=== PATIENT | male | born 1930 | race Caucasian/White ===

== ENCOUNTER 2016-03-01 07:56 | Emergency (ER) | payer MEDICARE, OTHER ==
[~2016-03-01] VITALS: Ht 172.7 cm; Wt 81.2 kg
[~2016-03-01 07:56] MED LIST: AMLO5TAB96 PO; ASPI325T PO; FISH300C2 PO; NIAS10004 PO; OYST500T77 PO; SIMV20TA OR; TAB-TAB PO; VITA400C28 PO
[2016-03-01 08:02] VITALS: BP 143/73; PULSE 87; RESP 16; TEMP 97.6; O2SAT 94
--- NOTE | 2016-03-01 08:39 | PD ---
HPI Chief Complaint: Complaint Time Seen by Provider: 08:35 Travel History International Travel<30 days: No Contact w/Intl Traveler<30days: No Traveled to known affect area: No History of Present Illness HPI Patient presents with concerns of blood clots in his urine for approximately 1 week. Denies any urinary frequency or pain on urination. Reports a similar episode several years ago that resolved. Denies any colicky pain. Denies any nausea or vomiting. Denies any fever. He is followed by urology / Dr. Zhu. Prostate was checked approximately 6 months ago. He does admit to some slight lower back pain after assembling an exercise bike for his . Patient does take an aspirin daily. PFSH Past Medical History Hx Anticoagulant Therapy: Yes (325 MG. ASA DAILY) Arthritis: No Asthma: No Anxiety: No Depression: No Heart Rhythm Problems: No Cardiac Catheterization: No Cardiovascular Problems: Yes (CHOL) High Cholesterol: Yes Chest Pain: No Congestive Heart Failure: No COPD: No Cerebrovascular Accident: No Diabetes: No Diminished Hearing: No Endocrine: No GERD: No Genitourinary: No Hiatal Hernia: No Hypertension: Yes Immune Disorder: No Kidney Stones: No Musculoskeletal: No Neurologic: No Psychiatric: No Reproductive: No Respiratory: No Migraines: No Myocardial Infarction: No Renal Failure: No Seizures: No Sleep Apnea: No Ulcer: No Past Surgical History Abdominal Surgery: Yes (ADHESION REMOVAL) Appendectomy: Yes Arteriovenous Shunt: No Cardiac Surgery: No Cholecystectomy: Yes Coronary Artery Bypass Graft: No Ear Surgery: Yes (CATARACT REMOVAL X2) Endocrine Surgery: No Eye Surgery: No Genitourinary Surgery: No Gynecologic Surgery: No Insulin Pump: No Oral Surgery: No Thoracic Surgery: No Other Surgery: Yes (HERNIA 1999; TURP 1998) Social History Alcohol Use: No Tobacco Use: No Substance Use: No Allergies-Medications (Allergen,Severity, Reaction): Coded Allergies: Sulfa (Verified Allergy, Severe, 03/01/16) Reported Meds & Prescriptions Reported Meds & Active Scripts Active Reported Oxybutynin ER 24 HR (Oxybutynin Chloride) 10 Mg Tab 10 Mg PO HS Losartan (Losartan Potassium) 25 Mg Tab 25 Mg PO DAILY Vitamin D (Cholecalciferol) 2,000 Unit Tab 2,000 Units PO DAILY Vitamin C (Ascorbic Acid) 500 Mg Tab 500 Mg PO DAILY Calcium 600 Mg Tab 600 Mg PO DAILY Fish Oil 600 mg ([place]-3 Fatty Acids) 1 Cap Cap 1 Cap PO DAILY Allopurinol 100 Mg Tab 100 Mg PO DAILY Amlodipine (Amlodipine Besylate) 5 Mg Tab 5 Mg PO DAILY Tamsulosin (Tamsulosin HCl) 0.4 Mg Cap 0.4 Mg PO HS Aspirin 325 Mg Tab 325 Mg PO DAILY Simvastatin 20 Mg Tab 20 Mg PO HS Multivitamin Adults (Multiple Vitamins W/ Minerals) 1 Tab 1 Tab PO DAILY Physical Exam Narrative GENERAL: Well-nourished, well-developed patient. SKIN: Warm and dry. HEAD: Normocephalic. EYES: No scleral icterus. No injection or drainage. NECK: Supple, trachea midline. No JVD or lymphadenopathy. CARDIOVASCULAR: Regular rate and rhythm without murmurs, gallops, or rubs. RESPIRATORY: Breath sounds equal bilaterally. No accessory muscle use. GASTROINTESTINAL: Abdomen soft, non-tender, nondistended. MUSCULOSKELETAL: No cyanosis, or edema. BACK: Nontender without obvious deformity. No CVA tenderness. Data Data Last Documented VS Vital Signs Date Time Temp Pulse Resp B/P Pulse Ox O2 Delivery O2 Flow Rate FiO2 03/01/16 08:02 97.6 87 16 143/73 94 Orders Complete Blood Count With Diff (03/01/16 08:35) Urinalysis - C+S If Indicated (03/01/16 08:35) Labs Laboratory Tests Test 03/01/16 03/01/16 08:30 08:44 Urine Collection Type CLEAN CATCH Urine Color YELLOW Urine Turbidity CLEAR Urine pH 6.0 Urine Specific [place] 1.014 Urine Protein NEG mg/dL Urine Glucose (UA) NEG mg/dL Urine Ketones NEG mg/dL Urine Occult Blood MOD Urine Nitrite NEG Urine Bilirubin NEG Urine Leukocyte Esterase NEG Urine RBC 10-14 /hpf Urine Squamous Epithelial 0-5 /hpf Cells Microscopic Urinalysis Comment CULT NOT INDICATED Urine Collection Time 08:30 White Blood Count 7.7 TH/MM3 Red Blood Count 5.14 MIL/MM3 Hemoglobin 14.9 GM/DL Hematocrit 45.1 % Mean Corpuscular Volume 87.8 FL Mean Corpuscular Hemoglobin 29.0 PG Mean Corpuscular Hemoglobin 33.0 % Concent Red Cell Distribution Width 13.0 % Platelet Count 210 TH/MM3 Mean Platelet Volume 8.4 FL Neutrophils (%) (Auto) 59.7 % Lymphocytes (%) (Auto) 27.5 % Monocytes (%) (Auto) 8.7 % Eosinophils (%) (Auto) 3.1 % Basophils (%) (Auto) 1.0 % Neutrophils # (Auto) 4.6 TH/MM3 Lymphocytes # (Auto) 2.1 TH/MM3 Monocytes # (Auto) 0.7 TH/MM3 Eosinophils # (Auto) 0.2 TH/MM3 Basophils # (Auto) 0.1 TH/MM3 CBC Comment DIFF FINAL Differential Comment MDM Medical Decision Making Medical Screen Exam Complete: Yes Emergency Medical Condition: Yes Differential Diagnosis Cystitis, UTI, nephrolithiasis, benign hematuria Narrative Course Assessment and plan discussed with patient and at bedside. Urinalysis reveals hematuria otherwise negative for acute infection. CBC is within normal limits and patient is not anemic. Diagnosis Primary Impression: Hematuria Additional Instructions: Prophylactic antibiotic, encouraged follow-up with urology for possible cystoscope, encourage fluids and cranberry supplement. Encouraged to hold his daily aspirin. Tylenol warm heat gentle stretching and strengthening and massage for lower back discomfort Med/Other Pt SpecificInfo: Prescription(s) given Scripts Levofloxacin (Levaquin)250 Mg Hwr130 Mg PO DAILY #5 TAB Ref 0 Prov:Nathan Samuel MD 03/01/16 Disposition: 01 DISCHARGE HOME Condition: Good Nathan Samuel MD Mar 01, 2016 08:39
[2016-03-01 08:46] LABS: AUTOMATED NEUTROPHIL # 4.6 TH/MM3 (1.8-7.7); BASOPHIL # 0.1 TH/MM3 (0-0.2); EOSINOPHIL # 0.2 TH/MM3 (0-0.4); EOSINOPHIL % 3.1 % (0.0-4.0); HEMATOCRIT 45.1 % (39.0-51.0); HEMO FLAGS DIFF FINAL; LYMPH % 27.5 % (9.0-44.0); LYMPHOCYTE # 2.1 TH/MM3 (1.0-4.8); MEAN CELL VOLUME 87.8 FL (80.0-100.0); MONO % 8.7 % (0.0-8.0); NEUT % 59.7 % (16.0-70.0); PLATELET COUNT 210 TH/MM3 (150-450); RED BLOOD COUNT 5.14 MIL/MM3 (4.50-5.90); WHITE BLOOD COUNT 7.7 TH/MM3 (4.0-11.0)
[2016-03-01 08:47] LABS: GLUCOSE,URINE NEG (NEG); KETONE, URINE NEG (NEG); NITRITE,URINE NEG (NEG)
[2016-03-01] MEDS ORDERED: AMLO5TAB2 PO (08:49)
[2016-03-01] MEDS ORDERED: OXYB10TA PO (08:49)
[2016-03-01] MEDS ORDERED: VITA20003 PO (08:49)
[2016-03-01] MEDS ORDERED: ASPI325T PO (08:49)
[2016-03-01] MEDS ORDERED: ALLO100T PO (08:49)
[2016-03-01] MEDS ORDERED: VITA500T PO (08:49)
[2016-03-01] MEDS ORDERED: OMEG600C2 PO (08:49)
[2016-03-01] MEDS ORDERED: MULT1TAB84 PO (08:49)
[2016-03-01] MEDS ORDERED: LOSA25TA PO (08:49)
[2016-03-01] MEDS ORDERED: SIMV20TA PO (08:49)
[2016-03-01] MEDS ORDERED: CALC600T13 PO (08:49)
[2016-03-01] MEDS ORDERED: TAMS0.4C4 PO (08:49)
[2016-03-01 08:55] LABS: BLOOD, URINE MOD (NEG); COMMENT (UR) CULT NOT INDICATED; CULTURE IF INDICATED CULT NOT INDICATED; METHOD OF COLLECTION CLEAN CATCH; SQUAMOUS EPITHELIAL CELL URINE 0-5 /hpf (0-5); URINE COLOR YELLOW (YELLW/STRAW)
[2016-03-01] MEDS ORDERED: LEVA250T PO (09:02)
[2016-03-01 09:23] VITALS: BP 133/67
== END 2016-03-01 09:24 | disposition home or self-care (01) ==
LOC: PHED 07:56
DX: R31.9 Hematuria, unspecified (principal); M54.5 Low back pain; I10 Essential (primary) hypertension; E78.00 Pure hypercholesterolemia, unspecified; Z79.82 Long term (current) use of aspirin; Z86.79 Personal history of other diseases of the circulatory system
CPT/HCPCS: 81001; 85025; 99283

== ENCOUNTER 2016-10-14 11:52 | Inpatient (IN) | payer MEDICARE, OTHER ==
[2016-10-14] VITALS (12 sets, daily range): BP systolic 131–141; BP diastolic 53–73; PULSE 59–100; RESP 16–20; TEMP 98.4–98.9; O2SAT 94–100
[~2016-10-14] VITALS: Ht 172.7 cm; Wt 78.5 kg
[~2016-10-14 11:52] MED LIST changes: +ALLO100T PO; +AMLO5TAB2 PO; -AMLO5TAB96 PO; +CALC600T13 PO; -FISH300C2 PO; +LEVA250T PO; +LOSA25TA PO; +MULT1TAB84 PO; -NIAS10004 PO; +OMEG600C2 PO; +OXYB10TA PO; -OYST500T77 PO; -SIMV20TA OR; +SIMV20TA PO; -TAB-TAB PO; +TAMS0.4C4 PO; +VITA20003 PO; -VITA400C28 PO; +VITA500T PO
[2016-10-14] MEDS ORDERED: NITROGLYCERIN 0.4 MG SL 25 TABS/BTL SL STA (11:58)
[2016-10-14] MEDS ORDERED: HEPARIN SODIUM - IV 10,000 UNITS/10 ML VIAL IV STA (11:58)
[2016-10-14] MEDS ORDERED: SODIUM CHLOR 0.9% 1000 ML INJ 1,000 ML IV ONE (11:58)
[2016-10-14] MEDS ORDERED: ASPIRIN 81 MG CHEW TAB PO STA (11:58)
[2016-10-14] MEDS ORDERED: NITROGLYCERIN-D5W 50 MG/250 ML 250 ML IV PRN (12:00)
[2016-10-14] MEDS ORDERED: SODIUM CHLORIDE 0.9% FLUSH 10 ML FLUSH IVF PRN (12:00)
[2016-10-14] MEDS ORDERED: HEPARIN SODIUM - IV 10,000 UNITS/10 ML VIAL ONE ×2 (12:02→12:39)
[2016-10-14] MEDS ORDERED: HEPARIN-NS/PF INJ 1,000 ML ONE (12:03)
--- NOTE | 2016-10-14 12:03 | PD ---
HPI Chief Complaint: Cardiac Complaint Time Seen by Provider: 11:58 Travel History International Travel<30 days: No Contact w/Intl Traveler<30days: No Traveled to known affect area: No History of Present Illness HPI 86-year-old man, history of hypertension hyperlipidemia, presents to the emergency department with rash or like chest pain that started while he was working in the yard. Symptoms were 9 out of 10 in severity. Location is midsternal. They've improved with nitroglycerin with EMS. No clear aggravating or alleviating factors. EMS showed EKG with ST changes inferiorly. Patient denies having had chest pain before. Does not see a stucco applicator. Is otherwise been feeling well before this happened. History Past Medical History Narrative Medical Hypertension Hyperlipidemia Social History Alcohol Use: No Tobacco Use: No (FORMER) Allergies-Medications (Allergen,Severity, Reaction): Coded Allergies: Sulfa (Sulfonamide Antibiotics) (Unverified Allergy, Severe, 09/22/16) Reported Meds & Prescriptions Reported Meds & Active Scripts Active Levaquin (Levofloxacin) 250 Mg Tab 250 Mg PO DAILY Reported Oxybutynin ER 24 HR (Oxybutynin Chloride) 10 Mg Tab 10 Mg PO HS Losartan (Losartan Potassium) 25 Mg Tab 25 Mg PO DAILY Vitamin D (Cholecalciferol) 2,000 Unit Tab 2,000 Units PO DAILY Vitamin C (Ascorbic Acid) 500 Mg Tab 500 Mg PO DAILY Calcium 600 Mg Tab 600 Mg PO DAILY Fish Oil 600 mg ([place]-3 Fatty Acids) 1 Cap Cap 1 Cap PO DAILY Allopurinol 100 Mg Tab 100 Mg PO DAILY Amlodipine (Amlodipine Besylate) 5 Mg Tab 5 Mg PO DAILY Tamsulosin (Tamsulosin HCl) 0.4 Mg Cap 0.4 Mg PO HS Aspirin 325 Mg Tab 325 Mg PO DAILY Simvastatin 20 Mg Tab 20 Mg PO HS Multivitamin Adults (Multiple Vitamins W/ Minerals) 1 Tab 1 Tab PO DAILY Review of Systems Except as stated in HPI: all other systems reviewed are Neg Physical Exam Narrative GENERAL: Uncomfortable appearing 86-year-old male, pale cool diaphoretic. SKIN: Diaphoretic. HEAD: Atraumatic. Normocephalic. EYES: Pupils equal and round. No scleral icterus. No injection or drainage. ENT: No nasal bleeding or discharge. Mucous membranes pink and moist. NECK: Trachea midline. No JVD. CARDIOVASCULAR: Regular rate and rhythm. No murmur appreciated. RESPIRATORY: No accessory muscle use. Clear to auscultation. Breath sounds equal bilaterally. GASTROINTESTINAL: Abdomen soft, non-tender, nondistended. Hepatic and splenic margins not palpable. MUSCULOSKELETAL: No obvious deformities. No edema. NEUROLOGICAL: Awake and alert. No obvious cranial nerve deficits. Motor grossly within normal limits. Normal speech. PSYCHIATRIC: Anxious appearing. Data Data Last Documented VS Vital Signs Date Time Temp Pulse Resp B/P (MAP) Pulse Ox O2 Delivery O2 Flow Rate FiO2 10/14/16 11:59 61 20 132/64 (86) 95 Nasal Cannula 2.00 10/14/16 11:57 98.9 Orders Orders Troponin I (10/14/16 11:58) Ckmb (Isoenzyme) Profile (10/14/16 11:58) Complete Blood Count With Diff (10/14/16 11:58) I-Stat Profile (10/14/16 11:58) I-Stat Creatinine (10/14/16 11:58) Calcium (10/14/16 11:58) Magnesium (Mg) (10/14/16 11:58) Prothrombin Time / Inr (Pt) (10/14/16 11:58) Act Partial Throm Time (Ptt) (10/14/16 11:58) B-Type Natriuretic Peptide (10/14/16 11:58) Chest, Single Ap (10/14/16 11:58) Electrocardiogram (10/14/16 11:58) Oxygen Administration (10/14/16 11:58) Iv Access Insert/Monitor (10/14/16 11:58) Oximetry (10/14/16 11:58) Sodium Chlor 0.9% 1000 Ml Inj (Ns 1000 M (10/14/16 11:58) Sodium Chloride 0.9% Flush (Ns Flush) (10/14/16 12:00) Aspirin Chew (Aspirin Chew) (10/14/16 11:58) Nitroglycerin Sl (Nitrostat Sl) (10/14/16 11:58) Nitroglycerin-D5w 50 Mg/250 Ml (Nitrogly (10/14/16 12:00) Heparin Inj (Heparin Inj) (10/14/16 11:58) Admit Order (Ed Use Only) (10/14/16 ) MDM Medical Decision Making Medical Screen Exam Complete: Yes Emergency Medical Condition: Yes Interpretation(s) My review of EKG: Normal sinus rhythm a rate of 64, normal axis, right bundle branch block, inferior ST elevations with reciprocal anterior precordial ST depressions. Differential Diagnosis STEMI, cardiomyopathy, anxiety, gastritis, other Narrative Course Medical decision making 86-year-old man presents to the emergency department with chest pain. Field EKG was interpreted by me prior to the patient's arrival. Suggestive of ST elevation. STEMI alert was activated on upon patient's arrival based on his EMS EKG and his history. I spoke with Dr. Mehta, he will take the patient emergently to the [facility]. Diagnosis Primary Impression: STEMI (ST elevation myocardial infarction) Esau Castro MD Oct 14, 2016 12:03
[2016-10-14 12:21] LABS: AUTOMATED NEUTROPHIL # 4.4 TH/MM3 (1.8-7.7); BASOPHIL # 0.1 TH/MM3 (0-0.2); BASOPHIL % 0.6 % (0.0-2.0); EOSINOPHIL # 0.2 TH/MM3 (0-0.4); HEMATOCRIT 43.7 % (39.0-51.0); HEMO FLAGS DIFF FINAL; LYMPH % 39.5 % (9.0-44.0); LYMPHOCYTE # 3.5 TH/MM3 (1.0-4.8); MEAN CELL VOLUME 88.8 FL (80.0-100.0); MEAN CORPUSCULAR HEMOGLOBIN 29.7 PG (27.0-34.0); MEAN CORPUSCULAR HGB CONC 33.4 % (32.0-36.0); MONO % 8.5 % (0.0-8.0); NEUT % 49.4 % (16.0-70.0); PLATELET COUNT 184 TH/MM3 (150-450); RED BLOOD COUNT 4.92 MIL/MM3 (4.50-5.90); RED CELL DISTRIBUTION WIDTH 13.8 % (11.6-17.2); WHITE BLOOD COUNT 8.9 TH/MM3 (4.0-11.0)
[2016-10-14] MEDS ORDERED: MIDAZOLAM HCL 2 MG/2 ML VIAL ONE (12:22)
[2016-10-14 12:24] LABS: I-STAT POTASSIUM 3.9 MMOL/L (3.5-4.9); I-STAT SODIUM 144 MMOL/L (138-146)
[2016-10-14 12:29] LABS: APTT (PATIENT) 23.6 SEC (24.3-30.1); PROTHROMBIN TIME - PATIENT 11.2 SEC (9.8-11.6)
[2016-10-14] MEDS ORDERED: ATROPINE SULFATE 1 MG/10 ML SYRINGE ONE (12:35)
[2016-10-14] MEDS ORDERED: TIROFIBAN INFUSION INJ 250 ML IV ONE (12:36)
[2016-10-14] MEDS: TIROFIBAN INFUSION INJ 250 ML IV SCH (12:42)
[2016-10-14 12:44] LABS: CREATINE KINASE 99 U/L (39-308); MAGNESIUM 2.1 MG/DL (1.5-2.5)
[2016-10-14] MEDS ORDERED: TICAGRELOR 90 MG TAB PO ONE (13:08)
[2016-10-14] MEDS ORDERED: SODIUM CHLOR 0.9% 1000 ML INJ 1,000 ML IV SCH (13:20)
[2016-10-14] MEDS ORDERED: SODIUM CHLORIDE 0.9% FLUSH 5 ML FLUSH IVF PRN (13:30)
[2016-10-14] MEDS ORDERED: MISC INFORMATION XX ONE (13:30)
[2016-10-14] MEDS ORDERED: TEMAZEPAM 15 MG CAP PO PRN (13:30)
--- NOTE | 2016-10-14 13:35 | MA ---
cc: DELFINO BRAR M.D. DATE: 10/14/2016 DATE OF : 1930 PROCEDURE Emergency selective coronary angiography, angioplasty and stent of the distal right coronary artery. PROCEDURE NOTES The patient was brought to the cardiac catheterization laboratory in a fasting state after having signed informed consent under emergency conditions in the midst of an acute inferior ST elevation myocardial infarction. The right groin was prepped and draped as per policy and anesthetized with 1% lidocaine. Arterial access was obtained via the right femoral artery and a 6-American sheath placed. Coronary arteriography was performed using 6-American Erika left 4.0 and right progressive catheters. Percutaneous coronary intervention was done as described below. There were no apparent immediate complications. CORONARY ARTERIOGRAPHY The left main has minimal luminal irregularities. The left anterior descending gives rise to two very small diagonals, the first of which has ostial to proximal disease resulting in up to 30% stenosis. The proximal LAD has minimal luminal irregularities. The mid LAD has somewhat eccentric 30-40% stenosis in its proximal third and then distally, still in the mid LAD, there is eccentric 50-65% stenosis. The left circumflex is a medium-sized vessel giving rise to a medium-sized obtuse marginal. There is up to 25% very proximal left circumflex stenosis. The obtuse marginal has overall mild diffuse disease. The right coronary artery is diffusely diseased with PANKAJ grade 0 flow distally where the vessel is totally occluded. The proximal to mid vessel has diffuse disease which is somewhat difficult to quantify, probably up to 30-40% severity diffusely. LEFT VENTRICULOGRAPHY Not done. PERCUTANEOUS CORONARY INTERVENTION DESCRIPTION Aggrastat was given as per protocol. Adequate heparin was given during the procedure to achieve an ACT of 266 seconds. Using a 6-American hockey-stick guiding catheter with side holes the ostium of the right coronary artery was re-engaged. Using a 0.014 [place] guidewire the total occlusion was crossed without difficulty and the tip of the wire positioned distally. Normal flow was reestablished at this point. Pre-dilation was done using a 2.0 mm Euphora balloon catheter. Stenting was done using a 2.25 x 26 mm Resolute stent positioned more distally and then a 2.25 x 14 mm Resolute stent positioned proximally slightly overlapping the initial stent. Both stents were postdilated using a 2.25 mm noncompliant Euphora balloon catheter which was inflated to as high as 16 atmospheres along the length of the stents. Final angiography shows overall good results with reduction of the total occlusion to roughly 0% residual with no definite evidence for dissection or distal embolization. The patient tolerated the procedure well. He was essentially chest pain free at the end of the case. CONCLUSIONS 1. Moderate to severe two-vessel coronary artery disease including a totally occluded distal right coronary artery, the patient's infarct-related vessel. 2. Status post angioplasty and stent x 2 of diffuse disease in the distal right coronary artery. MD RIRI Jeffers/HWOARD /1:14 PM /1:23 PM MTDD
--- NOTE | 2016-10-14 13:55 | CATHPROC ---
RenéSim HIS Report Study Information Study Number Admission Scheduled Start Study Start [id number] Oct 14 2016 11:52AM 10/14/2016 Oct 14 2016 12:11PM [place] Service Cardiac Catheterization Admit Source Facility Department Emergency department [facility] - Asthma Educator Physician and Clinical Staff Initial Maixmo Bravo Police Lieutenant Patrol Nati Jiménez,RAVEN Police Lieutenant Patrol Gage Cooln,RAVEN Other Paul Dempsey,RT(R) Other Michell Wood,RT(R) (BS) Recorder Andreea Loja,DON TECH2 Recorder Sandee Clay,RT(R) Johnny Prince,DON(BS) Procedures Performed Procedure Location (Site) Vessel Name Coronary Angiograms LCA Left Coronary Coronary Angiograms RCA Right Coronary Drug Eluting Inflatio RCA Dist Right Coronary L Heart Cath PTCA RCA Dist Right Coronary Wire insertion Fem Art (right) Femoral Art Equipment Time Child Therapist Description Size Mfg Part Number Used/Scraped [id number] 12:34 [employer] WIRE, [employer] PROWATER 180CM 180CM Used *[id number] WIRE, BALANCE MIDDLEWEIGHT [id number] 13:01 [employer] 190CM Used 190CM *[id number] TRANSDUCER, TRUWAVE [id number] 12:21 STEINBERG RENNER * Used W/STOCKCOCK *[id number] 12:38 [employer] BALLOON, 2.0 20MM EMERGE MR 2.0 20MM Used *[id number] BALLOON, 2.25 20MM NC 12:54 [employer] 2.25 20MM Used QUANTUM APEX MR *[id number] *[id number] *[id number] [id number] *[id number] 12:21 [employer] PACK, CCL CUSTOM * Used *[id number] 12:21 MEDLINE PACER PEN, SKIN DUAL W/ RULER * Used *[id number] BALLOON, 2.25 X 20MM NC [id number] 12:58 MEDTRONIC 20MM Used EUPHORA *[id number] STENT, 2.25 14 RESOLUTE [id number] 12:49 MEDTRONIC 2.25 14 Used INTEGRITY RX *[id number] STENT, 2.25 26 RESOLUTE [id number] 12:47 MEDTRONIC 2.25 26 Used INTEGRITY RX *[id number] 12:40 [facility] 30 PEDRO INDEFLATOR Used *[id number] 12:21 [employer] MEDICAL SHEATH, FR6.5 PRELUDE 11CM FR 6.5 038ACT Used *[id number] 12:21 [employer] MEDICAL WIRE, 3MMJ .035 180CM 180CM Used *[id number] 12:21 [employer]AMIC MANIFOLD, 4 PORT * Used *[id number] 12:21 [employer] OMNIPAQUE, 350 MG, 150ML 150ML [id number] Used [id number] 12:21 [employer] BLANKET,WARM AIR CCL * Used *[id number] Equipment Model, Serial, Lot Number and Expiration Data Description Model Number Serial Number Lot Number Expiration Date BALLOON, 2.0 20MM EMERGE MR [id number] 01-07-2019 BALLOON, 2.25 X 20MM NC [id number] 01-07-2018 EUPHORA STENT, 2.25 14 RESOLUTE [id number] 06-28-2018 INTEGRITY RX STENT, 2.25 26 RESOLUTE [id number] 04-13-2018 INTEGRITY RX History: Current Medications Medication Dosage/Unit Route Frequency Last Date/Time Taken ASA COZAAR Allopurinol NORVASC Zocor History: Allergies Allergy Reaction Sulfa (Sulfonamide Antibiotics) History: Risk Factors Family History of Hypertension Dyslipidemia Previous [place] Previous Heart Failure Premature CAD Yes Yes No No No Prior Valve Prior PCI Prior CABG Surgery No No No Cerebrovascular Peripheral Artery Chronic Lung On Dialysis Diabetes Disease Disease Disease No No No No No History: Symptoms/Diagnosis Selection Items Chest pain History: Stress Tests Stress or Imaging Studies Performed No History: Other Current Smoker Method Quit Packs a Day Years Used Pack Years No Cigarettes 50 Years Ago 1 1 1 Labs Hgb (g/dl) Hct (%) WBC (l/cumm) Platelets (thousands) 11.60-17.00 35.00-51.00 4.00-11.00 150.00-450.00 14.3 42 8.9 184 Glucose (mg/dl) BUN (mg/dl) Creatinine (mg/dl) BUN:Creatinine (1:x) 74.00-106.00 7.00-18.00 0.50-1.30 10.00-20.00 165 29 1.5 19.3 Na (meq/l) K (meq/l) Cl (meq/l) 136.00-145.00 3.50-5.10 98.00-107.00 144 3.9 109 PT (sec) PTT (sec) INR (PTT:PT) 9.80-11.60 24.30-30.10 0.90-1.10 11.2 23.6 1 Troponin I (ng/ml) CPK (u/l) CPK-MB (ng/ML) 0.02-0.05 26.00-308.00 0.50-3.60 0.02 99 Not Drawn Medication Medication Total Dose (Bolus/Oral) Medication Total Dosage/Unit 1% XYLOCAINE 10 mL AGGRASTAT BOLUS 42 mL ATROPINE 0.5 mg BRILLINTA 180 mg FENTANYL 50 mcg HEPARIN 2000 units VERSED 1 mg Medications (Bolus/Oral) Medication Time Given Dosage/Unit Administered By Reason 1% XYLOCAINE 10/14/2016 12:26:54 PM 10 mL Maximo Mehta 10 mL 1% XYLOCAINE given in lab by Maximo Mehta in Right Radial via Subcutaneous. Ordered by Danie Mehta. VERSED 10/14/2016 12:28:00 PM 1 mg DanburyAria whitlockara 1 mg VERSED given in lab by Nati Jiménez RN in Left Antecubital via Peripheral IV. Ordered by Maximo Harden. FENTANYL 10/14/2016 12:29:00 PM 50 mcg JessyNati 50 mcg FENTANYL given in lab by Nati Jiménez RN in Left Antecubital via Peripheral IV. Ordered by Maximo Mehta. ATROPINE 10/14/2016 12:31:30 PM 0.5 mg Gage oClon 0.5 mg ATROPINE given in lab by Gage Colon RN in Left Antecubital via Peripheral IV. Ordered by Maximo Mehta. HEPARIN 10/14/2016 12:40:14 PM 2000 units Gage Colon 2000 units HEPARIN given in lab by Gage Colon RN in Left Antecubital via Peripheral IV. Ordered by Maximo Mehta. AGGRASTAT BOLUS 10/14/2016 12:41:35 PM 42 mL Gage Colon 42 mL AGGRASTAT BOLUS given in lab by Gage Colon RN in Left Antecubital via Peripheral IV. Order ed by Maximo Mehta. BRILLINTA 10/14/2016 1:08:20 PM 180 mg Nati Jiménez 180 mg BRILLINTA given in lab by Nati Jiménez, RN in Per mouth via Oral. Ordered by Maximo Mehta. Medication (Drip) Medication Time Given Dosage/Unit Concentration/Unit Diluent (ml) Solution AGGRASTAT DRIP 10/14/2016 12:42:30 PM 0.078 mcg/kg/min 12.5 mg 250 NaCl .9 0.078 mcg/kg/min AGGRASTAT DRIP given in lab by Gage Colon, RAVEN in Left Antecubital via Peripheral IV. Pump/Drip Flow = 7.5 ml/hr using NaCl .9 with a concentration of 12.5 mg in 250 ml. Ordered by Maximo Mehta. IV Solutions 10/14/2016 12:11:43 PM 0 mL (IV) 500 NaCl .9 Patient arrived on IV Solutions in Left Antecubital via Peripheral IV. Pump/Drip Flow = 20 ml/hr usin g NaCl .9. Initial Case Assessment Cardiovascular HR Rhythm NIBP Chest Pain 61 sr 131/69 8 Circulatory - Right Pulses Dorsalis Pedis Posterior Tibial Femoral 1 2 2 Scale (0,1,2,3,4,d) Circulatory - Left Pulses Dorsalis Pedis Posterior Tibial Femoral 2 2 Scale (0,1,2,3,4,d) Neurological State Oriented to time-place- Alert Moves all extremities person Respiration - General Respiration Rate SpO2 (%) O2 (lpm) (B/min) 15 99 2 Final Case Assessment Cardiovascular HR Rhythm NIBP Chest Pain 108 sr 145/61 0 Edema Present Skin color Skin None Normal Warm Dry Circulatory - Right Pulses Dorsalis Pedis Posterior Tibial Femoral 1 2 2 Scale (0,1,2,3,4,d) Circulatory - Left Pulses Dorsalis Pedis Posterior Tibial Femoral 2 2 Scale (0,1,2,3,4,d) Neurological State Oriented to time-place- Alert Moves all extremities person Respiration - General Respiration Rate SpO2 (%) O2 (lpm) (B/min) 23 98 2 Chronological Log Time Study Chronological Log 12:00:14 Emergency Room notified that Asthma Educator is ready. 12:11:19 Patient arrived directly from ER. 12:11:25 Patient Name, D.O.B, / Armband Verified By R.N. 12:11:27 Pre-op and post- op instructions given; patient acknowledges understanding of instructions. 12:11:28 Verbal Stimulation=2 Physical Stimulation=2 Airway=2 Respiration=2 TOTAL=8. (0=absent, 1=li mited, 2=present) 12:11:30 Presedation assessment performed by Asthma Educator RN. 12:11:32 Consent signed by the physician and the patient and verified by the Asthma Educator staff. 12:11:33 Patient has been NPO for More than 6Hrs. 12:11:34 Skin Breakdown- 12:11:36 Disposable Defibrillator Pads Placed On Patient. 12:11:37 Trent Prominences Protected 12:11:40 A # 20 IV was noted in the Hand (right). Grade = 0 12:11:42 A # 20 IV was noted in the Antecubital (left). Grade = patent 12:11:43 Patient arrived on IV Solutions in Left Antecubital via Peripheral IV. Pump/Drip Flow = 20 ml/hr using NaCl .9. 12:11:45 History and physical on the chart or being dictated. Vitals capture started with the following parameters, Patient=Adult, Interval=5 min, Initial Pr qmgwcv=196 mmHg, 12:13:38 Deflation Rate=5 mmHg, Cuff placed on Left Arm 12:14:19 HR=72 bpm, DWWE=852/69 mmhg, SpO2=99.0 %, Pain=8, Quan=10 12:16:50 Reference ECG taken Assessment: Initial Case, HR=61 BPM, Rhythm=sr, QGCX=941/69 mmhg, Chest Pain=8 Right Pulses: Gene Ped=1, Post Tib=2, Femoral=2 12:17:03 Left Pulses: Gene Ped=2, Femoral=2 Neurological: State=Alert, Ox3, ANAND Respiration: Resp=15 B/min, SpO2=99 %, O2=2 lpm 12:19:16 HR=66 bpm, DGUX=084/67 mmhg, SpO2=99.0 %, Resp=21 B/min, Pain=8, Quan=10 12:21:32 Pressure channel 1 zeroed. 12:22:00 MD paged 12:23:53 MD arrived. 12:24:17 HR=65 bpm, JNEN=786/65 mmhg, SpO2=99.0 %, Resp=23 B/min Time Out. Correct patient, correct procedure,correct physician, power injector not loaded with contrast with surgical 12::23 team present. Time Out Concurred by MD, individual staff in procedure. 12::45 Case Start 12::54 10 mL 1% XYLOCAINE given in lab by Maximo Mehta in Right Radial via Subcutaneous. Ordered b y Maximo Mehta. 12::37 Access site was Right Femoral Artery. 12::42 A SHEATH, FR6.5 PRELUDE 11CM FR 6.5 was advanced into the Fem Art (right) using the Percuta neous technique. 12:28:00 1 mg VERSED given in lab by Nati Jiménez, RN in Left Antecubital via Peripheral IV. Orde red by Maximo Mehta. A JL 4.0 INFINITI CATHETER FR 6 was advanced over a wire. OMNIPAQUE, 350 MG, 150ML 150ML was us ed for 12:28:14 injections. 12::45 The LCA was injected and visualized at various angles. OMNIPAQUE, 350 MG, 150ML 150ML used . 12:29:00 50 mcg FENTANYL given in lab by Nati Jiménez, RAVEN in Left Antecubital via Peripheral IV. Ordered by Maximo Mehta. 12:29:18 HR=85 bpm, GHTP=493/76 mmhg, SpO2=99.0 %, Resp=23 B/min After removing the current catheter a 3DRC INFINITI CATHETER FR 6 was advanced over a WIRE, 3MM J .035 180CM 12:29:58 180CM. 12:30:36 The RCA was injected and visualized at various angles. OMNIPAQUE, 350 MG, 150ML 150ML used . 12:31:30 0.5 mg ATROPINE given in lab by Gage Colon, RAVEN in Left Antecubital via Peripheral IV. O rdered by Maximo Mehta. 12:32:30 Catheter was removed 12:33:02 Activated Clotting Time Drawn 12:34:19 HR=62 bpm, WKAA=705/66 mmhg, SpO2=91.0 %, Resp=13 B/min A HS SH GUIDE CATHETER FR 6 was advanced over a wire. OMNIPAQUE, 350 MG, 150ML 150ML was used f or 12:35:14 injections. 12:35:58 A WIRE, ASAHI PROWATER 180CM 180CM was inserted via Fem Art (right). 12:38:30 Reperfusion noted. A BALLOON, 2.0 20MM EMERGE MR 2.0 20MM was inserted over WIRE, ASAHI PROWATER 180CM 180CM via t he Fem 12:39:13 Art (right). 12:39:18 HR=96 bpm, FKZQ=941/79 mmhg, SpO2=96.0 %, Resp=3 B/min A BALLOON, 2.0 20MM EMERGE MR 2.0 20MM over a WIRE, ASAHI PROWATER 180CM 180CM in the RCA Dist was 12:40:00 inflated using a 30 PEDRO INDEFLATOR at 8 pedro for 35 sec. 12:40:14 2000 units HEPARIN given in lab by Gage Colon RN in Left Antecubital via Peripheral IV . Ordered by Maximo Metha. A BALLOON, 2.0 20MM EMERGE MR 2.0 20MM over a WIRE, ASAHI PROWATER 180CM 180CM in the RCA Dist was 12:40:58 inflated using a 30 PEDRO INDEFLATOR at 10 pedro for 30 sec. A BALLOON, 2.0 20MM EMERGE MR 2.0 20MM over a WIRE, ASAHI PROWATER 180CM 180CM in the RCA Dist was 12:41:34 inflated using a 30 PEDRO INDEFLATOR at 10 pedro for 30 sec. 42 mL AGGRASTAT BOLUS given in lab by Gage Colon, RAVEN in Left Antecubital via Peripheral IV. Ordered by Janine 12:41:35 Maximo. 0.078 mcg/kg/min AGGRASTAT DRIP given in lab by Gage Colon, RAVEN in Left Antecubital via Veronica pheral IV. Pump/Drip 12:42:30 Flow = 7.5 ml/hr using NaCl .9 with a concentration of 12.5 mg in 250 ml. Ordered by London Mehta. A BALLOON, 2.0 20MM EMERGE MR 2.0 20MM over a WIRE, ASAHI PROWATER 180CM 180CM in the RCA Dist was 12:42:30 inflated using a 30 PEDRO INDEFLATOR at 10 pedro for 30 sec. A BALLOON, 2.0 20MM EMERGE MR 2.0 20MM over a WIRE, ASAHI PROWATER 180CM 180CM in the RCA Dist was 12:43:29 inflated using a 30 PEDRO INDEFLATOR at 12 pedro for 20 sec. 12:44:19 HR=94 bpm, CDDJ=725/75 mmhg, SpO2=99.0 %, Resp=9 B/min A BALLOON, 2.0 20MM EMERGE MR 2.0 20MM over a WIRE, ASAHI PROWATER 180CM 180CM in the RCA Dist was 12:45:00 inflated using a 30 PEDRO INDEFLATOR at 10 pedro for 25 sec. 12:46:04 Balloon Removed. A STENT, 2.25 26 RESOLUTE INTEGRITY RX 2.25 26 was advanced through a HS SH GUIDE CATHETER FR 6 over a 12:47:40 WIRE, ASAHI PROWATER 180CM 180CM. A STENT, 2.25 26 RESOLUTE INTEGRITY RX 2.25 26 was deployed using a 30 PEDRO INDEFLATOR at 9 atmo spheres for 12:48:00 30 seconds in the RCA Dist. 12:49:11 Delivery device removed, stent deployed. 12:49:20 EQ=783 bpm, PWKF=656/68 mmhg, SpO2=99.0 %, Resp=17 B/min A STENT, 2.25 14 RESOLUTE INTEGRITY RX 2.25 14 was advanced through a HS SH GUIDE CATHETER FR 6 over a 12:50:45 WIRE, ASAHI PROWATER 180CM 180CM. A STENT, 2.25 14 RESOLUTE INTEGRITY RX 2.25 14 was deployed using a 30 PEDRO INDEFLATOR at 12 pedro ospheres 12:51:04 for 30 seconds in the RCA Dist. 12:51:40 Delivery device removed, stent deployed. A BALLOON, 2.25 20MM NC QUANTUM APEX MR 2.25 20MM was inserted over WIRE, ASAHI PROWATER 180CM 180CM 12:53:43 via the Fem Art (right). 12:54:19 HR=96 bpm, XLPC=387/70 mmhg, SpO2=99.0 %, Resp=16 B/min 12:56:03 Balloon Removed, not inflated. A BALLOON, 2.25 X 20MM NC EUPHORA 20MM was inserted over WIRE, ASAHI PROWATER 180CM 180CM via t he Fem 12:57:55 Art (right). 12:58:19 Activated Clotting Time Drawn 12:59:20 HR=97 bpm, WIVP=902/69 mmhg, SpO2=99.0 %, Resp=16 B/min 13:00:23 Balloon Removed, not inflated. 13:01:18 A WIRE, BALANCE MIDDLEWEIGHT 190CM 190CM was inserted via Fem Art (right). A BALLOON, 2.25 X 20MM NC EUPHORA 20MM was inserted over WIRE, BALANCE MIDDLEWEIGHT 190CM 190CM via 13:03:20 the Fem Art (right). 13:04:05 ACT (Normal Range 90-180) = 266 13:04:17 FE=260 bpm, LWFT=922/79 mmhg, QlT4=596.0 %, Resp=17 B/min 13:04:31 [facility] A BALLOON, 2.25 X 20MM NC EUPHORA 20MM over a WIRE, BALANCE MIDDLEWEIGHT 190CM 190CM in the RCA Dist 13:04:48 was inflated using a 30 PEDRO INDEFLATOR at 15 pedro for 30 sec. A BALLOON, 2.25 X 20MM NC EUPHORA 20MM over a WIRE, BALANCE MIDDLEWEIGHT 190CM 190CM in the RCA Dist 13:05:38 was inflated using a 30 PEDRO INDEFLATOR at 16 pedro for 30 sec. A BALLOON, 2.25 X 20MM NC EUPHORA 20MM over a WIRE, BALANCE MIDDLEWEIGHT 190CM 190CM in the RCA Dist 13:06:22 was inflated using a 30 PEDRO INDEFLATOR at 16 pedro for 30 sec. 13:07:04 Balloon Removed. 13:07:48 Wire removed ([facility]) 13:08:20 180 mg BRILLINTA given in lab by Nati Jiménez, RAVEN in Per mouth via Oral. Ordered by Maximo Devine. 13:08:35 Catheter was removed 13:08:56 Case End 13:09:20 SP=090 bpm, YQQH=550/71 mmhg, SpO2=99.0 %, Resp=15 B/min 13:10:43 In the Fem Art (right) the SHEATH, FR6.5 PRELUDE 11CM FR 6.[address] by Maximo Mehta. 13:11:03 Sterile dressing applied to site 13:11:04 No case complications noted. 13:11:08 Cine recording checked. 13:11:10 Bedside Report will be given. 13:11:12 Implantable Device card placed in patient's chart. 13:11:23 Contrast Scanned 13:11:27 A Left Heart Cath was performed. 13:14:23 TH=597 bpm, QBUU=570/61 mmhg, SpO2=98.0 %, Resp=26 B/min Assessment: Final Case, JG=091 BPM, Rhythm=sr, UMVS=978/61 mmhg, Chest Pain=0, Edema=None, Kelly r=Normal, Skin = Warm, Dry Right Pulses: Gene Ped=1, Post Tib=2, Femoral=2 13:14:51 Left Pulses: Gene Ped=2, Femoral=2 Neurological: State=Alert, Ox3, ANAND Respiration: Resp=23 B/min, SpO2=98 %, O2=2 lpm 13:19:20 QO=767 bpm, PGAW=409/82 mmhg, SpO2=98.0 %, Resp=18 B/min Vitals capture started with the following parameters, Patient=Adult, Interval=5 min, Initial Pr bcvzmw=243 mmHg, 13:47:26 Deflation Rate=5 mmHg, Cuff placed on Left Arm 13:48:05 VP=406 bpm, VUKD=827/74 mmhg, SpO2=99.0 %, Resp=15 B/min, Pain=0 13:52:52 Waiting for bed assignment 13:53:02 HM=796 bpm, YDFR=006/75 mmhg, SpO2=98.0 %, Resp=17 B/min 13:53:35 Patient moved to bed End Study - Contrast Media Used In Study Contrast Total Opened (mL) Total Used (mL) Total Wasted (mL) Omnipaque 140 140 0 End Study - Maximum Contrast Load Max Contrast Load (mL) 266.7 End Study - Radiation Exposure Fluoro Time (minutes) 13.1 End Study - Patient Disposition Complications Transferred To Interventional Outcome No Telemetry Bed successful
--- NOTE | 2016-10-14 14:41 | MB ---
cc: DELFINO BRAR M.D. DATE OF CONSULTATION: 10/14/2016 DATE OF : 1930 REASON FOR CONSULTATION Acute ST-elevation myocardial infarction. HISTORY OF PRESENT ILLNESS The patient is an 86-year-old white male with a history of hypertension and hyperlipidemia, who was in his usual state of good health up until this morning when he began to experience severe substernal chest discomfort associated with diaphoresis and slight nausea. He came to the emergency department within an hour where EKG showed evidence for acute inferior and lateral ST elevation myocardial infarction. The patient states he was outside working fairly hard in the yard when he began to experience the chest pain. He has never experienced similar discomfort in the past. He denies dizziness, syncope, near-syncope, palpitations, pedal edema, paroxysmal nocturnal dyspnea. PAST MEDICAL HISTORY 1. Hypertension. 2. Hyperlipidemia. 3. Small bowel obstruction 2011. PAST SURGICAL HISTORY 1. Transurethral resection of the prostate. 2. Exploratory laparotomy and adhesiolysis. 3. Appendectomy. 4. Cholecystectomy. 5. Right inguinal hernia repair. MEDICATIONS His cardiac medications at home: 1. Losartan 25 mg q. daily. 2. Aspirin 81 mg q. daily. 3. Amlodipine 5 mg q. daily. 4. Simvastatin 20 mg q.h.s. ALLERGIES SULFA. FAMILY HISTORY Noncontributory. SOCIAL HISTORY The patient is a former smoker. There is no history of alcohol abuse. REVIEW OF SYSTEMS As in the history of present illness, otherwise negative or noncontributory. He also denies headache, abdominal pain, melena, dyspepsia, bright red blood per rectum. PHYSICAL EXAMINATION VITAL SIGNS: On physical examination his blood pressure is 135/75 with a pulse of 50, respirations 15. GENERAL: In general he is a well-developed, well-nourished white male in no acute distress. HEENT/NECK: Jugular venous pressure is normal. Carotid pulses are 2+ bilaterally and without bruits. CHEST: Examination of the chest reveals clear lung morales. CARDIAC: On cardiac examination he has a regular rhythm and rate with a grade 1-2/6 systolic ejection murmur heard at the base. The S2 heart sound is normal. No gallop is audible. ABDOMEN: On abdominal examination he has a soft, nontender abdomen. Bowel sounds are present. There is no definite hepatosplenomegaly. EXTREMITIES: Examination of the extremities reveals no clubbing, cyanosis or edema. Peripheral pulses are normal throughout. LABORATORY Laboratory data includes normal CBC, BUN 29, creatinine 1.5, potassium 3.9. EKG EKG shows sinus rhythm, inferior and lateral ST elevation with reciprocal changes consistent with acute injury pattern. IMPRESSION Acute inferior and lateral ST elevation myocardial infarction in this 86-year-old white male with a history of hypertension, hyperlipidemia. At this time he continues to have severe substernal chest pain associated with ST elevation. Therefore he has been recommended emergency cardiac catheterization with probable percutaneous coronary intervention. The nature of these procedures and potential risks including but not limited to , myocardial infarction, stroke, arrhythmia, bleeding, infection, renal failure, have been outlined to the patient. He wishes to proceed. RECOMMENDATIONS 1. Emergency cardiac catheterization. 2. Eventually start beta aston therapy and continue his angiotensin receptor aston. 3. Check a fasting lipid profile and continue statin therapy. MD RIRI Jeffers/HOWARD /1:55 PM /2:30 PM MTDTrue
--- NOTE | 2016-10-14 14:59 | PD.CONS ---
HPI Service [facility] Consult Requested By Dr. Mehta. Reason for Consult Medical management Primary Care Physician Unknown Diagnoses: History of Present Illness This is a 86-year-old male past medical history of hypertension, lipidemia, and BPH who presented with chest pain. Patient stated that he was putting up plywood and then went to the hospital chest pain. Chest pain described as pressure-like, midsternal, nonradiating. Patient was given aspirin nitroglycerin by the EMS and he said that chest pain resolved. In the emergency primary he was found to be in STEMI so STEMI alert called. 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 Patient also had angioplasty and stent of a diffuse disease in the distal right coronary artery. At the moment patient is chest pain-free. His is at the bedside during the interview. All other review symptoms reviewed and negative. Past Family Social History Allergies: Coded Allergies: Sulfa (Sulfonamide Antibiotics) (Unverified Allergy, Severe, 10/14/16) Past Medical History 1. Hypertension. 2. Hyperlipidemia. 3. Small bowel obstruction 2011. 4. BPH Past Surgical History 1. Transurethral resection of the prostate. 2. Exploratory laparotomy and adhesiolysis. 3. Appendectomy. 4. Cholecystectomy. 5. Right inguinal hernia repair. Reported Medications Reported Meds & Active Scripts Active Reported Oxybutynin ER 24 HR (Oxybutynin Chloride) 10 Mg Tab 10 Mg PO HS Losartan (Losartan Potassium) 25 Mg Tab 25 Mg PO DAILY Vitamin D (Cholecalciferol) 2,000 Unit Tab 2,000 Units PO DAILY Allopurinol 100 Mg Tab 100 Mg PO DAILY Amlodipine (Amlodipine Besylate) 5 Mg Tab 5 Mg PO DAILY Tamsulosin (Tamsulosin HCl) 0.4 Mg Cap 0.4 Mg PO HS Aspirin 325 Mg Tab 325 Mg PO DAILY Simvastatin 20 Mg Tab 20 Mg PO HS Family History Patient's father had an UT at age of 43. Social History He said he smoked as a child but stopped early on in 1960s. Denies any alcohol illicit drug use. Physical Exam Vital Signs Vital Signs Date Time Temp Pulse Resp B/P (MAP) Pulse Ox O2 Delivery O2 Flow Rate FiO2 10/14/16 12:27 10/14/16 12:25 97 10/14/16 12:25 69 24 98 Nasal Cannula 2.00 10/14/16 12:25 97 Nasal Cannula 2.00 10/14/16 11:59 61 20 132/64 (86) 95 Nasal Cannula 2.00 10/14/16 11:57 98.9 59 20 94 Physical Exam GENERAL: This is a well-nourished, well-developed patient, in no apparent distress. SKIN: Right groin catheter in place. With pressure dressing HEAD: Atraumatic. Normocephalic. No temporal or scalp tenderness. EYES: Pupils equal round and reactive. Extraocular motions intact. No scleral icterus. No injection or drainage. ENT: Nose without bleeding, purulent drainage or septal hematoma. Throat without erythema, tonsillar hypertrophy or exudate. Uvula midline. Airway patent. NECK: Trachea midline. No JVD or lymphadenopathy. Supple, nontender, no meningeal signs. CARDIOVASCULAR: Regular rate and rhythm without murmurs, gallops, or rubs. RESPIRATORY: Clear to auscultation. Breath sounds equal bilaterally. No wheezes , rales, or rhonchi. GASTROINTESTINAL: Abdomen soft, non-tender, nondistended. No hepato-splenomegaly , or palpable masses. No guarding. MUSCULOSKELETAL: Extremities without clubbing, cyanosis, or edema. No joint tenderness, effusion, or edema noted. No calf tenderness. Negative Homans sign bilaterally. NEUROLOGICAL: Awake and alert. Cranial nerves II through XII intact. Motor and sensory grossly within normal limits. Five out of 5 muscle strength in all muscle groups. Normal speech. Laboratory Laboratory Tests Test 10/14/16 12:00 White Blood Count 8.9 Red Blood Count 4.92 Hemoglobin 14.6 Bedside Hemoglobin 14.3 Hematocrit 43.7 Bedside Hematocrit 42.0 Mean Corpuscular Volume 88.8 Mean Corpuscular Hemoglobin 29.7 Mean Corpuscular Hemoglobin Concent 33.4 Red Cell Distribution Width 13.8 Platelet Count 184 Mean Platelet Volume 9.0 Neutrophils (%) (Auto) 49.4 Lymphocytes (%) (Auto) 39.5 Monocytes (%) (Auto) 8.5 Eosinophils (%) (Auto) 2.0 Basophils (%) (Auto) 0.6 Neutrophils # (Auto) 4.4 Lymphocytes # (Auto) 3.5 Monocytes # (Auto) 0.8 Eosinophils # (Auto) 0.2 Basophils # (Auto) 0.1 CBC Comment DIFF FINAL Differential Comment Prothrombin Time 11.2 Prothromb Time International Ratio 1.0 Activated Partial Thromboplast Time 23.6 Bedside Sodium 144 Bedside Potassium 3.9 Bedside Chloride 109 Bedside Blood Urea Nitrogen 29 Bedside Creatinine 1.5 Bedside Glucose 165 Calcium Level 8.0 Magnesium Level 2.1 Total Creatine Kinase 99 Troponin I LESS THAN 0.02 B-Type Natriuretic Peptide 104 Result Diagram: 10/14/16 1200 Assessment and Plan Assessment and Plan 86-year-old male with possible history of hypertension, BPH, hyperlipidemia who presented with chest pain STEMI -s/p angioplasty and stent of diffuse disease in the distal right coronary artery. Cardiac catheterization showing moderate to severe two-vessel coronary artery disease including a totally occluded distal right coronary artery, the patient's infarct-related vessel. -Being managed by car salesman Dr. Feliciano. -Continue with telemetry. Hypertension/hyperlipidemia/BPH -Home medication resumed. DVT prophylaxis -Patient already received multiple anticoagulants secondary to STEMI. Meena Engel MD Oct 14, 2016 14:59
[2016-10-14] MEDS ORDERED: IOHEXOL 350 MG/ML 100 ML BTL (for Cath Lab) OTHER ONE (15:02)
--- NOTE | 2016-10-14 16:25 | RADRPT ---
EXAM DATE/TIME: 10/14/2016 15:53 [facility] COMPARISON: No previous studies available for comparison. INDICATIONS : Stroke alert. MEDICAL HISTORY : None. SURGICAL HISTORY : None. ENCOUNTER: Initial ACUITY: 1 day PAIN SCORE: 0/10 LOCATION: Bilateral chest FINDINGS: A single view of the chest demonstrates the lungs to be symmetrically aerated with left perihilar and medial left base atelectatic changes. Lungs are otherwise clear. No effusion. Heart size is normal. Osseous structures are intact. CONCLUSION: 1. Mild atelectatic changes in the left perihilar distribution and medial left base. 2. No confluent infiltrate. Waqas Sargent MD on October 14, 2016 at 16:23 Board Certified Radiologist. This report was verified electronically.
[2016-10-14] MEDS: TICAGRELOR 90 MG TAB PO SCH (21:00)
[2016-10-14] MEDS: CARVEDILOL 3.125 MG TAB PO SCH (21:17)
[2016-10-14] MEDS: ATORVASTATIN 40 MG TAB PO SCH (21:18)
[2016-10-14] MEDS: ENALAPRIL MALEATE 5 MG TAB PO SCH (21:19)
[2016-10-15] VITALS (22 sets, daily range): BP systolic 145–155; BP diastolic 68–82; PULSE 66–100; RESP 16–18; TEMP 97.7–98.2; O2SAT 95–97
[2016-10-15] MEDS: TIROFIBAN INFUSION INJ 250 ML IV SCH (06:42)
[2016-10-15 06:47] LABS: AUTOMATED NEUTROPHIL # 6.4 TH/MM3 (1.8-7.7); BASOPHIL # 0.1 TH/MM3 (0-0.2); BASOPHIL % 0.5 % (0.0-2.0); EOSINOPHIL # 0.2 TH/MM3 (0-0.4); EOSINOPHIL % 1.9 % (0.0-4.0); HEMATOCRIT 40.7 % (39.0-51.0); HEMO FLAGS DIFF FINAL; LYMPH % 20.7 % (9.0-44.0); MEAN CELL VOLUME 88.5 FL (80.0-100.0); MEAN CORPUSCULAR HEMOGLOBIN 29.9 PG (27.0-34.0); MEAN CORPUSCULAR HGB CONC 33.8 % (32.0-36.0); MONO % 11.2 % (0.0-8.0); NEUT % 65.7 % (16.0-70.0); PLATELET COUNT 169 TH/MM3 (150-450); RED CELL DISTRIBUTION WIDTH 14.2 % (11.6-17.2); WHITE BLOOD COUNT 9.7 TH/MM3 (4.0-11.0)
[2016-10-15 07:07] LABS: BICARBONATE 26.2 MEQ/L (21.0-32.0); POTASSIUM 3.9 MEQ/L (3.5-5.1)
[2016-10-15 07:17] LABS: HDL CHOLESTEROL 33.7 MG/DL (40.0-60.0)
[2016-10-15] MEDS: TICAGRELOR 90 MG TAB PO SCH ×2 (08:30→21:15)
[2016-10-15] MEDS: ASPIRIN 81 MG CHEW TAB PO SCH (08:31)
[2016-10-15] MEDS: ENALAPRIL MALEATE 5 MG TAB PO SCH ×2 (08:31→21:16)
[2016-10-15] MEDS: CARVEDILOL 3.125 MG TAB PO SCH ×2 (08:32→21:16)
--- NOTE | 2016-10-15 09:52 | HHI.PR ---
Subjective Remarks f/u for NSTEMI Deny any chest pain or shortness of breathing. Patient stated that he is doing well. He has 4 washcloth to wash his eyes. Otherwise no complaints. Objective Vitals Vital Signs Date Time Temp Pulse Resp B/P (MAP) Pulse Ox O2 Delivery O2 Flow Rate FiO2 10/15/16 08:00 73 10/15/16 08:00 98.1 72 16 148/82 (104) 96 10/15/16 06:00 68 10/15/16 05:04 72 10/15/16 04:00 67 10/15/16 03:00 71 10/15/16 03:00 98.2 69 16 145/68 (93) 95 10/15/16 02:00 67 10/15/16 01:00 71 10/15/16 00:00 66 10/14/16 23:00 72 10/14/16 23:00 98.8 70 16 141/73 (95) 94 10/14/16 22:00 68 10/14/16 21:00 78 10/14/16 20:00 86 10/14/16 19:00 78 10/14/16 19:00 98.5 86 16 140/68 (92) 94 10/14/16 18:00 96 10/14/16 17:00 98 10/14/16 16:00 100 10/14/16 15:00 100 10/14/16 15:00 98.4 94 20 131/53 (79) 100 10/14/16 12:27 10/14/16 12:25 97 10/14/16 12:25 69 24 98 Nasal Cannula 2.00 10/14/16 12:25 97 Nasal Cannula 2.00 10/14/16 11:59 61 20 132/64 (86) 95 Nasal Cannula 2.00 10/14/16 11:57 98.9 59 20 94 I/O 10/14/16 10/14/16 10/14/16 10/15/16 10/15/16 10/15/16 07:00 15:00 23:00 07:00 15:00 23:00 Intake Total 640 ml 872 ml Output Total 800 ml 450 ml Balance -160 ml 422 ml Intake Oral 640 ml 480 ml IV Total 392 ml Output Urine Total 800 ml 450 ml # Voids 1 # Bowel Movements 1 Result Diagram: 10/15/16 0505 10/15/16 0505 Objective Remarks GENERAL: in NAD SKIN: Pressure dressing in the right groin area with mild bleeding noted on bandage. HEAD: Normocephalic. EYES: No scleral icterus. No injection or drainage. NECK: Supple, trachea midline. No JVD or lymphadenopathy. CARDIOVASCULAR: Regular rate and rhythm without murmurs, gallops, or rubs. RESPIRATORY: Breath sounds equal bilaterally. No accessory muscle use. GASTROINTESTINAL: Abdomen soft, non-tender, nondistended. MUSCULOSKELETAL: No cyanosis, or edema. BACK: Nontender without obvious deformity. No CVA tenderness. Medications and IVs Current Medications Sodium Chloride 1,000 ml @ 0 mls/hr Q0M ONCE IV ; Start 10/14/16 at 11:58; Stop 10/14/16 at 12:02; Status DC Sodium Chloride (NS Flush) 2 ml UNSCH PRN IVF FLUSH AFTER USING IV ACCESS; Start 10/14/16 at 12:00 Aspirin (Aspirin Chew) 324 mg NOW STAT PO ; Start 10/14/16 at 11:58; Stop at 12:02; Status DC Nitroglycerin (Nitrostat Sl) 0.4 mg NOW STAT SL ; Start 10/14/16 at 11:58; Stop 10/14/16 at 12:02; Status DC Nitroglycerin/ Dextrose 250 ml @ 3 mls/hr TITRATE PRN IV for angina or ST elevation; Start 10/14/16 at 12:00 Heparin Sodium (Porcine) (Heparin Inj) 4,800 units NOW STAT IV Last administered on 10/14/16 12:04; Start 10/14/16 at 11:58; Stop 10/14/16 at 12:02; Status DC Heparin Sodium (Porcine) (Heparin Inj) 10,000 units STK-MED ONCE .ROUTE Last administered on 10/14/16 12:39; Start 10/14/16 at 12:02; Stop 10/14/16 at 12:03; Status DC Heparin Sodium/ Sodium Chloride 1,000 ml @ As Directed STK-MED ONCE .ROUTE Last administered on 10/14/16 12:03; Start 10/14/16 at 12:03; Stop 10/14/16 at 12: 04; Status DC Midazolam HCl (Versed Inj) 2 mg STK-MED ONCE .ROUTE Last administered on 12:22; Start 10/14/16 at 12:22; Stop 10/14/16 at 12:23; Status DC Fentanyl Citrate (fentaNYL INJ) 100 mcg STK-MED ONCE .ROUTE Last administered on 10/14/16 12:27; Start 10/14/16 at 12:27; Stop 10/14/16 at 12:28; Status DC Atropine Sulfate (Atropine Inj) 1 mg STK-MED ONCE .ROUTE Last administered on 12:35; Start 10/14/16 at 12:35; Stop 10/14/16 at 12:36; Status DC Tirofiban/Sodium Chloride 250 ml @ As Directed STK-MED ONCE IV ; Start 10/14/16 at 12:36; Stop 10/14/16 at 12:37; Status DC Heparin Sodium (Porcine) (Heparin Inj) 10,000 units STK-MED ONCE .ROUTE Last administered on 10/14/16 12:39; Start 10/14/16 at 12:39; Stop 10/14/16 at 12:40; Status DC Ticagrelor (Brilinta) 180 mg STK-MED ONCE PO Last administered on 10/14/16 13: 08; Start 10/14/16 at 13:08; Stop 10/14/16 at 13:09; Status DC Sodium Chloride 1,000 ml @ 100 mls/hr Q10H IV Last administered on 10/14/16 23 :20; Start 10/14/16 at 13:20; Stop 10/15/16 at 01:19; Status DC IV Flush (NS Flush) 2 ml UNSCH PRN IVF FLUSH AFTER USING IV ACCESS; Start at 13:30 Temazepam (Restoril) 15 mg HS PRN PO SLEEP; Start 10/14/16 at 13:30 Aspirin (Aspirin Chew) 81 mg DAILY PO Last administered on 10/15/16 08:31; Start 10/15/16 at 09:00 Ticagrelor (Brilinta) 90 mg BID PO Last administered on 10/15/16 08:30; Start 10/14/16 at 21:00 Tirofiban/Sodium Chloride 250 ml @ 14.4 mls/hr [id number] IV Last administered on 10/14/16 12:42; Start 10/14/16 at 13:20; Stop 10/15/16 at 07:19; Status DC Miscellaneous Information 1 ONCE ONCE XX ; Start 10/14/16 at 13:30; Stop at 14:20; Status DC Atorvastatin Calcium (Lipitor) 40 mg HS PO Last administered on 10/14/16 21:18 ; Start 10/14/16 at 21:00 Carvedilol (Coreg) 3.125 mg Q12HR PO Last administered on 10/15/16 08:32; Start 10/14/16 at 21:00 Enalapril Maleate (Vasotec) 5 mg BID PO Last administered on 10/15/16 08:31; Start 10/14/16 at 21:00 Iohexol (OMNIPAQUE 350 INJ (Cotton Buyer)) 100 ml STK-MED ONCE OTHER ; Start at 15:02; Stop 10/14/16 at 15:06; Status DC A/P Assessment and Plan 86-year-old male with possible history of hypertension, BPH, hyperlipidemia who presented with chest pain STEMI -s/p angioplasty and stent of diffuse disease in the distal right coronary artery. Cardiac catheterization showing moderate to severe two-vessel coronary artery disease including a totally occluded distal right coronary artery, the patient's infarct-related vessel on 10/14/2016. -Being managed by box sorter Dr. Feliciano. -Continue with telemetry. Hypertension/hyperlipidemia/BPH -Home medication resumed. Mild renal insufficiency -Most likely secondary to contrast and hypoperfusion from STEMI. -Continue to monitor. -strict and outs. Avoid nephrotoxins. DVT prophylaxis -Patient already received multiple anticoagulants secondary to STEMI. Discharge Planning Once cleared by box sorter can be discharged home. Anticipate discharge tomorrow. Meena Engel MD Oct 15, 2016 09:52
--- NOTE | 2016-10-15 11:44 | ECHRPT ---
Indication: Cardiomyopathy CONCLUSIONS The left ventricular systolic function is low normal with an estimated ejection fraction in the rang e of 50- 55%. Normal left ventricular size. Wall thickness is normal. Mild basal inferoposterior hypokinesis. Sclerosis of the anterior mitral valve leaflet. Mild mitral annular calcification. Diffuse calcification of the aortic valve. Mild aortic valve regurgitation. No aortic valve stenosis. There is trace tricuspid valve regurgitation. Normal estimated pulmonary pressures. The pulmonary valve is not well visualized. The inferior vena cava was not well visualized. BP: 132 / 64 HR: 69 Rhythm: Atrial flutter MEASUREMENTS (Male / Female) Normal Values Technical Quality:Fair 2D ECHO LV Diastolic Diameter PLAX 3.4 cm 4.2 - 5.9 / 3.9 - 5.3 cm LV Systolic Diameter PLAX 2.5 cm IVS Diastolic Thickness 1.1 cm 0.6 - 1.0 / 0.6 - 0.9 cm LVPW Diastolic Thickness 1.1 cm 0.6 - 1.0 / 0.6 - 0.9 cm LV Relative Wall Thickness 0.7 LVOT Diameter 2.0 cm LA Systolic Diameter LX 3.6 cm 3.0 - 4.0 / 2.7 - 3.8 cm M-MODE Aortic Root Diameter MM 3.8 cm AV Cusp Separation MM 1.3 cm DOPPLER AV Peak Velocity 152.0 cm/s AV Peak Gradient 9.2 mmHg AI Peak Velocity 286.5 cm/s AI Peak Gradient 32.8 mmHg AI Pressure Half Time 660.5 ms LVOT Peak Velocity 118.0 cm/s LVOT Peak Gradient 5.6 mmHg AV Area Cont Eq pk 2.4 cm MV Area PHT 5.1 cm Mitral E Point Velocity 106.0 cm/s Mitral A Point Velocity 142.0 cm/s Mitral E to A Ratio 0.7 TR Peak Velocity 162.0 cm/s TR Peak Gradient 10.5 mmHg PV Peak Velocity 74.8 cm/s PV Peak Gradient 2.2 mmHg FINDINGS LEFT VENTRICLE The left ventricular systolic function is low normal with an estimated ejection fraction in the rang e of 50- 55%. Normal left ventricular size. Wall thickness is normal. Mild basal inferoposterior hypokinesis. RIGHT VENTRICLE Normal right ventricular size and systolic function. LEFT ATRIUM The left atrial size is normal. RIGHT ATRIUM The right atrial size is normal. ATRIAL SEPTUM Normal atrial septal thickness without atrial level shunting by limited color doppler interrogation. AORTA The aortic root and proximal ascending aorta are normal in size on limited imaging. MITRAL VALVE Sclerosis of the anterior mitral valve leaflet. Mild mitral annular calcification. AORTIC VALVE Diffuse calcification of the aortic valve. Mild aortic valve regurgitation. No aortic valve stenosis. TRICUSPID VALVE There is trace tricuspid valve regurgitation. Normal estimated pulmonary pressures. PULMONARY VALVE The pulmonary valve is not well visualized. VESSELS The inferior vena cava was not well visualized. PERICARDIUM No pericardial effusion. Russell Harrison MD (Electronically Signed) Final Date:15 October 2016 11:44
--- NOTE | 2016-10-15 12:46 | EKG ---
Date Performed: 10/15/2016 Time Performed: 05:38:34 PTAGE: 86 years EKG: Sinus rhythm Leftward axis Right bundle branch block Inferior infarct - age undetermined Low QRS voltages in prec ordial leads Abnormal ECG PREVIOUS TRACING : 10/14/2016 11.54 DOCTOR: Mikhail Armstrong Interpretating Date/Time 10/15/2016 12:43:16
--- NOTE | 2016-10-15 13:01 | EKG ---
Date Performed: 10/14/2016 Time Performed: 11:54:27 PTAGE: 86 years EKG: ATRIAL FIBRILLATION INTRAVENTRICULAR CONDUCTION DELAY INFERIOR MYOCARDIAL INFARCTION Inferi or Myocardial injury ACUTE PR INTERPRETATION BASED ON A DEFAULT AGE OF 40 YEARS NO PREVIOUS TRACING DOCTOR: Mikhail Armstrong Interpretating Date/Time 10/15/2016 12:53:08
[2016-10-15] MEDS: ATORVASTATIN 40 MG TAB PO SCH (21:16)
[2016-10-16] VITALS (15 sets, daily range): BP systolic 145–161; BP diastolic 79–86; PULSE 63–84; RESP 16; TEMP 97.5–98.4; O2SAT 94–96
[2016-10-16 08:01] LABS: BICARBONATE 25.8 MEQ/L (21.0-32.0); POTASSIUM 3.7 MEQ/L (3.5-5.1)
[2016-10-16] MEDS: ENALAPRIL MALEATE 5 MG TAB PO SCH (08:59)
[2016-10-16] MEDS: CARVEDILOL 3.125 MG TAB PO SCH (09:00)
[2016-10-16] MEDS: TICAGRELOR 90 MG TAB PO SCH (09:00)
[2016-10-16] MEDS: ASPIRIN 81 MG CHEW TAB PO SCH (09:01)
[2016-10-16] MEDS ORDERED: ASPI81CH25 PO (09:40)
[2016-10-16] MEDS ORDERED: BRIL90TA PO (09:40)
[2016-10-16] MEDS ORDERED: CARV3.125 PO (09:40)
[2016-10-16] MEDS ORDERED: ENAL5TAB PO (09:40)
--- NOTE | 2016-10-16 09:42 | HHI.DCPOC ---
Discharge Care Plan Diagnosis: (1) STEMI (ST elevation myocardial infarction) Goals to Promote Your Health * To prevent worsening of your condition and complications * To maintain your health at the optimal level Directions to Meet Your Goals Take your medications as prescribed Follow your dietary instruction Follow activity as directed Keep your appointments as scheduled Take your immunizations and boosters as scheduled If your symptoms worsen call your PCP, if no PCP go to Urgent Care Center or Emergency Room Smoking is Dangerous to Your Health. Avoid second hand smoke Call the 24-hour hour crisis hotline for domestic abuse at Meena Engel MD Oct 16, 2016 09:42
--- NOTE | 2016-10-16 09:43 | HHI.DS ---
Discharge Summary Admission Date Oct 14, 2016 at 12:01 Discharge Date: Oct 16, 2016 Admitting Diagnosis STEMI (1) STEMI (ST elevation myocardial infarction) ICD Code: I21.3 - ST elevation (STEMI) myocardial infarction of unspecified site Diagnosis: Principal (2) Renal insufficiency ICD Code: N28.9 - Disorder of kidney and ureter, unspecified Diagnosis: Principal Procedures see hospital course Brief History - From Admission This is a 86-year-old male past medical history of hypertension, lipidemia, and BPH who presented with chest pain. Patient stated that he was putting up plywood and then went to the hospital chest pain. Chest pain described as pressure-like, midsternal, nonradiating. Patient was given aspirin nitroglycerin by the EMS and he said that chest pain resolved. In the emergency primary he was found to be in STEMI so STEMI alert called. 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 Patient also had angioplasty and stent of a diffuse disease in the distal right coronary artery. At the moment patient is chest pain-free. CBC/BMP: 10/15/16 0505 10/16/16 0600 Significant Findings Laboratory Tests Test 10/14/16 12:00 10/15/16 05:05 10/16/16 06:00 Monocytes (%) (Auto) 8.5 % (0.0-8.0) 11.2 % (0.0-8.0) Activated Partial Thromboplast Time 23.6 SEC (24.3-30.1) Bedside Blood Urea Nitrogen 29 MG/DL (8-26) Bedside Creatinine 1.5 MG/DL (0.8-1.3) Bedside Glucose 165 MG/DL (60-95) Calcium Level 8.0 MG/DL (8.5-10.1) 8.0 MG/DL (8.5-10.1) Troponin I LESS THAN 0.02 NG/ML B-Type Natriuretic Peptide 104 PG/ML (0-100) Monocytes # (Auto) 1.1 /MM3 (0-0.9) Blood Urea Nitrogen 22 MG/DL (7-18) 20 MG/DL (7-18) Creatinine 1.42 MG/DL (0.60-1.30) Chloride Level 112 MEQ/L (98-107) 108 MEQ/L (98-107) Estimat Glomerular Filtration Rate 47 ML/MIN (>89) 53 ML/MIN (>89) Cholesterol Level 101 MG/DL (120-200) HDL Cholesterol 33.7 MG/DL (40.0-60.0) Imaging Last Impressions Chest X-Ray 10/14/16 1225 Signed Impressions: Service Date/Time: Friday, October 14, 2016 15:53 - CONCLUSION: 1. Mild atelectatic changes in the left perihilar distribution and medial left base. 2. No confluent infiltrate. Waqas Sargent MD PE at Discharge GENERAL: in NAD SKIN: dressing in place in right groin area. no bleeding, swelling or erythema noted. HEAD: Normocephalic. EYES: No scleral icterus. No injection or drainage. NECK: Supple, trachea midline. No JVD or lymphadenopathy. CARDIOVASCULAR: Regular rate and rhythm without murmurs, gallops, or rubs. RESPIRATORY: Breath sounds equal bilaterally. No accessory muscle use. GASTROINTESTINAL: Abdomen soft, non-tender, nondistended. MUSCULOSKELETAL: No cyanosis, or edema. BACK: Nontender without obvious deformity. No CVA tenderness. Pt update on day of discharge f/u For STEMI patient very anxious to go home. Deny any chest pain, shortness of breathing, palpitation, lightheadedness dizziness. No events over telemetry. Hospital Course 86-year-old male with possible history of hypertension, BPH, hyperlipidemia who presented with chest pain STEMI -STEMI alert called and he had emergent cardiac catheterization by Dr. Chavira. -s/p angioplasty and stent of diffuse disease in the distal right coronary artery. Cardiac catheterization showing moderate to severe two-vessel coronary artery disease including a totally occluded distal right coronary artery, the patient's infarct-related vessel on 10/14/2016. -Medical management per executive manager. Hypertension/hyperlipidemia/BPH -Home medication resumed. Mild renal insufficiency -Most likely secondary to contrast and hypoperfusion from STEMI. -Improved with treatment. - Avoid nephrotoxins. Pt Condition on Discharge: Good Discharge Disposition: Discharge Home Discharge Time: <= 30 minutes Discharge Instructions DIET: Follow Instructions for: Heart Healthy Diet Activities you can perform: Regular-No Restrictions, See Additionl Instruction Other Activity Instructions: as directed by Commercial Credit Analyst Follow up Referrals: Cardiology - 1 Week with Maximo Mehta MD PCP Follow-up - 1 Week New Medications: Aspirin (Aspirin Low Strength) 81 Mg Chew 81 MG PO DAILY for heart disease, #30 EA 0 Refills Carvedilol (Coreg) 3.125 Mg Tab 3.125 MG PO Q12HR for heart disease, #60 TAB 0 Refills Enalapril (Enalapril) 5 Mg Tab 5 MG PO BID for hypertension, #60 TAB 0 Refills Ticagrelor (Brilinta) 90 Mg Tab 90 MG PO BID for heart disease, #60 TAB 0 Refills Continued Medications: Allopurinol (Allopurinol) 100 Mg Tab 100 MG PO DAILY for Gout, #30 TAB 0 Refills Cholecalciferol (Vitamin D) 2,000 Unit Tab 2000 UNITS PO DAILY Oxybutynin ER 24 HR (Oxybutynin ER 24 HR) 10 Mg Tab 10 MG PO HS for Overactive Bladder, TAB 0 Refills Simvastatin (Simvastatin) 20 Mg Tab 20 MG PO HS for Cholesterol Management, #30 TAB 0 Refills Tamsulosin (Tamsulosin) 0.4 Mg Cap 0.4 MG PO HS for Manage Prostate Problems, #30 CAP 0 Refills Discontinued Medications: Amlodipine (Amlodipine) 5 Mg Tab 5 MG PO DAILY for Blood Pressure Management, #30 TAB 0 Refills Aspirin (Aspirin) 325 Mg Tab 325 MG PO DAILY, #30 TAB 0 Refills Losartan (Losartan) 25 Mg Tab 25 MG PO DAILY for Blood Pressure Management, #30 TAB 0 Refills Meena Engel MD Oct 16, 2016 09:43
--- NOTE | 2016-10-16 10:19 | PD.CARD.PN ---
Subjective Subjective Remarks no complaints no overnight events Objective Medications Current Medications Medications (Trade) Dose Ordered Sig/Kevin Route Start Time Stop Time Status Last Admin (NS Flush) 2 ml UNSCH PRN IVF 10/14/16 12:00 Nitroglycerin/ Dextrose 250 ml @ 3 mls/hr TITRATE PRN IV 10/14/16 12:00 (NS Flush) 2 ml UNSCH PRN IVF 10/14/16 13:30 (Restoril) 15 mg HS PRN PO 10/14/16 13:30 (Aspirin Chew) 81 mg DAILY PO 10/15/16 09:00 10/16/16 09:01 (Brilinta) 90 mg BID PO 10/14/16 21:00 10/16/16 09:00 (Lipitor) 40 mg HS PO 10/14/16 21:00 10/15/16 21:16 (Coreg) 3.125 mg Q12HR PO 10/14/16 21:00 10/16/16 09:00 (Vasotec) 5 mg BID PO 10/14/16 21:00 10/16/16 08:59 Vital Signs / I&O Vital Signs Date Time Temp Pulse Resp B/P (MAP) Pulse Ox O2 Delivery O2 Flow Rate FiO2 10/16/16 09:00 74 10/16/16 08:00 76 10/16/16 07:45 77 16 145/86 (105) 95 10/16/16 07:00 84 10/16/16 06:00 83 10/16/16 05:00 70 10/16/16 04:00 63 10/16/16 03:50 98.4 79 16 158/79 (105) 96 10/16/16 03:00 76 10/16/16 02:00 75 10/16/16 01:00 84 10/16/16 00:00 98.3 81 16 161/84 (109) 96 10/16/16 00:00 80 10/15/16 23:00 78 10/15/16 22:00 100 10/15/16 21:00 72 10/15/16 20:00 97.7 76 16 155/80 (105) 97 10/15/16 20:00 76 10/15/16 19:00 92 10/15/16 16:00 78 10/15/16 16:00 98.1 72 18 155/78 (103) 95 10/15/16 15:00 70 10/15/16 14:00 72 10/15/16 13:00 76 10/15/16 12:00 78 10/15/16 12:00 98.2 77 18 153/77 (102) 96 10/15/16 11:00 84 I/O 10/15/16 10/15/16 10/15/16 10/16/16 10/16/16 10/16/16 07:00 15:00 23:00 07:00 15:00 23:00 Intake Total 872 ml 620 ml 240 ml Output Total 450 ml 675 ml 400 ml Balance 422 ml -55 ml -160 ml Intake Oral 480 ml 620 ml 240 ml IV Total 392 ml Output Urine Total 450 ml 675 ml 400 ml # Voids 1 2 # Bowel Movements 1 1 2 Physical Exam GENERAL: Well-nourished, well-developed patient. SKIN: Warm and dry. HEAD: Normocephalic. EYES: No scleral icterus. No injection or drainage. NECK: Supple, trachea midline. No JVD or lymphadenopathy. CARDIOVASCULAR: Regular rate and rhythm without murmurs, gallops, or rubs. RESPIRATORY: Breath sounds equal bilaterally. No accessory muscle use. GASTROINTESTINAL: Abdomen soft, non-tender, nondistended. EXTREMITIES: No cyanosis, or edema. NEUROLOGICAL: Awake, alert, and oriented x 3. Non-focal. Laboratory Laboratory Tests Test 10/16/16 06:00 Blood Urea Nitrogen 20 MG/DL Creatinine 1.29 MG/DL Random Glucose 97 MG/DL Calcium Level 8.8 MG/DL Sodium Level 140 MEQ/L Potassium Level 3.7 MEQ/L Chloride Level 108 MEQ/L Carbon Dioxide Level 25.8 MEQ/L Anion Gap 6 MEQ/L Estimat Glomerular Filtration Rate 53 ML/MIN Assessment and Plan Problem List: (1) STEMI (ST elevation myocardial infarction) ICD Codes: I21.3 - ST elevation (STEMI) myocardial infarction of unspecified site Status: Acute Plan: Cont DAPT with ASA and Brilinta Aggressive medical management for CAD F/U with Dr. Mehta upon discharge Stable to discharge home today from CV standpoint Mikhail Armstrong MD Oct 16, 2016 10:19
[2016-11-07] MEDS ORDERED: FISH1200 PO (10:55)
== END 2016-10-16 13:10 | disposition home or self-care (01) | DRG 249 ==
LOC: NEPC 11:52 → NEDA 12:01 → HCIS 13:59
PROVIDERS: ADMIT Family Medicine; ATTEND Family Medicine
PROC: 02703EZ Dilation of Coronary Artery, One Artery with Two Intraluminal Devices, Percutaneous Approach (ICD-10-PCS; principal; 2016-10-14)
PROC: B2111ZZ Fluoroscopy of Multiple Coronary Arteries using Low Osmolar Contrast (ICD-10-PCS; 2016-10-14)
DX: I21.11 ST elevation (STEMI) myocardial infarction involving right coronary artery (principal); I10 Essential (primary) hypertension; E78.5 Hyperlipidemia, unspecified; I25.10 Atherosclerotic heart disease of native coronary artery without angina pectoris; N40.0 Benign prostatic hyperplasia without lower urinary tract symptoms; N28.9 Disorder of kidney and ureter, unspecified; T50.8X5A Adverse effect of diagnostic agents, initial encounter; Y92.238 Other place in hospital as the place of occurrence of the external cause; Z87.891 Personal history of nicotine dependence; Z88.2 Allergy status to sulfonamides
CPT/HCPCS: 71010; 80048; 80061; 82310; 82435; 82550; 82565; 82947; 83735; 83880; 84132; 84295; 84484; 84520; 85002; 85025; 85347; 85610; 85730; 92941; 93005; 93306; 93454; C1725; C1769; C1874; C1887; C1893; J0461; J1644; J2250; J3010; J3246; J7030; Q9967

== ENCOUNTER 2016-11-06 03:50 | Emergency (ER) | payer MEDICARE, OTHER ==
[~2016-11-06] VITALS: Ht 172.7 cm; Wt 80.0 kg
[~2016-11-06 03:50] MED LIST changes: -AMLO5TAB2 PO; -ASPI325T PO; +ASPI81CH25 PO; +BRIL90TA PO; -CALC600T13 PO; +CARV3.125 PO; +ENAL5TAB PO; -LEVA250T PO; -LOSA25TA PO; -MULT1TAB84 PO; -OMEG600C2 PO; -VITA500T PO
[2016-11-06 03:52] VITALS: BP 178/79; PULSE 90; RESP 16; TEMP 97.9; O2SAT 95
[2016-11-06] MEDS ORDERED: VITA250C3 CHEW (04:12)
[2016-11-06] MEDS ORDERED: fish oil PO (04:12)
[2016-11-06] MEDS ORDERED: MULT1TAB46 PO (04:12)
[2016-11-06 04:17] VITALS: BP 168/79; PULSE 80; O2SAT 94
[2016-11-06] MEDS ORDERED: SILVER NITR/POTASSIUM NITRATE APPLICATORS TOPICAL ONE (05:15)
--- NOTE | 2016-11-06 06:04 | PD ---
HPI Chief Complaint: Bleeding Time Seen by Provider: 05:11 Travel History International Travel<30 days: No Contact w/Intl Traveler<30days: No Traveled to known affect area: No History of Present Illness HPI 86-year-old male presents to the emergency department by private transportation for complaint of recurrent epistaxis. Patient is followed by Dr. Funez. This episode of nose bleeding has lasted longer than usual. Patient with recent diagnosis of myocardial infarction with cardiac catheterization stent placement and is on Brilinta. Patient denies other concerns or complaints. Patient has been taking medications as prescribed. No near-syncope or syncope. No chest pain or shortness of breath. No nausea or vomiting. PFSH Past Medical History Narrative Medical Hypertension dyslipidemia myocardial infarction recurrent epistaxis; appendectomy no tobacco use nursing notes reviewed Hx Anticoagulant Therapy: Yes (325 MG. ASA DAILY) Arthritis: No Asthma: No Anxiety: No Depression: No Cardiac Catheterization: No Cardiovascular Problems: Yes (heart attack 2 stents placed 10/14/16,dr maldonado cardio ) High Cholesterol: Yes Chest Pain: No Congestive Heart Failure: No COPD: No Cerebrovascular Accident: No Diabetes: No Diminished Hearing: No Endocrine: No GERD: No Genitourinary: No Hiatal Hernia: No Hypertension: Yes Immune Disorder: No Kidney Stones: No Musculoskeletal: No Neurologic: No Psychiatric: No Reproductive: No Respiratory: No Immunizations Current: Yes Migraines: No Myocardial Infarction: No Renal Failure: No Seizures: No Sleep Apnea: No Ulcer: No Tetanus Vaccination: < 5 Years Influenza Vaccination: Yes Past Surgical History Abdominal Surgery: Yes (ADHESION REMOVAL) Appendectomy: Yes Arteriovenous Shunt: No Cardiac Surgery: No Cholecystectomy: Yes Coronary Artery Bypass Graft: No Ear Surgery: Yes (CATARACT REMOVAL X2) Endocrine Surgery: No Eye Surgery: No Genitourinary Surgery: No Gynecologic Surgery: No Insulin Pump: No Oral Surgery: No Thoracic Surgery: No Other Surgery: Yes (HERNIA 1999; TURP 1998) Family History Family Myocardial Infarction: Yes (father) Social History Alcohol Use: No Tobacco Use: No (FORMER) Substance Use: No Allergies-Medications (Allergen,Severity, Reaction): Coded Allergies: Sulfa (Sulfonamide Antibiotics) (Unverified Allergy, Severe, 11/06/16) Reported Meds & Prescriptions Reported Meds & Active Scripts Active Aspirin Low Strength (Aspirin) 81 Mg Chew 81 Mg PO DAILY Enalapril (Enalapril Maleate) 5 Mg Tab 5 Mg PO BID Coreg (Carvedilol) 3.125 Mg Tab 3.125 Mg PO Q12HR Brilinta (Ticagrelor) 90 Mg Tab 90 Mg PO BID Reported [fish oil] 1,200 Mg PO DAILY Vitamin C (Ascorbic Acid) 250 Mg Chew 250 Mg CHEW DAILY Multi Vitamin Daily (Multiple Vitamin) 1 Tab Tab PO DAILY Oxybutynin ER 24 HR (Oxybutynin Chloride) 10 Mg Tab 10 Mg PO HS Vitamin D (Cholecalciferol) 2,000 Unit Tab 2,000 Units PO DAILY Allopurinol 100 Mg Tab 100 Mg PO DAILY Tamsulosin (Tamsulosin HCl) 0.4 Mg Cap 0.4 Mg PO HS Simvastatin 20 Mg Tab 20 Mg PO HS Review of Systems Except as stated in HPI: all other systems reviewed are Neg General / Constitutional: No: Fever, Chills Eyes: No: Visual changes HENT: Positive: Nosebleed, No: Vertigo, Sore Throat Cardiovascular: No: Chest Pain or Discomfort Respiratory: No: Shortness of Breath Gastrointestinal: No: Nausea, Vomiting, Abdominal Pain Genitourinary: No: Flank Pain Musculoskeletal: No: Myalgias Skin: No Rash Neurologic: No: Weakness, Dizziness, Syncope Psychiatric: Positive: Anxiety Hematologic/Lymphatic: No: Easy Bruising Physical Exam Narrative GENERAL: Well-developed well-nourished male in no acute distress no respiratory distress SKIN: Warm and dry. HEAD: Normocephalic. EYES: No scleral icterus. No injection or drainage. ENT mucous membranes moist ; airway is patent; right naris with scant amount of clot and fresh blood noted no septal hematoma NECK: Supple, trachea midline. No JVD or lymphadenopathy. CARDIOVASCULAR: Regular rate and rhythm without murmurs, gallops, or rubs. RESPIRATORY: Breath sounds equal bilaterally. No accessory muscle use. GASTROINTESTINAL: Abdomen soft, non-tender, nondistended. Data Data Last Documented VS Vital Signs Date Time Temp Pulse Resp B/P (MAP) Pulse Ox O2 Delivery O2 Flow Rate FiO2 11/06/16 06:46 11/06/16 06:35 78 18 96 Room Air 11/06/16 03:52 97.9 Orders Orders Silver Nitrate Applicators (Silver Nitra (11/06/16 05:15) Complete Blood Count With Diff (11/06/16 06:04) Enalapril (Vasotec) (11/06/16 06:45) Labs Laboratory Tests Test 11/06/16 06:01 White Blood Count 11.1 TH/MM3 Red Blood Count 4.87 MIL/MM3 Hemoglobin 14.2 GM/DL Hematocrit 43.7 % Mean Corpuscular Volume 89.8 FL Mean Corpuscular Hemoglobin 29.1 PG Mean Corpuscular Hemoglobin Concent 32.4 % Red Cell Distribution Width 14.4 % Platelet Count 274 TH/MM3 Mean Platelet Volume 10.9 FL Neutrophils (%) (Auto) 61.4 % Lymphocytes (%) (Auto) 19.5 % Monocytes (%) (Auto) 9.3 % Eosinophils (%) (Auto) 8.6 % Basophils (%) (Auto) 1.2 % Neutrophils # (Auto) 6.8 TH/MM3 Lymphocytes # (Auto) 2.2 TH/MM3 Monocytes # (Auto) 1.0 TH/MM3 Eosinophils # (Auto) 1.0 TH/MM3 Basophils # (Auto) 0.1 TH/MM3 CBC Comment DIFF FINAL Differential Comment MDM Medical Decision Making Medical Screen Exam Complete: Yes Emergency Medical Condition: Yes Medical Record Reviewed: Yes Differential Diagnosis Epistaxis, coagulopathy, anemia, uncontrolled hypertension Narrative Course Patient with Latoya of gauze in the right nostril this is removed and some pooling of blood noted in the floor of the right nostril also small area of hyperemia and bleeding noted to the septum. Silver nitrate was applied to the area of bruising to the nasal septum in the right nostril; ongoing bleeding therefore 7.5 Rhino Rocket inserted and inflated to 5 cc of air with good hemostasis. Patient's blood pressure mildly elevated was given his morning dose of enalapril 5 mg Patient ambulatory about the emergency department without recurrent epistaxis and hemoglobin stable Patient found to be stable for outpatient management and follow-up with his ENT Diagnosis Primary Impression: Epistaxis Referrals: Jeremy Funez MD 1 day Call office to schedule follow-up appointment Patient Instructions: General Instructions Additional Instructions: Follow-up with your urine is and throat specialist call office to schedule appointment Continue chronic medications as chronically prescribed Return to the emergency department for any concerns or change in condition Disposition: 01 DISCHARGE HOME Condition: Stable Lindsay Nguyen MD Nov 06, 2016 06:04
[2016-11-06 06:22] LABS: AUTOMATED NEUTROPHIL # 6.8 TH/MM3 (1.8-7.7); BASOPHIL # 0.1 TH/MM3 (0-0.2); BASOPHIL % 1.2 % (0.0-2.0); EOSINOPHIL % 8.6 % (0.0-4.0); HEMATOCRIT 43.7 % (39.0-51.0); HEMO FLAGS DIFF FINAL; LYMPH % 19.5 % (9.0-44.0); LYMPHOCYTE # 2.2 TH/MM3 (1.0-4.8); MEAN CELL VOLUME 89.8 FL (80.0-100.0); MEAN CORPUSCULAR HEMOGLOBIN 29.1 PG (27.0-34.0); MEAN CORPUSCULAR HGB CONC 32.4 % (32.0-36.0); MONO % 9.3 % (0.0-8.0); NEUT % 61.4 % (16.0-70.0); PLATELET COUNT 274 TH/MM3 (150-450); RED BLOOD COUNT 4.87 MIL/MM3 (4.50-5.90); RED CELL DISTRIBUTION WIDTH 14.4 % (11.6-17.2); WHITE BLOOD COUNT 11.1 TH/MM3 (4.0-11.0)
[2016-11-06 06:35] VITALS: PULSE 78; RESP 18; O2SAT 96
[2016-11-06] MEDS ORDERED: ENALAPRIL MALEATE 5 MG TAB PO ONE (06:45)
[2016-11-07] MEDS ORDERED: FISH1200 PO (10:55)
== END 2016-11-06 06:46 | disposition home or self-care (01) ==
LOC: NEPC 03:50
DX: R04.0 Epistaxis (principal); I10 Essential (primary) hypertension; E78.5 Hyperlipidemia, unspecified; Z79.82 Long term (current) use of aspirin; I25.10 Atherosclerotic heart disease of native coronary artery without angina pectoris; Z79.01 Long term (current) use of anticoagulants
CPT/HCPCS: 30901; 85025

== ENCOUNTER 2017-04-22 10:16 | Emergency (ER) | payer OTHER, MEDICARE ==
[~2017-04-22] VITALS: Ht 172.7 cm; Wt 71.0 kg
[~2017-04-22 10:16] MED LIST changes: +FISH1200 PO; +MULT1TAB46 PO; +VITA250C3 CHEW
[2017-04-22 10:21] VITALS: BP 138/76; PULSE 67; RESP 16; TEMP 97.3; O2SAT 98
--- NOTE | 2017-04-22 12:25 | PD ---
HPI Chief Complaint: Dizziness Time Seen by Provider: 12:14 Travel History International Travel<30 days: No Contact w/Intl Traveler<30days: No Traveled to known affect area: No History of Present Illness HPI This patient reports that 4 days ago he fell and hit the left side of his face and the left side of his ribs. Chief complaint today is rib pain. He is wondering if he broke his ribs. He is not short of breath. He says that his cardiac medications commonly make him dizzy. 4 days ago he was feeling dizzy and fell. He is not having headache or facial pain or neck pain now. He got significant bruising from the fall but it is improved and he is not hurting. Some severity was moderate. No alleviating factors. Bruising exacerbated by his blood thinner medications. Patient is hypertensive in excess of 200 systolic. He has some dizziness and lightheadedness without syncope and no vertigo PFSH Past Medical History Hx Anticoagulant Therapy: Yes (asa 81mg twice a day) Arthritis: No Asthma: No Anxiety: No Depression: No Cardiac Catheterization: No Cardiovascular Problems: Yes (htn on meds, MS with 2 stents) High Cholesterol: Yes Chest Pain: No Congestive Heart Failure: No COPD: No Cerebrovascular Accident: No Diabetes: No Diminished Hearing: No Endocrine: No GERD: No Genitourinary: No Hiatal Hernia: No Hypertension: Yes Immune Disorder: No Kidney Stones: No Musculoskeletal: No Neurologic: No Psychiatric: No Reproductive: No Respiratory: No Immunizations Current: Yes Migraines: No Myocardial Infarction: No Renal Failure: No Seizures: No Sleep Apnea: No Ulcer: No Past Surgical History Abdominal Surgery: Yes (ADHESION REMOVAL) Appendectomy: Yes Arteriovenous Shunt: No Cardiac Surgery: No Cholecystectomy: Yes Coronary Artery Bypass Graft: No Ear Surgery: Yes (CATARACT REMOVAL X2) Endocrine Surgery: No Eye Surgery: No Genitourinary Surgery: No Gynecologic Surgery: No Insulin Pump: No Oral Surgery: No Thoracic Surgery: No Other Surgery: Yes (HERNIA 1999; TURP 1998) Social History Alcohol Use: No Tobacco Use: No (FORMER) Substance Use: No Allergies-Medications (Allergen,Severity, Reaction): Coded Allergies: Sulfa (Sulfonamide Antibiotics) (Unverified Allergy, Severe, 04/22/17) Reported Meds & Prescriptions Reported Meds & Active Scripts Active Enalapril (Enalapril Maleate) 5 Mg Tab 5 Mg PO BID Coreg (Carvedilol) 3.125 Mg Tab 3.125 Mg PO Q12HR Brilinta (Ticagrelor) 90 Mg Tab 90 Mg PO BID Reported Finasteride 5 Mg Tab 5 Mg PO DAILY Do not crush. Ditropan (Oxybutynin Chloride) 5 Mg Tab 5 Mg PO Q8HR Aspirin Low Dose (Aspirin) 81 Mg Chew 81 Mg CHEW BID Vitamin C (Ascorbic Acid) 250 Mg Chew 250 Mg CHEW DAILY Multi Vitamin Daily (Multiple Vitamin) 1 Tab Tab PO DAILY Vitamin D (Cholecalciferol) 2,000 Unit Tab 2,000 Units PO DAILY Allopurinol 100 Mg Tab 100 Mg PO DAILY Simvastatin 20 Mg Tab 20 Mg PO HS Review of Systems General / Constitutional: No: Fever Eyes: No: Visual changes HENT: Positive: Lightheadedness, No: Headaches Cardiovascular: Positive: Chest Pain or Discomfort Respiratory: No: Shortness of Breath Gastrointestinal: No: Abdominal Pain Genitourinary: No: Dysuria Musculoskeletal: No: Pain Skin: No Rash Neurologic: Positive: Dizziness, No: Weakness Psychiatric: No: Depression Endocrine: No: Polydipsia Hematologic/Lymphatic: No: Easy Bruising Physical Exam Narrative GENERAL: Well-nourished, well-developed patient in no apparent distress. SKIN: Focused skin assessment reveals no rash and nodules. Skin is Warm and dry. HEAD: He has some old bruising on the left zoroastrianism area but no tenderness. There is some ecchymosis to the left mandible without tenderness. Normocephalic. EYES: Pupils equal and round. No scleral icterus. No injection or drainage. ENT: No nasal bleeding or discharge. Mucous membranes pink and moist. NECK: Trachea midline. No JVD. No midline tenderness CARDIOVASCULAR: Regular rate and rhythm. No murmur appreciated. RESPIRATORY: No accessory muscle use. Clear to auscultation. Breath sounds equal bilaterally. GASTROINTESTINAL: Abdomen soft, non-tender, nondistended. Hepatic and splenic margins not palpable. MUSCULOSKELETAL: No obvious deformities. No clubbing. No cyanosis. No edema. Has some left low rib tenderness without crepitus or bruising. NEUROLOGICAL: Awake and alert. No obvious cranial nerve deficits. Motor grossly within normal limits. Normal speech. PSYCHIATRIC: Appropriate mood and affect; insight and judgment normal. Data Data Last Documented VS Vital Signs Date Time Temp Pulse Resp B/P (MAP) Pulse Ox O2 Delivery O2 Flow Rate FiO2 04/22/17 15:02 70 16 192/83 (119) 98 Room Air 04/22/17 10:21 97.3 Orders Orders Chest, Single Ap (04/22/17 ) Clonidine (Catapres) (04/22/17 12:30) Iv Access Insert/Monitor (04/22/17 12:25) Complete Blood Count With Diff (04/22/17 12:25) Basic Metabolic Panel (Bmp) (04/22/17 12:25) Residential Advisor / Telemetry [id number] (04/22/17 12:25) Electrocardiogram (04/22/17 ) Nifedipine (Procardia) (04/22/17 14:15) Labs Laboratory Tests Test 04/22/17 12:41 White Blood Count 8.8 TH/MM3 Red Blood Count 4.62 MIL/MM3 Hemoglobin 13.3 GM/DL Hematocrit 41.5 % Mean Corpuscular Volume 89.9 FL Mean Corpuscular Hemoglobin 28.8 PG Mean Corpuscular Hemoglobin Concent 32.0 % Red Cell Distribution Width 14.4 % Platelet Count 219 TH/MM3 Mean Platelet Volume 9.5 FL Neutrophils (%) (Auto) 67.4 % Lymphocytes (%) (Auto) 20.2 % Monocytes (%) (Auto) 7.3 % Eosinophils (%) (Auto) 4.4 % Basophils (%) (Auto) 0.7 % Neutrophils # (Auto) 5.9 TH/MM3 Lymphocytes # (Auto) 1.8 TH/MM3 Monocytes # (Auto) 0.6 TH/MM3 Eosinophils # (Auto) 0.4 TH/MM3 Basophils # (Auto) 0.1 TH/MM3 CBC Comment DIFF FINAL Differential Comment Blood Urea Nitrogen 31 MG/DL Creatinine 1.90 MG/DL Random Glucose 116 MG/DL Calcium Level 8.4 MG/DL Sodium Level 141 MEQ/L Potassium Level 4.4 MEQ/L Chloride Level 108 MEQ/L Carbon Dioxide Level 27.3 MEQ/L Anion Gap 6 MEQ/L Estimat Glomerular Filtration Rate 34 ML/MIN MDM Medical Decision Making Medical Screen Exam Complete: Yes Emergency Medical Condition: Yes Medical Record Reviewed: Yes Differential Diagnosis Rib fracture, pneumothorax, contusion Narrative Course I have reviewed the patient's electronic medical record. Patient had head and facial injury 4 days ago but his bruising is improving and his pain is resolved. He is neurologically intact I don't feel needs emergent and face or neck imaging I did order chest x-ray I gave him a dose of clonidine for accelerated hypertension and will reassess He has been having some ongoing dizziness and lightheadedness. I've ordered some tests to evaluate including EKG telemetry and labs Blood pressure still remained high. He gave him a dose of Procardia. Currently is 182 systolic. Patient feels improved. X-rays negative for fracture or pneumothorax Labs reviewed. Minor abnormalities are noted Stable for outpatient follow-up. He is to check and record his blood pressure frequently. He has a cuff at home. He should discuss his symptoms with his physician. From an injury standpoint he should heal Diagnosis Primary Impression: Traumatic ecchymosis of multiple sites Additional Impressions: Accelerated hypertension Contusion of rib on left side Qualified Codes: S20.212A - Contusion of left front wall of thorax, initial encounter Dizziness Additional Instructions: Check and record blood pressure daily The patient was advised to follow up with their physician and return if they worsen. Med/Other Pt SpecificInfo: Other Disposition: 01 DISCHARGE HOME Condition: Stable Vishnu Hills MD Apr 22, 2017 12:25
[2017-04-22] MEDS ORDERED: cloNIDine HCL 0.2 MG TAB PO ONE (12:30)
[2017-04-22] MEDS ORDERED: OXYB5TAB8 PO (12:32)
[2017-04-22] MEDS ORDERED: FINA5TAB2 PO (12:32)
[2017-04-22] MEDS ORDERED: ASPI81CH6 CHEW (12:32)
--- NOTE | 2017-04-22 12:39 | RADRPT ---
EXAM DATE/TIME: 04/22/2017 12:25 [facility] COMPARISON: CHEST SINGLE AP, October 14, 2016, 15:53. INDICATIONS : Fall, complains of left side rib pain. MEDICAL HISTORY : Hypertension. Myocardial infarction. SURGICAL HISTORY : Appendectomy. Cholecystectomy. Cardiac stents. ENCOUNTER: Initial ACUITY: 4 - 6 days PAIN SCORE: 6/10 LOCATION: Left chest ribs FINDINGS: A single view of the chest demonstrates minimal left basilar subsegmental atelectasis. The cardiomedi astinal contours are unremarkable. Osseous structures are intact. No pneumothorax. CONCLUSION: Minimal left basilar subsegmental atelectasis. Jag Masterson MD on April 22, 2017 at 12:37 Board Certified Radiologist. This report was verified electronically.
[2017-04-22 12:54] LABS: AUTOMATED NEUTROPHIL # 5.9 TH/MM3 (1.8-7.7); BASOPHIL # 0.1 TH/MM3 (0-0.2); BASOPHIL % 0.7 % (0.0-2.0); EOSINOPHIL # 0.4 TH/MM3 (0-0.4); EOSINOPHIL % 4.4 % (0.0-4.0); HEMATOCRIT 41.5 % (39.0-51.0); HEMOGLOBIN 13.3 GM/DL (13.0-17.0); LYMPH % 20.2 % (9.0-44.0); LYMPHOCYTE # 1.8 TH/MM3 (1.0-4.8); MEAN CELL VOLUME 89.9 FL (80.0-100.0); MEAN CORPUSCULAR HEMOGLOBIN 28.8 PG (27.0-34.0); MEAN PLATELET VOLUME 9.5 FL (7.0-11.0); MONO % 7.3 % (0.0-8.0); MONOCYTE # 0.6 TH/MM3 (0-0.9); NEUT % 67.4 % (16.0-70.0); PLATELET COUNT 219 TH/MM3 (150-450); RED BLOOD COUNT 4.62 MIL/MM3 (4.50-5.90); RED CELL DISTRIBUTION WIDTH 14.4 % (11.6-17.2); WHITE BLOOD COUNT 8.8 TH/MM3 (4.0-11.0)
[2017-04-22 13:29] LABS: CALCIUM 8.4 MG/DL (8.5-10.1)
[2017-04-22 13:30] LABS: BICARBONATE 27.3 MEQ/L (21.0-32.0)
[2017-04-22 13:33] LABS: CREATININE 1.9 MG/DL (0.60-1.30)
[2017-04-22 13:55] VITALS: BP 219/80; PULSE 77; RESP 18; O2SAT 100
[2017-04-22] MEDS ORDERED: NIFEdipine 20 MG CAP PO ONE (14:15)
[2017-04-22 15:02] VITALS: BP 192/83; PULSE 70; RESP 16; O2SAT 98
--- NOTE | 2017-04-23 11:22 | EKG ---
Date Performed: 04/22/2017 Time Performed: 12:42:25 PTAGE: 87 years EKG: Sinus rhythm RIGHT BUNDLE BRANCH BLOCK ABNORMAL ECG PREVIOUS TRACING : 10/15/2016 05.38 Since the previous tracing, no significant change noted DOCTOR: Armand Tapia Interpretating Date/Time 04/23/2017 11:21:03
== END 2017-04-22 15:56 | disposition home or self-care (01) ==
LOC: PHED 10:16
DX: S20.212A Contusion of left front wall of thorax, initial encounter (principal); S00.83XA Contusion of other part of head, initial encounter; I10 Essential (primary) hypertension; R42 Dizziness and giddiness; E78.00 Pure hypercholesterolemia, unspecified; I25.2 Old myocardial infarction; R94.31 Abnormal electrocardiogram [ECG] [EKG]; W18.30XA Fall on same level, unspecified, initial encounter; Z88.2 Allergy status to sulfonamides; Z79.82 Long term (current) use of aspirin; Z79.01 Long term (current) use of anticoagulants
CPT/HCPCS: 71045; 80048; 85025; 93005; 99285

== ENCOUNTER 2017-04-26 15:35 | Emergency (ER) | payer OTHER, MEDICARE ==
[~2017-04-26] VITALS: Ht 172.7 cm; Wt 72.3 kg
[~2017-04-26 15:35] MED LIST changes: +ASPI81CH6 CHEW; +FINA5TAB2 PO; +OXYB5TAB8 PO
[2017-04-26 15:48] VITALS: BP 196/81; PULSE 61; RESP 18; TEMP 97.9; O2SAT 98
--- NOTE | 2017-04-26 16:42 | PD ---
HPI Chief Complaint: Hypertension Time Seen by Provider: 16:41 Travel History International Travel<30 days: No Contact w/Intl Traveler<30days: No Traveled to known affect area: No History of Present Illness HPI Patient is here complaining of dizzy spells that have been ongoing for the past 2 weeks, however over the past 2 days or so he has started to get worse. He reached out to his paper sample clerk and to his primary care both of whom said go to the ER because he had high blood pressure. Patient's high blood pressure here is registering 198 systolic to 213 systolic. Patient denies any associated factors such as headache, visual changes, lateralizing weakness, chest pain, back pain, incontinence of urine or stool. Patient has recently had his medications altered and adjusted to address hypertension. Allergies to sulfa Past medical history significant for cataract removal, appendectomy TURP hernia repair PFSH Past Medical History Hx Anticoagulant Therapy: Yes (asa 81mg twice a day) Arthritis: No Asthma: No Anxiety: No Depression: No Heart Rhythm Problems: No (2 stents placed 10/14/16) Cardiac Catheterization: No Cardiovascular Problems: Yes High Cholesterol: Yes Chest Pain: No Congestive Heart Failure: No COPD: No Cerebrovascular Accident: No Diabetes: No Diminished Hearing: No Endocrine: No GERD: No Genitourinary: No Hiatal Hernia: No Hypertension: Yes Immune Disorder: No Kidney Stones: No Musculoskeletal: No Neurologic: No Psychiatric: No Reproductive: No Respiratory: No Immunizations Current: Yes Migraines: No Myocardial Infarction: No Renal Failure: No Seizures: No Sleep Apnea: No Ulcer: No Past Surgical History Abdominal Surgery: Yes (ADHESION REMOVAL) Appendectomy: Yes Arteriovenous Shunt: No Cardiac Surgery: No Cholecystectomy: Yes Coronary Artery Bypass Graft: No Ear Surgery: Yes (CATARACT REMOVAL X2) Endocrine Surgery: No Eye Surgery: No Genitourinary Surgery: No Gynecologic Surgery: No Insulin Pump: No Oral Surgery: No Thoracic Surgery: No Other Surgery: Yes (HERNIA 1999; TURP 1998) Social History Alcohol Use: No Tobacco Use: No (FORMER) Substance Use: No Allergies-Medications (Allergen,Severity, Reaction): Coded Allergies: Sulfa (Sulfonamide Antibiotics) (Unverified Allergy, Severe, 04/26/17) Reported Meds & Prescriptions Reported Meds & Active Scripts Active Catapres (Clonidine) 0.1 Mg Tab 0.1 Mg PO ONCE Augmentin (Amoxicillin-Clavulanate) 875-125 Mg Tab 1 Tab PO BID 10 Days Enalapril (Enalapril Maleate) 5 Mg Tab 5 Mg PO BID Coreg (Carvedilol) 3.125 Mg Tab 3.125 Mg PO Q12HR Brilinta (Ticagrelor) 90 Mg Tab 90 Mg PO BID Reported Finasteride 5 Mg Tab 5 Mg PO DAILY Do not crush. Ditropan (Oxybutynin Chloride) 5 Mg Tab 5 Mg PO Q8HR Aspirin Low Dose (Aspirin) 81 Mg Chew 81 Mg CHEW BID Vitamin C (Ascorbic Acid) 250 Mg Chew 250 Mg CHEW DAILY Multi Vitamin Daily (Multiple Vitamin) 1 Tab Tab PO DAILY Vitamin D (Cholecalciferol) 2,000 Unit Tab 2,000 Units PO DAILY Allopurinol 100 Mg Tab 100 Mg PO DAILY Simvastatin 20 Mg Tab 20 Mg PO HS Review of Systems General / Constitutional: No: Fever Eyes: No: Visual changes HENT: No: Headaches Cardiovascular: No: Chest Pain or Discomfort Respiratory: No: Shortness of Breath Gastrointestinal: No: Abdominal Pain Genitourinary: No: Dysuria Musculoskeletal: No: Pain Skin: No Rash Neurologic: Positive: Dizziness Psychiatric: No: Depression Endocrine: No: Polydipsia Hematologic/Lymphatic: No: Easy Bruising Physical Exam Narrative GENERAL: SKIN: Warm and dry. HEAD: Atraumatic. Normocephalic. EYES: Pupils equal and round. No scleral icterus. No injection or drainage. ENT: No nasal bleeding or discharge. Mucous membranes pink and moist. NECK: Trachea midline. No JVD. CARDIOVASCULAR: Regular rate and rhythm. RESPIRATORY: No accessory muscle use. Clear to auscultation. Breath sounds equal bilaterally. GASTROINTESTINAL: Abdomen soft, non-tender, nondistended. MUSCULOSKELETAL: Extremities without clubbing, cyanosis, or edema. No obvious deformities. NEUROLOGICAL: Awake and alert. No obvious cranial nerve deficits. Motor grossly within normal limits. Five out of 5 muscle strength in the arms and legs. Normal speech. PSYCHIATRIC: Appropriate mood and affect; insight and judgment normal. Data Data Last Documented VS Vital Signs Date Time Temp Pulse Resp B/P (MAP) Pulse Ox O2 Delivery O2 Flow Rate FiO2 04/26/17 18:24 88 18 174/90 (118) 97 Room Air 04/26/17 15:48 97.9 Orders Orders Electrocardiogram (04/26/17 16:50) B-Type Natriuretic Peptide (04/26/17 16:50) Ckmb (Isoenzyme) Profile (04/26/17 16:50) Complete Blood Count With Diff (04/26/17 16:50) Comprehensive Metabolic Panel (04/26/17 16:50) Prothrombin Time / Inr (Pt) (04/26/17 16:50) Act Partial Throm Time (Ptt) (04/26/17 16:50) Troponin I (04/26/17 16:50) Lipase (04/26/17 16:50) Chest, Single Ap (04/26/17 16:50) Ecg Monitoring (04/26/17 16:50) Bilateral Bp Monitoring (04/26/17 16:50) Iv Access Insert/Monitor (04/26/17 16:50) Oximetry (04/26/17 16:50) Sodium Chloride 0.9% Flush (Ns Flush) (04/26/17 17:00) Hydralazine Inj (Apresoline Inj) (04/26/17 17:00) Mra Brain W/O Contrast (Cow) (04/26/17 ) CKMB (04/26/17 17:10) CKMB% (04/26/17 17:10) Mri Brain W&W/O Contrast (04/26/17 ) Gadobenate Dimeglimine Pf Inj (Multihanc (04/26/17 18:03) Levofloxacin (Levaquin) (04/26/17 18:30) Ed Discharge Order (04/26/17 19:06) Labs Laboratory Tests Test 04/26/17 17:10 White Blood Count 8.2 TH/MM3 Red Blood Count 4.42 MIL/MM3 Hemoglobin 13.1 GM/DL Hematocrit 40.0 % Mean Corpuscular Volume 90.5 FL Mean Corpuscular Hemoglobin 29.6 PG Mean Corpuscular Hemoglobin Concent 32.7 % Red Cell Distribution Width 14.0 % Platelet Count 203 TH/MM3 Mean Platelet Volume 9.3 FL Neutrophils (%) (Auto) 64.3 % Lymphocytes (%) (Auto) 22.7 % Monocytes (%) (Auto) 4.6 % Eosinophils (%) (Auto) 7.5 % Basophils (%) (Auto) 0.9 % Neutrophils # (Auto) 5.2 TH/MM3 Lymphocytes # (Auto) 1.9 TH/MM3 Monocytes # (Auto) 0.4 TH/MM3 Eosinophils # (Auto) 0.6 TH/MM3 Basophils # (Auto) 0.1 TH/MM3 CBC Comment DIFF FINAL Differential Comment Prothrombin Time 10.6 SEC Prothromb Time International Ratio 1.0 RATIO Activated Partial Thromboplast Time 23.1 SEC Blood Urea Nitrogen 34 MG/DL Creatinine 1.80 MG/DL Random Glucose 109 MG/DL Total Protein 7.4 GM/DL Albumin 3.5 GM/DL Calcium Level 8.6 MG/DL Alkaline Phosphatase 80 U/L Aspartate Amino Transf (AST/SGOT) 30 U/L Alanine Aminotransferase (ALT/SGPT) 12 U/L Total Bilirubin 0.5 MG/DL Sodium Level 141 MEQ/L Potassium Level 5.1 MEQ/L Chloride Level 109 MEQ/L Carbon Dioxide Level 25.9 MEQ/L Anion Gap 6 MEQ/L Estimat Glomerular Filtration Rate 36 ML/MIN Total Creatine Kinase 131 U/L Creatine Kinase MB 1.6 NG/ML Troponin I LESS THAN 0.02 NG/ML B-Type Natriuretic Peptide 183 PG/ML Lipase 66 U/L [facility] Medical Decision Making Medical Screen Exam Complete: Yes Emergency Medical Condition: Yes Medical Record Reviewed: Yes Interpretation(s) EKG shows sinus bradycardia, 59 bpm, pattern consistent with an QRS length and consistent with right bundle branch block, Differential Diagnosis Hypertensive urgency versus brain bleed versus hypertensive emergency Narrative Course Coagulation profile is within normal limits CBC shows no leukocytosis no anemia normal platelet count and no left shift. CMP shows normal electrolytes, prerenal azotemia possibly BUN of 34 over creatinine of 1.8 with a 2 GFR of 36 Normal liver function tests normal pancreatic enzyme. Negative cardiac enzymes Chest x-ray read by radiologist shows a mild left lower lobe infiltrate.. Of note this likely occurred from his recent fall where he landed on his left costal region, no rib fractures, however it definitely sets up the possibility of secondary pneumonia development MRI MRA of brain including [place] does not show any evidence of an aneurysm, or any bleeding. 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 There are also moderate to severe chronic ischemic changes in the periventricular white matter. Patient was ambulatory, tolerated p.o., and was advised to follow-up with his primary care as well as follow-up with a neurologist and his paper sample clerk for further blood pressure control Critical Care Narrative CRITICAL CARE NOTE: With evaluation of the patient, labs, EKG, receipt of radiologic studies, administration of medications, reevaluation the patient and discussion of the patient with the admitting physicians, the total critical care time was [60] minutes. Time to perform other separately billable procedures was not included in the critical care time. Diagnosis Primary Impression: Accelerated hypertension Additional Impression: Left lower lobe pneumonia Qualified Codes: J18.1 - Lobar pneumonia, unspecified organism Referrals: Lianna Raman MD FOR FURTHER CARE OF YOUR MRI FINDING Patient Instructions: Community Acquired Pneumonia (DC), General Instructions, Hypertension (DC) Scripts Clonidine (Catapres) 0.1 Mg Tab 0.1 MG PO ONCE for Blood Pressure Management, #8 TAB 0 Refills Prov: Baljeet Duarte MD 04/26/17 Amoxicillin-Clavulanate (Augmentin) 875-125 Mg Tab 1 TAB PO BID for Infection for 10 Days, #20 TAB 0 Refills Prov: Baljeet Duarte MD 04/26/17 Disposition: 01 DISCHARGE HOME Condition: Stable Baljeet Duarte MD Apr 26, 2017 16:42
[2017-04-26 16:58] VITALS: RESP 18; O2SAT 97
[2017-04-26] MEDS ORDERED: hydrALAZINE HCL 20 MG/ML VIAL IV PUSH ONE (17:00)
[2017-04-26] MEDS ORDERED: SODIUM CHLORIDE 0.9% FLUSH 10 ML FLUSH IVF PRN (17:00)
--- NOTE | 2017-04-26 17:16 | RADRPT ---
EXAM DATE/TIME: 04/26/2017 16:55 [facility] COMPARISON: CHEST SINGLE AP, April 22, 2017, 12:25. INDICATIONS : High blood pressure and dizziness. MEDICAL HISTORY : Hypertension. Myocardial infarction. SURGICAL HISTORY : Cardiac stents. ENCOUNTER: Initial ACUITY: 1 day PAIN SCORE: 0/10 LOCATION: Bilateral chest FINDINGS: There is mild infiltrate in the left lower lobe. Right lung is grossly clear. No significant effusion suspected. Cardiac contours are satisfactory. CONCLUSION: Mild left lower lobe infiltrate. Shahid Marte MD on April 26, 2017 at 17:12 Board Certified Radiologist. This report was verified electronically.
[2017-04-26 17:17] LABS: AUTOMATED NEUTROPHIL # 5.2 TH/MM3 (1.8-7.7); BASOPHIL # 0.1 TH/MM3 (0-0.2); BASOPHIL % 0.9 % (0.0-2.0); EOSINOPHIL # 0.6 TH/MM3 (0-0.4); EOSINOPHIL % 7.5 % (0.0-4.0); HEMOGLOBIN 13.1 GM/DL (13.0-17.0); LYMPH % 22.7 % (9.0-44.0); LYMPHOCYTE # 1.9 TH/MM3 (1.0-4.8); MEAN CELL VOLUME 90.5 FL (80.0-100.0); MEAN CORPUSCULAR HEMOGLOBIN 29.6 PG (27.0-34.0); MEAN CORPUSCULAR HGB CONC 32.7 % (32.0-36.0); MEAN PLATELET VOLUME 9.3 FL (7.0-11.0); MONO % 4.6 % (0.0-8.0); MONOCYTE # 0.4 TH/MM3 (0-0.9); NEUT % 64.3 % (16.0-70.0); PLATELET COUNT 203 TH/MM3 (150-450); RED BLOOD COUNT 4.42 MIL/MM3 (4.50-5.90); WHITE BLOOD COUNT 8.2 TH/MM3 (4.0-11.0)
[2017-04-26 17:24] VITALS: BP 199/83; PULSE 61; RESP 18; O2SAT 96
[2017-04-26 17:25] VITALS: BP_SYST 199; BP_SYST 213; BP_DIAS 83; BP_DIAS 84; PULSE 60
[2017-04-26 17:28] LABS: CHLORIDE 109 MEQ/L (98-107); SODIUM (NA) 141 MEQ/L (136-145)
[2017-04-26 17:32] LABS: ALBUMIN 3.5 GM/DL (3.4-5.0); BICARBONATE 25.9 MEQ/L (21.0-32.0); CALCIUM 8.6 MG/DL (8.5-10.1); GLUCOSE,RANDOM 109 MG/DL (74-106)
[2017-04-26 17:33] LABS: BLOOD UREA NITROGEN 34 MG/DL (7-18)
[2017-04-26 17:35] LABS: ALT (GPT) 12 U/L (12-78); AST (GOT) 30 U/L (15-37); GLOMERULAR FILTRATION RATE 36 ML/MIN (>89); PROTHROMBIN TIME - PATIENT 10.6 SEC (9.8-11.6)
[2017-04-26 17:37] LABS: TOTAL BILIRUBIN ADULT 0.5 MG/DL (0.2-1.0); TOTAL PROTEIN 7.4 GM/DL (6.4-8.2)
[2017-04-26 17:38] LABS: ALKALINE PHOSPHATASE 80 U/L (45-117)
[2017-04-26 17:40] LABS: TROPONIN I LESS THAN 0.02 NG/ML (0.02-0.05)
[2017-04-26] MEDS ORDERED: GADOBENATE DIM PF 529 MG/ML 5 ML VIAL (for RAD MRI) IV ONE (18:03)
--- NOTE | 2017-04-26 18:10 | RADRPT ---
EXAM DATE/TIME: 04/26/2017 17:53 [facility] COMPARISON: No previous studies available for comparison. INDICATIONS : Aneurysm. Lightheaded and dizziness. MEDICAL HISTORY : Hypertension. SURGICAL HISTORY : Cholecystectomy. Coronary artery stent. Hernia repair. ENCOUNTER: Initial ACUITY: 1 day PAIN SCORE: 0/10 LOCATION: Head. Please note a normal MRA of the brain does not entirely exclude the possibility of a small aneurysm, nor the possibility of distal intracranial vessel disease. TECHNIQUE: 3D time of flight MRA was performed. Source images, multiplanar STS MIP, and 3D volume MIP reconstru ctions were reviewed. FINDINGS: There is excellent visualization of the major intracranial arteries out to the second-order branch ve ssels. There is no evidence for aneurysm, vessel truncation or stenosis, and no evidence for vascula r malformation. CONCLUSION: Normal examination for a patient of this age. Jeremy Varela MD on April 26, 2017 at 18:05 Board Certified Radiologist. This report was verified electronically.
[2017-04-26] MEDS ORDERED: AUGM875T3 PO (18:23)
[2017-04-26 18:24] VITALS: BP 174/90; PULSE 88; RESP 18; O2SAT 97
[2017-04-26] MEDS ORDERED: LEVOFLOXACIN 750 MG TAB PO ONE (18:30)
--- NOTE | 2017-04-26 18:42 | RADRPT ---
EXAM DATE/TIME: 04/26/2017 17:53 [facility] COMPARISON: No previous studies available for comparison. INDICATIONS : Aneurysm. Lightheaded and dizziness. CONTRAST: 14 cc Multihance (gadobenate) IV MEDICAL HISTORY : Hypertension. SURGICAL HISTORY : Cholecystectomy. Coronary artery stent. Hernia repair. ENCOUNTER: Initial ACUITY: 1 day PAIN SCORE: 0/10 LOCATION: Head. TECHNIQUE: Multiplanar, multisequence MRI of the brain was performed both prior to and following the administrat ion of paramagnetic contrast. 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 There is moderate to sev ere chronic ischemic changes and hemorrhage the white matter. No supratentorial acute infarctions are identified. No mass effect or shift. No abscess. No abnormal extra-axial fluid collections. No abnormal enhanceme nt. CONCLUSION: 1. 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 2. Moderate to severe chronic ischemic changes in the periventricular white matter. Jeremy Varela MD on April 26, 2017 at 18:32 Board Certified Radiologist. This report was verified electronically.
[2017-04-26] MEDS ORDERED: CLON.1 PO (19:04)
[2017-04-26 19:21] VITALS: BP 168/74
--- NOTE | 2017-04-27 15:53 | EKG ---
Date Performed: 04/26/2017 Time Performed: 17:10:06 PTAGE: 87 years EKG: SINUS BRADYCARDIA RIGHT BUNDLE BRANCH BLOCK ABNORMAL ECG PREVIOUS TRACING : 04/22/2017 12.42 No significant change from previous tracing noted. DOCTOR: Maximo Mehta Interpretating Date/Time 04/27/2017 15:53:11
== END 2017-04-26 19:31 | disposition home or self-care (01) ==
LOC: PHED 15:35
DX: I10 Essential (primary) hypertension (principal); J18.1 Lobar pneumonia, unspecified organism; I45.10 Unspecified right bundle-branch block; E78.00 Pure hypercholesterolemia, unspecified; I25.2 Old myocardial infarction; Z88.2 Allergy status to sulfonamides; Z95.5 Presence of coronary angioplasty implant and graft; Z79.82 Long term (current) use of aspirin; Z79.899 Other long term (current) drug therapy
CPT/HCPCS: 70544; 70553; 71045; 80053; 82550; 82552; 83690; 83880; 84484; 85025; 85610; 85730; 93005; 96374; 99291; A9577; J0360

== ENCOUNTER 2017-05-19 22:38 | Emergency (ER) | payer OTHER, MEDICARE ==
[~2017-05-19] VITALS: Ht 172.7 cm; Wt 75.3 kg
[~2017-05-19 22:38] MED LIST changes: -ASPI81CH25 PO; +AUGM875T3 PO; +CLON.1 PO; -FISH1200 PO; -OXYB10TA PO; -TAMS0.4C4 PO
[2017-05-19 22:39] VITALS: BP 210/80; PULSE 47; RESP 20; TEMP 97.4; O2SAT 99
[2017-05-19 23:05] VITALS: BP 221/87; PULSE 64; RESP 18; O2SAT 95
--- NOTE | 2017-05-19 23:26 | PD ---
HPI Chief Complaint: Hypertension Time Seen by Provider: 23:03 Travel History International Travel<30 days: No Contact w/Intl Traveler<30days: No Traveled to known affect area: No History of Present Illness HPI The patient is an 87-year-old male that apparently was told by Dr. Wharton's office to go to the emergency department if his bottom number on the blood pressure was over 80. It was 82 at home. He has had vertigo for 2 weeks and started vomiting here in the emergency department. He states he is taking his medications correctly. He denies any chest pain, shortness of breath, focal neurologic change or headache. Apparently, the systolic blood pressure was elevated in Dr. Wharton's office several weeks ago but the bottom number was 80 and they said that this was okay. PFSH Past Medical History Hx Anticoagulant Therapy: Yes Arthritis: No Asthma: No Anxiety: No Depression: No Heart Rhythm Problems: Yes (2 stents placed 10/14/16) Cardiac Catheterization: No Cardiovascular Problems: Yes High Cholesterol: Yes Chest Pain: No Congestive Heart Failure: No COPD: No Cerebrovascular Accident: No Diabetes: No Diminished Hearing: No Endocrine: No GERD: No Genitourinary: No Hiatal Hernia: No Hypertension: Yes Immune Disorder: No Kidney Stones: No Musculoskeletal: No Neurologic: No Psychiatric: No Reproductive: No Respiratory: No Immunizations Current: Yes Migraines: No Myocardial Infarction: No Renal Failure: No Seizures: No Sleep Apnea: No Ulcer: No Influenza Vaccination: Yes Past Surgical History Abdominal Surgery: Yes (ADHESION REMOVAL) Appendectomy: Yes Arteriovenous Shunt: No Cardiac Surgery: Yes (STENT) Cholecystectomy: Yes Coronary Artery Bypass Graft: No Ear Surgery: Yes (CATARACT REMOVAL X2) Endocrine Surgery: No Eye Surgery: No Genitourinary Surgery: No Gynecologic Surgery: No Insulin Pump: No Oral Surgery: No Thoracic Surgery: No Other Surgery: Yes (HERNIA 1999; TURP 1998) Family History Family Myocardial Infarction: Yes (father) Social History Alcohol Use: No Tobacco Use: No (QUIT 1954) Substance Use: No Allergies-Medications (Allergen,Severity, Reaction): Coded Allergies: Sulfa (Sulfonamide Antibiotics) (Unverified Allergy, Severe, 05/19/17) Reported Meds & Prescriptions Reported Meds & Active Scripts Active Catapres (Clonidine) 0.1 Mg Tab 0.1 Mg PO ONCE Enalapril (Enalapril Maleate) 5 Mg Tab 5 Mg PO BID Coreg (Carvedilol) 3.125 Mg Tab 3.125 Mg PO Q12HR Brilinta (Ticagrelor) 90 Mg Tab 90 Mg PO BID Reported Finasteride 5 Mg Tab 5 Mg PO DAILY Do not crush. Ditropan (Oxybutynin Chloride) 5 Mg Tab 5 Mg PO Q8HR Aspirin Low Dose (Aspirin) 81 Mg Chew 81 Mg CHEW BID Vitamin C (Ascorbic Acid) 250 Mg Chew 250 Mg CHEW DAILY Multi Vitamin Daily (Multiple Vitamin) 1 Tab Tab PO DAILY Vitamin D (Cholecalciferol) 2,000 Unit Tab 2,000 Units PO DAILY Allopurinol 100 Mg Tab 100 Mg PO DAILY Simvastatin 20 Mg Tab 20 Mg PO HS Review of Systems Except as stated in HPI: all other systems reviewed are Neg Physical Exam Narrative GENERAL: The patient is alert, oriented 3 in minimal apparent distress with his nausea and vertigo. The blood pressure is 210/80 and heart rate is 47 but the rest of the vital signs are normal. SKIN: Focused skin assessment warm/dry. HEAD: Atraumatic. Normocephalic. EYES: Pupils equal and round. No scleral icterus. No injection or drainage. ENT: No nasal bleeding or discharge. Mucous membranes pink and moist. NECK: Trachea midline. No JVD. CARDIOVASCULAR: Regular rate and rhythm. No murmur appreciated. RESPIRATORY: No accessory muscle use. Clear to auscultation. Breath sounds equal bilaterally. GASTROINTESTINAL: Abdomen soft, non-tender, nondistended. Hepatic and splenic margins not palpable. MUSCULOSKELETAL: No obvious deformities. No clubbing. No cyanosis. No edema. NEUROLOGICAL: Awake and alert. No obvious cranial nerve deficits. Motor grossly within normal limits. Normal speech. PSYCHIATRIC: Appropriate mood and affect; insight and judgment normal. Data Data Last Documented VS Vital Signs Date Time Temp Pulse Resp B/P (MAP) Pulse Ox O2 Delivery O2 Flow Rate FiO2 05/19/17 23:05 59 16 97 Room Air 05/19/17 22:39 97.4 210/80 (123) Orders Orders Lorazepam Inj (Ativan Inj) (05/19/17 23:30) Electrocardiogram (05/19/17 23:20) Complete Blood Count With Diff (05/19/17 23:20) Comprehensive Metabolic Panel (4/11/18 23:20) Troponin I (05/19/17 23:20) Labs Laboratory Tests Test 05/19/17 23:45 White Blood Count 8.3 TH/MM3 Red Blood Count 4.24 MIL/MM3 Hemoglobin 12.6 GM/DL Hematocrit 38.3 % Mean Corpuscular Volume 90.3 FL Mean Corpuscular Hemoglobin 29.6 PG Mean Corpuscular Hemoglobin Concent 32.8 % Red Cell Distribution Width 14.4 % Platelet Count 180 TH/MM3 Mean Platelet Volume 9.3 FL Neutrophils (%) (Auto) 57.5 % Lymphocytes (%) (Auto) 24.5 % Monocytes (%) (Auto) 8.6 % Eosinophils (%) (Auto) 8.8 % Basophils (%) (Auto) 0.6 % Neutrophils # (Auto) 4.9 TH/MM3 Lymphocytes # (Auto) 2.0 TH/MM3 Monocytes # (Auto) 0.7 TH/MM3 Eosinophils # (Auto) 0.7 TH/MM3 Basophils # (Auto) 0.0 TH/MM3 CBC Comment DIFF FINAL Differential Comment Blood Urea Nitrogen 37 MG/DL Creatinine 2.00 MG/DL Random Glucose 123 MG/DL Total Protein 6.8 GM/DL Albumin 3.5 GM/DL Calcium Level 8.5 MG/DL Alkaline Phosphatase 80 U/L Aspartate Amino Transf (AST/SGOT) 8 U/L Alanine Aminotransferase (ALT/SGPT) 12 U/L Total Bilirubin 0.5 MG/DL Sodium Level 142 MEQ/L Potassium Level 4.3 MEQ/L Chloride Level 109 MEQ/L Carbon Dioxide Level 27.6 MEQ/L Anion Gap 5 MEQ/L Estimat Glomerular Filtration Rate 32 ML/MIN Troponin I LESS THAN 0.02 NG/ML MDM Medical Decision Making Medical Screen Exam Complete: Yes Emergency Medical Condition: Yes Medical Record Reviewed: Yes Interpretation(s) The CBC shows a hemoglobin of 12.6 and hematocrit of 38.3 but is otherwise unremarkable. The BUN is 37, creatinine 2.0 with GFR of 32 but the rest of the complete metabolic profile is normal. The troponin I is normal. EKG shows sinus bradycardia with right bundle branch block and no acute ST elevation or depression. Differential Diagnosis Vertigo, anxiety related blood pressure elevation, blood pressure poor control, chronic blood pressure elevation Narrative Course It is now 002 1 in the morning and the patient's vertigo had subsided. His blood pressure is now 202/74. Impression: Vertigo with vomiting Plan: The patient be given Compazine and follow-up with Dr. Wharton, hopefully this week. Diagnosis Primary Impression: Vertigo Additional Impression: Vomiting Additional Instructions: The prochlorperazine (Compazine) is for nausea. It may also help the vertigo. It is 1 tablet every 6 hours as needed. Follow-up as soon as possible with Dr. Wharton regarding the vertigo. Med/Other Pt SpecificInfo: Prescription(s) given Scripts Prochlorperazine Maleate (Prochlorperazine Maleate) 10 Mg Tab 10 MG PO Q6H Y for NAUSEA OR VOMITING, #30 TAB 0 Refills Prov: Raz Chamorro MD 05/20/17 Disposition: 01 DISCHARGE HOME Condition: Stable Raz Chamorro MD May 19, 2017 23:26
[2017-05-19] MEDS ORDERED: LORazepam 2 MG/ML VIAL IV PUSH ONE (23:30)
[2017-05-19 23:55] LABS: AUTOMATED NEUTROPHIL # 4.9 TH/MM3 (1.8-7.7); BASOPHIL % 0.6 % (0.0-2.0); EOSINOPHIL # 0.7 TH/MM3 (0-0.4); EOSINOPHIL % 8.8 % (0.0-4.0); HEMATOCRIT 38.3 % (39.0-51.0); HEMOGLOBIN 12.6 GM/DL (13.0-17.0); LYMPH % 24.5 % (9.0-44.0); MEAN CELL VOLUME 90.3 FL (80.0-100.0); MEAN CORPUSCULAR HEMOGLOBIN 29.6 PG (27.0-34.0); MEAN CORPUSCULAR HGB CONC 32.8 % (32.0-36.0); MEAN PLATELET VOLUME 9.3 FL (7.0-11.0); MONO % 8.6 % (0.0-8.0); MONOCYTE # 0.7 TH/MM3 (0-0.9); NEUT % 57.5 % (16.0-70.0); PLATELET COUNT 180 TH/MM3 (150-450); RED BLOOD COUNT 4.24 MIL/MM3 (4.50-5.90); RED CELL DISTRIBUTION WIDTH 14.4 % (11.6-17.2); WHITE BLOOD COUNT 8.3 TH/MM3 (4.0-11.0)
[2017-05-20] VITALS: BP 202/74; PULSE 58; RESP 16; O2SAT 96
[2017-05-20 00:05] LABS: CHLORIDE 109 MEQ/L (98-107); SODIUM (NA) 142 MEQ/L (136-145)
[2017-05-20 00:07] LABS: CALCIUM 8.5 MG/DL (8.5-10.1)
[2017-05-20 00:08] LABS: ALBUMIN 3.5 GM/DL (3.4-5.0); BICARBONATE 27.6 MEQ/L (21.0-32.0); BLOOD UREA NITROGEN 37 MG/DL (7-18); GLUCOSE,RANDOM 123 MG/DL (74-106)
[2017-05-20 00:11] LABS: ALT (GPT) 12 U/L (12-78); AST (GOT) 8 U/L (15-37); GLOMERULAR FILTRATION RATE 32 ML/MIN (>89)
[2017-05-20 00:12] LABS: TOTAL BILIRUBIN ADULT 0.5 MG/DL (0.2-1.0); TOTAL PROTEIN 6.8 GM/DL (6.4-8.2)
[2017-05-20 00:14] LABS: ALKALINE PHOSPHATASE 80 U/L (45-117)
[2017-05-20 00:16] LABS: TROPONIN I LESS THAN 0.02 NG/ML (0.02-0.05)
[2017-05-20] MEDS ORDERED: PROC10TA PO (00:25)
[2017-05-20 00:30] VITALS: BP 189/70; PULSE 60; RESP 16; O2SAT 93
[2017-05-20 01:10] VITALS: BP 189/69
--- NOTE | 2017-05-20 18:49 | EKG ---
Date Performed: 05/19/2017 Time Performed: 23:36:05 PTAGE: 87 years EKG: SINUS BRADYCARDIA RIGHT BUNDLE BRANCH BLOCK Since the previous tracing, no significant cruz ge noted ABNORMAL ECG PREVIOUS TRACING : 04/26/2017 17.10 DOCTOR: Jamal Castle Interpretating Date/Time 05/20/2017 18:46:12
== END 2017-05-20 01:17 | disposition home or self-care (01) ==
LOC: PHED 22:38
DX: R42 Dizziness and giddiness (principal); I10 Essential (primary) hypertension; R11.2 Nausea with vomiting, unspecified; R94.31 Abnormal electrocardiogram [ECG] [EKG]; Z88.2 Allergy status to sulfonamides; Z79.01 Long term (current) use of anticoagulants
CPT/HCPCS: 80053; 84484; 85025; 93005; 96374; 99284; J2060

== ENCOUNTER 2017-10-12 08:58 | Inpatient (IN) ==
[2017-10-12 10:33] LABS: Baso # (Auto) 0.1 th/mm3 (0.0-0.2); Baso % (Auto) 0.8 % (0.0-2.0); Eos # (Auto) 0.8 th/mm3 (0.0-0.4); Eos % (Auto) 8.7 % (0.0-4.0); Hematocrit 37.3 % (39.0-51.0); Hemoglobin 12.5 gm/dL (13.0-17.0); Lymph # (Auto) 1.5 th/mm3 (1.0-4.8); Lymph % (Auto) 16.8 % (9.0-44.0); Mean Corpuscular HGB Conc 33.5 % (32.0-36.0); Mean Corpuscular Hemoglobin 30.9 pg (27.0-34.0); Mean Corpuscular Volume 92.2 fL (80.0-100.0); Mean Platelet Volume 10.4 fL (7.0-11.0); Mono # (Auto) 0.7 th/mm3 (0.0-0.9); Mono % (Auto) 7.8 % (0.0-8.0); Neut # (Auto) 5.8 th/mm3 (1.8-7.7); Neut % (Auto) 65.9 % (16.0-70.0); Platelet Count 182 th/mm3 (150-450); Red Blood Count 4.04 mil/mm3 (4.50-5.90); Red Cell Distribution Width 14.8 % (11.6-17.2); White Blood Count 8.7 th/mm3 (4.0-11.0)
[2017-10-12 10:56] LABS: Alanine Aminotransferase 12 U/L (12-78); Albumin 3.1 g/dL (3.4-5.0); Anion Gap 9 meq/L (5-15); Aspartate Aminotransferase 10 U/L (15-37); Blood Urea Nitrogen 28 mg/dL (7-18); Calcium 8.4 mg/dL (8.5-10.1); Carbon Dioxide 26.1 meq/L (21.0-32.0); Chloride 109 meq/L (98-107); Glomerular Filtration Rate 34 mL/min (>89); Glucose,Random 91 mg/dL (74-106); Magnesium 2.3 mg/dL (1.5-2.5); Potassium 4.4 meq/L (3.5-5.1); Sodium 144 meq/L (136-145)
[2017-10-12 10:59] LABS: Alkaline Phosphatase 85 U/L (45-117); Total Protein 6.5 g/dL (6.4-8.2)
[2017-10-12 11:02] LABS: Creatine Kinase 76 U/L (39-308)
--- NOTE | 2017-10-12 13:08 | MR ---
EXAM DATE: 10/12/2017 1:01 PM EDT AGE/SEX: 87 years / Male INDICATIONS: . Inability to ambulate. CLINICAL DATA: This is the patient's initial encounter. Patient reports that signs and symptoms have been present for 2 days and indicates a pain score of 0/10. MEDICAL/SURGICAL HISTORY: Hypertension. stage 4 kidney disease Tonsillectomy. Cholecystectomy . hernia COMPARISON: No prior exams available for comparison. TECHNIQUE: Multiplanar, multisequence MRI of the thoracic spine was performed. FINDINGS: Vertebrae: Normal vertebral body height. Homogeneous marrow signal. Diffuse disc desiccation. Alignment: Kyphosis and diffuse mild degenerative changes.. Cord: Normal position and configuration. T1-T2: The thecal sac has a normal diameter. No evidence of disc bulge or protrusion. T2-T3: The thecal sac has a normal diameter. No evidence of disc bulge or protrusion. T3-T4: The thecal sac has a normal diameter. No evidence of disc bulge or protrusion. T4-T5: The thecal sac has a normal diameter. No evidence of disc bulge or protrusion. T5-T6: The thecal sac has a normal diameter. No evidence of disc bulge or protrusion. T6-T7: The thecal sac has a normal diameter. No evidence of disc bulge or protrusion. T7-T8: Tiny central protrusion abuts the ventral thecal sac without canal stenosis. T8-T9: Tiny central protrusion abuts the ventral thecal sac without canal stenosis. T9-T10: The thecal sac has a normal diameter. No evidence of disc bulge or protrusion. T10-T11: The thecal sac has a normal diameter. No evidence of disc bulge or protrusion. T11-T12: Mild broad-based disc bulge abuts the ventral thecal sac without canal stenosis. T12-L1: The thecal sac has a normal diameter. No evidence of disc bulge or protrusion. CONCLUSION: 1. Kyphosis and diffuse mild degenerative changes. 2. Tiny central protrusions at T7-8 and T8-9 levels. Electronically signed by: Jag Masterson MD 10/12/2017 1:07 PM EDT
--- NOTE | 2017-10-12 13:20 | MR ---
EXAM DATE: 10/12/2017 1:14 PM EDT AGE/SEX: 87 years / Male INDICATIONS: . Inability to ambulate. CLINICAL DATA: This is the patient's initial encounter. Patient reports that signs and symptoms have been present for 2 days and indicates a pain score of 0/10. MEDICAL/SURGICAL HISTORY: Hypertension. stage 4 kidney disease Tonsillectomy. Cholecystectomy . hernia COMPARISON: No prior exams available for comparison. TECHNIQUE: Multiplanar, multisequence MRI of the lumbar spine was performed without contrast. Patie nt was scanned in a sitting position; neutral, flexion, and extension scans were performed in the sa gittal plane. FINDINGS: Vertebra: Homogeneous signal. Normal alignment. Diffuse disc desiccation. Conus: Normal level and configuration. T12-L1: The thecal sac has a normal diameter. No evidence of disc bulge or protrusion. The neural foramina are patent bilaterally. L1-L2: The thecal sac has a normal diameter. No evidence of disc bulge or protrusion. The neural foramina are patent bilaterally. L2-L3: Mild broad-based disc bulge abuts the ventral thecal sac without canal stenosis. The neural foramina are patent bilaterally. L3-L4: Mild to moderate broad-based disc bulge abuts the ventral thecal sac without canal stenosis. The neural foramina are patent bilaterally. L4-L5: Mild to moderate broad-based protrusion abuts ventral thecal sac causing a mild degree of ca nal stenosis. The disc abuts the exiting L4 nerve roots. Mild neural foraminal narrowing bilaterally. Mild facet arthropathy. L5-S1: The thecal sac has a normal diameter. No evidence of disc bulge or protrusion. The neural foramina are patent bilaterally. CONCLUSION: 1. Multilevel disc bulges/protrusions. Mild canal stenosis at L4-5. 2. No compression fracture or spondylolisthesis. Electronically signed by: Jag Masterson MD 10/12/2017 1:19 PM EDT
--- NOTE | 2017-10-12 13:29 | ED ---
HPI General Chief complaint: Weakness Stated complaint: weakness Time Seen by Provider: 10/12/17 09:44 Source: patient Limitations: physical limitation History of Present Illness HPI Narrative: Patient is an 87-year-old male who returns to the emergency room for evaluation of generalized weakness with gait instability. Patient reports that he was seen in the emergency room yesterday after he suffered a mechanical fall. Patient reports that around 11 AM yesterday, he fell when he was walking away from his table. Reports that he cannot recall the events of his fall, denies any loss of consciousness. He did fall onto carpeted floor. Patient reports that he has not been able to ambulate after his fall yesterday. Patient was seen at the [facility] and had a workup and was discharged home around 6 PM. Patient reports that they use a wheelchair to discharge him, reports that he was unable to ambulate after he was discharged. Patient reports that he woke up today and still cannot ambulate, he did have episodes of urinary incontinence as well as incontinence of stool, reports that he came back to the emergency room for evaluation as he feels weak and cannot ambulate. Patient with no pain, denies any chest pain or back pain or shortness of breath. Patient with no other complaints. Patient does take a baby aspirin per day. Patient with reports history of MT in the past, stents to the groin, history of hypertension. Related Data Home Medications Medication Instructions Recorded Confirmed allopurinol 100 mg PO DAILY 10/11/17 10/12/17 ascorbic acid (vitamin C) [Vitamin 500 mg PO DAILY 10/11/17 10/12/17 C] aspirin [Aspir-Low] 81 mg PO BID 10/11/17 10/12/17 carvedilol 3.125 mg PO DAILY 10/11/17 10/12/17 cholecalciferol (vitamin D3) 2,000 unit PO DAILY 10/11/17 10/12/17 [Vitamin D3] clonidine HCl 0.1 mg PO DAILY 10/11/17 10/12/17 enalapril maleate 5 mg PO BID 10/11/17 10/12/17 famotidine 20 mg PO DAILY 10/11/17 10/11/17 oxybutynin chloride 10 mg PO TID 10/11/17 10/12/17 simvastatin 20 mg PO QPM 10/11/17 10/12/17 finasteride 5 mg PO DAILY 10/12/17 10/12/17 Allergies Allergy/AdvReac Type Severity Reaction Status Date / Time Sulfa (Sulfonamide Allergy Severe Rash Verified 10/12/17 09:27 Antibiotics) Review of Systems ROS: all other systems reviewed are negative [facility] Medical History Medical History High cholesterol (Acute) Kidney disease (Acute) Myocardial infarction (Acute) Surgical History Surgical History History of coronary artery stent placement (Acute) Hx of appendectomy (Acute) Hx of cholecystectomy (Acute) Hx of tonsillectomy (Acute) Social History Social History Substance History: No History of Abuse Second Hand Smoke Exposure: No Smoking Status: Never smoker How Often Do You Have a Drink Containing Alcohol: Never Recent Travel in [facility] within the Last 8 Weeks: No Recent Out of Country Travel within the Last 8 Weeks: No Immunization History Tetanus Immunization: <5 Years Hx Influenza Vaccine This Season: Yes Exam Narrative Exam Narrative: GENERAL: NAD SKIN: Focused skin assessment warm/dry. HEAD: Atraumatic. Normocephalic. EYES: Pupils equal and round. No scleral icterus. No injection or drainage. ENT: No nasal bleeding or discharge. Mucous membranes pink and moist. NECK: Trachea midline. No JVD. CARDIOVASCULAR: Regular rate and rhythm. No murmur appreciated. RESPIRATORY: No accessory muscle use. Clear to auscultation. Breath sounds equal bilaterally. GASTROINTESTINAL: Abdomen soft, non-tender, nondistended. Hepatic and splenic margins not palpable. MUSCULOSKELETAL: No obvious deformities. No clubbing. No cyanosis. No edema. NEUROLOGICAL: Awake and alert. No obvious cranial nerve deficits. Patient unable to move his lower extremities b/l. Normal speech. PSYCHIATRIC: Appropriate mood and affect; insight and judgment normal. Course Initial Documented Vital Signs Temperature 98 F 10/12/17 09:30 Pulse Rate 50 L 10/12/17 09:30 Respiratory Rate 18 10/12/17 09:30 Blood Pressure 179/78 H 10/12/17 09:30 Pulse Oximetry 98 10/12/17 09:30 Last Documented Vital Signs Temperature 98 F 10/12/17 09:30 Pulse Rate 56 L 10/12/17 10:45 Respiratory Rate 18 10/12/17 10:45 Blood Pressure 205/80 H 10/12/17 10:45 Pulse Oximetry 98 10/12/17 14:27 Medical Decision Making MDM Narrative Medical decision making narrative: During the course of the patients emergency department visit, the patients history, examination, and differential diagnosis were reviewed with the patient. The patient was placed on a groundwater monitoring technician with oximetry and frequent blood pressure monitoring. The patient had an IV access obtained and blood work sent for analysis. lab work as well as MRI's were reviewed - I am not sure why patient is unable to ambulate - he will require admission as he is unsafe to be discharged back to home - patient is normally ambulatory at baseline Case reviewed with Dr. Rajput who accepts patient to service Medical Screen Exam Complete: Yes Emergency Medical Condition: Yes Differential Diagnosis Differential Diagnosis: cauda equina, thoracic/lumbar compression fracture, electrolyte abnormality, uti Medical Records Medical records reviewed: Yes I reviewed the patient's medical records. Lab Data Lab results reviewed: Yes I reviewed the patient's lab results. Result diagrams: 10/12/17 09:25 10/12/17 09:25 Lab Results 10/12/17 10/12/17 10/12/17 Range/Units 09:25 09:25 09:25 WBC 8.7 (4.0-11.0) th/mm3 RBC 4.04 L (4.50-5.90) mil/mm3 Hgb 12.5 L (13.0-17.0) gm/dL Hct 37.3 L (39.0-51.0) % MCV 92.2 (80.0-100.0) fL MCH 30.9 (27.0-34.0) pg MCHC 33.5 (32.0-36.0) % RDW 14.8 (11.6-17.2) % Plt Count 182 (150-450) th/mm3 MPV 10.4 (7.0-11.0) fL Neut % (Auto) 65.9 (16.0-70.0) % Lymph % (Auto) 16.8 (9.0-44.0) % [place] % (Auto) 7.8 (0.0-8.0) % Eos % (Auto) 8.7 H (0.0-4.0) % Baso % (Auto) 0.8 (0.0-2.0) % Neut # (Auto) 5.8 (1.8-7.7) th/mm3 Lymph # (Auto) 1.5 (1.0-4.8) th/mm3 [place] # (Auto) 0.7 (0.0-0.9) th/mm3 Eos # (Auto) 0.8 H (0.0-0.4) th/mm3 Baso # (Auto) 0.1 (0.0-0.2) th/mm3 WBC Differential . Differential Comment Auto diff final Sodium 144 (136-145) meq/L Potassium 4.4 (3.5-5.1) meq/L Chloride 109 H (98-107) meq/L Carbon Dioxide 26.1 (21.0-32.0) meq/L Anion Gap 9 (5-15) meq/L BUN 28 H (7-18) mg/dL Creatinine 1.89 H (0.60-1.30) mg/dL Estimated GFR 34 L (>89) mL/min Random Glucose 91 (74-106) mg/dL Calcium 8.4 L (8.5-10.1) mg/dL Magnesium 2.3 (1.5-2.5) mg/dL Total Bilirubin 0.6 (0.2-1.0) mg/dL AST 10 L (15-37) U/L ALT 12 (12-78) U/L Alkaline Phosphatase 85 (45-117) U/L Total Creatine Kinase 76 (39-308) U/L Troponin I Less than 0.02 L (0.02-0.05) ng/mL B-Natriuretic Peptide 384 H (0-100) pg/mL Total Protein 6.5 (6.4-8.2) g/dL Albumin 3.1 L (3.4-5.0) g/dL Imaging Data Attestation: I personally reviewed and interpreted this imaging study as follows : Radiologist's impression: Lumbar Spine MRI 10/12/17 09:59 CONCLUSION: 1. Multilevel disc bulges/protrusions. Mild canal stenosis at L4-5. 2. No compression fracture or spondylolisthesis. Thoracic Spine MRI 10/12/17 09:59 CONCLUSION: 1. Kyphosis and diffuse mild degenerative changes. 2. Tiny central protrusions at T7-8 and T8-9 levels. Discharge Plan Discharge Disposition Patient Disposition: 30 Still Patient Discharge Condition Condition: Stable Discharge Details Diagnosis: Gait instability Physicians Team ED Provider: Cherry Quan Primary Care Provider: Chente Wharton Other Providers: Meghana Tafoya Rxs /Orders / Referrals /Forms Prescriptions: No Action clonidine HCl 0.1 mg Tablet 0.1 mg PO DAILY RF: 0 enalapril maleate 5 mg Tablet 5 mg PO BID RF: 0 allopurinol 100 mg Tablet 100 mg PO DAILY RF: 0 aspirin [Aspir-Low] 81 mg Tablet,Delayed Release (Dr/Ec) 81 mg PO BID RF: 0 carvedilol 3.125 mg Tablet 3.125 mg PO DAILY RF: 0 famotidine 20 mg Tablet 20 mg PO DAILY RF: 0 ascorbic acid (vitamin C) [Vitamin C] 500 mg Tablet 500 mg PO DAILY RF: 0 simvastatin 20 mg Tablet 20 mg PO QPM RF: 0 oxybutynin chloride 5 mg Tablet 10 mg PO TID RF: 0 cholecalciferol (vitamin D3) [Vitamin D3] 2,000 unit Tablet 2,000 unit PO DAILY RF: 0 finasteride 5 mg Tablet 5 mg PO DAILY RF: 0 Discharge Interventions Interventions: Vital Signs Last Done: 10/12/17 10:45 Status ED Status: With Doctor
[2017-10-12] MEDS ORDERED: Acetaminophen 325 MG Tablet PO PRN ×2 (14:21→14:24)
[2017-10-12] MEDS ORDERED: Bisacodyl 10 MG Supp RECTAL PRN (14:21)
[2017-10-12] MEDS ORDERED: Morphine Sulfate Inj 2 MG/ML Vial IV.PUSH PRN (14:24)
[2017-10-12] MEDS ORDERED: Naloxone Inj 0.4 MG/ML Vial IV.PUSH PRN (14:24)
[2017-10-12] MEDS ORDERED: Morphine Inj 4 MG/ML Vial IV.PUSH PRN (14:24)
[2017-10-12 14:44] LABS: Bilirubin,Urine Negative (Negative); Clarity,Urine Clear (Clear); Color,Urine Yellow (Yellw/Straw); Glucose,Urine (UA) Negative (Negative); Leukocyte Esterase,Urine Negative (Negative); Mucus,Urine Few /lpf (Occasional); Nitrite,Urine Negative (Negative); Specific Gravity,Urine 1.009 (1.002-1.035)
[2017-10-12] MEDS ORDERED: Labetalol HCl Inj 100 MG/20 ML Vial IV.PUSH ONE (15:00)
--- NOTE | 2017-10-12 15:47 | P.CONNEU ---
History of Present Illness Service: Neurology Consult date: 10/12/17 Requesting Physician: Evangelista Christopher Reason for Consult: weakness Primary Care Provider: Chente Wharton MD Family Provider: Chente Wharton MD Chief Complaint: weakness, abnormal gait History of Present Illness: 87 y/o male reports yesterday morning he woke up and took out the recycling and ate breakfast without any difficulty and then sat down to watch tv for 30 minutes. When he stood up he felt like his legs would not hold him and that he was going to fall. He denies any falls. His had to assist him to the bathroom and bedroom. He denies hx of TIA or stroke. No hx of atrial fib. He has hx of [place] about a year ago and had been on Brillenta and last week was changed to ASA 81mg bid. His notes he is more confused than usual. They went to the ER in [place] yesterday and no cause was found and he was discharged home. As he was still unable to walk today his called [facility] for further evaluation. He has hx of vertigo since last May and has been doing vestibular rehab and balance therapy in [place]. He denies any vertigo symptoms with this event. No change in speech or other weakness except his right leg > left leg. He also has hx of HTN, no hx of DM. He has hx of stage 4 kidney disease Review of Systems All other systems reviewed negative except as stated in HPI [facility] - History History Provided By: Patient - Medical History Medical History: Medical History (Last Reviewed 10/12/17 @ 14:40 by Cherry Quan) High cholesterol Kidney disease Myocardial infarction - Surgical History Surgical History: Surgical History (Last Reviewed 10/12/17 @ 14:40 by Cherry Quan) History of coronary artery stent placement Hx of appendectomy Hx of cholecystectomy Hx of tonsillectomy - Tobacco History Second Hand Smoke Exposure: No Tobacco Use In Past 30 Days: No Smoking Status: Never smoker - Alcohol History How Often Do You Have a Drink Containing Alcohol: Never - Substance Use History Substance History: No History of Abuse - Travel History Recent Travel in the [place] Within the Last 8 Weeks: No Recent Travel Out of the Country Within the Last 8 Weeks: No - Immunization History Tetanus Immunization: <5 Years Hx Influenza Vaccine This Season: Yes Medications and Allergies Allergies Allergy/AdvReac Type Severity Reaction Status Date / Time Sulfa (Sulfonamide Allergy Severe Rash Verified 10/12/17 09:27 Antibiotics) Home Medications Medication Instructions Recorded Confirmed Type allopurinol 100 mg PO DAILY 10/11/17 10/12/17 History ascorbic acid (vitamin C) [Vitamin 500 mg PO DAILY 10/11/17 10/12/17 History C] aspirin [Aspir-Low] 81 mg PO BID 10/11/17 10/12/17 History carvedilol 3.125 mg PO DAILY 10/11/17 10/12/17 History cholecalciferol (vitamin D3) 2,000 unit PO DAILY 10/11/17 10/12/17 History [Vitamin D3] clonidine HCl 0.1 mg PO DAILY 10/11/17 10/12/17 History enalapril maleate 5 mg PO BID 10/11/17 10/12/17 History famotidine 20 mg PO DAILY 10/11/17 10/11/17 History oxybutynin chloride 10 mg PO TID 10/11/17 10/12/17 History simvastatin 20 mg PO QPM 10/11/17 10/12/17 History finasteride 5 mg PO DAILY 10/12/17 10/12/17 History Active Medications: Active Medications Acetaminophen (Tylenol) 650 mg PO Q4H PRN PRN Reason: Temp > 100.4 Acetaminophen (Tylenol) 650 mg PO Q6H PRN PRN Reason: PAIN SCALE 1 TO 2 Al Hydroxide/Mg Hydroxide (Milk Of Magnesia Liq) 30 ml PO Q12H PRN PRN Reason: Mild Constipation Bisacodyl (Dulcolax Supp) 10 mg RECTAL DAILY PRN PRN Reason: SEVERE CONSITIPATION Heparin Sodium (Porcine) (Heparin Inj) 5,000 units SQ Q12H YANET Lactulose (Lactulose Liq) 30 ml PO DAILY PRN PRN Reason: SEVERE CONSITIPATION Morphine Sulfate (Morphine Inj) 2 mg IV.PUSH Q3H PRN PRN Reason: PAIN 3-5; IF UABLE TO TAKE PO Morphine Sulfate (Morphine Inj) 4 mg IV.PUSH Q3H PRN PRN Reason: PAIN 6-10;IF UNABLE TO TAKE PO Naloxone HCl (Narcan Inj) 0.4 mg IV.PUSH UNSCH PRN PRN Reason: SEE LABEL COMMENTS Ondansetron HCl (Zofran Inj) 4 mg IV.PUSH Q6H PRN PRN Reason: NAUSEA OR VOMITING Oxycodone HCl (Roxicodone) 5 mg PO Q4H PRN PRN Reason: PAIN SCALE 3 TO 5 Oxycodone HCl (Roxicodone) 10 mg PO Q4H PRN PRN Reason: PAIN SCALE 6 TO 10 Senna/Docusate Sodium (Veronica-Colace) 1 tab PO BID YANET Sennosides (Senokot) 17.2 mg PO Q12H PRN PRN Reason: Moderate Constipation Sodium Chloride (Ns Flush) 2 ml IV.FLUSH PRN PRN PRN Reason: FLUSH AFTER USING IV ACCESS Exam Vital signs: Vital Signs 10/12/17 09:30 10/12/17 10:41 10/12/17 10:45 Temperature 98 F Pulse Rate 50 L 56 L Respiratory Rate 18 18 Blood Pressure 179/78 H 205/80 H Pulse Oximetry 98 98 98 10/12/17 14:27 10/12/17 14:51 10/12/17 15:21 Temperature Pulse Rate 63 65 Respiratory Rate 18 16 Blood Pressure 204/84 H 180/82 H Pulse Oximetry 98 96 Intake & Output 10/11/17 10/12/17 10/12/17 18:59 06:59 18:59 Weight 68.946 kg - Constitutional no acute distress - Routine Neurological Exam He is awake and alert to self and year, he is unsure of the month though knows we just celebrated labor day. He is unable to tell me the current President. He knows he is in the hospital and he knows his . II-XII intact, PERRL, EOMi, no nystagmus, mild facial asymmetry 5/5 uppers, good rn medicare bilaterally, able to lift left leg against gravity, right leg unable to hold against gravity, 4/5 weakness with dorsiflexion, plantar normal sensory - decreased to temp and light touch in stocking distribution, absent vibratory sense plantars flexor reflexes diminished at knees, absent ankles 2+ uppers f-n-f intact, no ataxia coordination intact speech- mild dysfluency, no dysarthria or aphasia gait- withheld Results - Labs CBC & Chem 7: 10/12/17 09:25 10/12/17 09:25 Labs: Laboratory Results - last 24 hr 10/12/17 10/12/17 10/12/17 09:25 09:25 09:25 WBC 8.7 RBC 4.04 L Hgb 12.5 L Hct 37.3 L MCV 92.2 MCH 30.9 MCHC 33.5 RDW 14.8 Plt Count 182 MPV 10.4 Neut % (Auto) 65.9 Lymph % (Auto) 16.8 [place] % (Auto) 7.8 Eos % (Auto) 8.7 H Baso % (Auto) 0.8 Neut # (Auto) 5.8 Lymph # (Auto) 1.5 [place] # (Auto) 0.7 Eos # (Auto) 0.8 H Baso # (Auto) 0.1 WBC Differential . Differential Comment Auto diff final Sodium 144 Potassium 4.4 Chloride 109 H Carbon Dioxide 26.1 Anion Gap 9 BUN 28 H Creatinine 1.89 H Estimated GFR 34 L Random Glucose 91 Calcium 8.4 L Magnesium 2.3 Total Bilirubin 0.6 AST 10 L ALT 12 Alkaline Phosphatase 85 Total Creatine Kinase 76 Troponin I Less than 0.02 L B-Natriuretic Peptide 384 H Total Protein 6.5 Albumin 3.1 L Urine Color Urine Clarity Urine pH Ur Specific [place] Urine Protein Urine Glucose (UA) Urine Ketones Urine Occult Blood Urine Nitrate Urine Bilirubin Urine Urobilinogen Ur Leukocyte Esterase Urine RBC Urine WBC Urine Mucus Micro UA Comment Ur Microscopic Review Urine Culture Comments 10/12/17 13:15 WBC RBC Hgb Hct MCV MCH MCHC RDW Plt Count MPV Neut % (Auto) Lymph % (Auto) [place] % (Auto) Eos % (Auto) Baso % (Auto) Neut # (Auto) Lymph # (Auto) [place] # (Auto) Eos # (Auto) Baso # (Auto) WBC Differential Differential Comment Sodium Potassium Chloride Carbon Dioxide Anion Gap BUN Creatinine Estimated GFR Random Glucose Calcium Magnesium Total Bilirubin AST ALT Alkaline Phosphatase Total Creatine Kinase Troponin I B-Natriuretic Peptide Total Protein Albumin Urine Color Yellow Urine Clarity Clear Urine pH 6.0 Ur Specific [place] 1.009 Urine Protein Negative Urine Glucose (UA) Negative Urine Ketones Trace H Urine Occult Blood Negative Urine Nitrate Negative Urine Bilirubin Negative Urine Urobilinogen Less than 2 Ur Leukocyte Esterase Negative Urine RBC Less than 1 Urine WBC Less than 1 Urine Mucus Few H Micro UA Comment Culture not ind Ur Microscopic Review Not Reportable Urine Culture Comments Culture not ind - Imaging Impressions Lumbar Spine MRI 10/12/17 09:59 CONCLUSION: 1. Multilevel disc bulges/protrusions. Mild canal stenosis at L4-5. 2. No compression fracture or spondylolisthesis. Thoracic Spine MRI 10/12/17 09:59 CONCLUSION: 1. Kyphosis and diffuse mild degenerative changes. 2. Tiny central protrusions at T7-8 and T8-9 levels. Review/Management - Diagnosis (1) Gait instability Code(s): R26.81 - Unsteadiness on feet Status: Acute Current Visit: Yes (2) Hypertension Code(s): I10 - Essential (primary) hypertension Status: Acute Current Visit : Yes (3) Altered mental status Code(s): R41.82 - Altered mental status, unspecified Status: Acute Current Visit: Yes - Review/Management Plan: Abnormality of Gait Increased Confusion MRI Lspine and Tspine were unremarkable UA was unremarkable elevated BNP MRI brain to rule out stroke MRA COW MRI cspine will check EEG telemetry ECHO CUS continue ASA 81mg 1 po bid Addendum pt seen d/w pa mri brain c/w small right cerebellar infarct baby asa qd with plavix 75mg qd for 3 mo's. outpt holter echo cus pt-ot- permissible htn for next 24hrs. (2) Hypertension Qualifiers: Hypertension type: essential hypertension Qualified Code(s): I10 - Essential (primary) hypertension (3) Altered mental status Qualifiers: Altered mental status type: disorientation Qualified Code(s): R41.0 - Disorientation, unspecified
[2017-10-12 16:20] LABS: Troponin I 0.02 ng/mL (0.02-0.05)
--- NOTE | 2017-10-12 16:38 | MR ---
EXAM DATE: 10/12/2017 4:34 PM EDT AGE/SEX: 87 years / Male INDICATIONS: Inability to ambulate. CLINICAL DATA: This is the patient's subsequent encounter. Patient reports that signs and symptoms h ave been present for 1 day and indicates a pain score of 0/10. MEDICAL/SURGICAL HISTORY: Renal insufficiency, chronic. Hypertension. Cholecystectomy. Tonsil lectomy. Umbilical hernia repair. COMPARISON: [facility], CT HEAD W/O CONTRAST, 10/11/2017. . TECHNIQUE: Multiplanar, multisequence examination of the brain was performed without contrast. FINDINGS: Cerebrum: The ventricles are normal for age. No evidence of midline shift, mass lesion, hemorrhage. . No extraaxial fluid collections are seen. The pituitary gland and suprasellar cistern are normal in configuration. White Matter: Mild to moderate chronic white matter changes are noted bilaterally. This is character istic for patient's age. Posterior Fossa: The cerebellum and brainstem are intact. The 4th ventricle is midline. The cerebel lopontine angle is unremarkable. The cerebellar tonsils are normal in position. Diffusion Imaging: There is a very small area of restricted diffusion involving the right cerebellar hemisphere. This is suggestive of a small acute infarct. Otherwise, the rest of the diffusion-weight ed images are unremarkable. Extracranial: The visualized portions of the orbits and paranasal sinuses are unremarkable. CONCLUSION: 1. Small focal area of restricted diffusion involving the right cerebellar hemisphere characteristic of a small acute infarct. 2. Bilateral cortical atrophy and chronic white matter changes characteristic for patient's age. Electronically signed by: Kenn Caruso MD 10/12/2017 4:37 PM EDT
--- NOTE | 2017-10-12 16:39 | MR ---
EXAM DATE: 10/12/2017 4:31 PM EDT AGE/SEX: 87 years / Male INDICATIONS: Inability to ambulate. CLINICAL DATA: This is the patient's subsequent encounter. Patient reports that signs and symptoms h ave been present for 1 day and indicates a pain score of 0/10. MEDICAL/SURGICAL HISTORY: Renal insufficiency, chronic. Hypertension. Cholecystectomy. Tonsil lectomy. Umbilical hernia repair. [place] [facility] [place]. . TECHNIQUE: 3D [id number]-rrohad MRA was performed. Source images, multiplanar STS MIP, and 3D volum e MIP reconstructions were reviewed. FINDINGS: There is excellent visualization of the major intracranial arteries out to the second-order branch ve ssels. There is no evidence for aneurysm, vessel truncation or stenosis, and no evidence for vascula r malformation. Patient is right vertebral dominant. Both vertebrals are patent. 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 CONCLUSION: 1. Anatomic variant of the [place] as above. 2. Patient is right vertebral dominant. 3. Intracranial vessels are otherwise patent without aneurysmal disease. Electronically signed by: Waqas Sargent MD 10/12/2017 4:38 PM EDT
--- NOTE | 2017-10-12 17:00 | MR ---
EXAM DATE: 10/12/2017 4:48 PM EDT AGE/SEX: 87 years / Male INDICATIONS: Inability to ambulate. CLINICAL DATA: This is the patient's subsequent encounter. Patient reports that signs and symptoms h ave been present for 1 day and indicates a pain score of 0/10. MEDICAL/SURGICAL HISTORY: Renal insufficiency, chronic. Hypertension. Tonsillectomy. Cholecys tectomy. Umbilical hernia repair. COMPARISON: No prior exams available for comparison. TECHNIQUE: Multiplanar, multisequence MRI examination of the cervical spine was performed without co ntrast. FINDINGS: Vertebrae: Normal vertebral body height. Homogeneous marrow signal. Alignment: Normal. Cord: Normal configuration and signal. Post Fossa: The cerebellar tonsils are normal in position. C2-C3: Mild right-sided facet degenerative change. Small posterior disc osteophyte complex. No signi ficant spinal canal or neuroforaminal narrowing. C3-C4: Disc desiccation and disc space narrowing with a small posterior disc osteophyte complex and mild bilateral facet degenerative change. Mild uncovertebral joint hypertrophy. Mild right-sided neur al foraminal narrowing. No significant spinal canal narrowing. C4-C5: Disc desiccation and disc space narrowing with a large posterior disc osteophyte complex whic h abuts the anterior aspect of the spinal cord without causing significant cord effacement. Moderate bilateral facet degenerative change. Moderate uncovertebral joint hypertrophy resulting in mild bilat eral neuroforaminal narrowing, right greater than left. C5-C6: Uncovertebral joint hypertrophy and posterior disc osteophyte complex which abuts the anterio r aspect of the spinal cord without causing cord effacement. Moderate bilateral facet degenerative ch phil. Mild narrowing of the spinal canal in AP dimension. C6-C7: Uncovertebral joint hypertrophy and posterior disc osteophyte complex. Mild to moderate bilat eral facet degenerative change. No significant spinal canal or neuroforaminal narrowing. C7-T1: No epidural impressions seen. CONCLUSION: 1. Degenerative changes as noted above. The posterior disc osteophyte complexes at the level of C4/C 5 and C5/C6 abuts the anterior aspect of the spinal cord without causing significant cord effacement. No abnormal signal is identified within the cord. Electronically signed by: Trini Erwin MD 10/12/2017 4:59 PM EDT
--- NOTE | 2017-10-12 17:05 | US ---
EXAM DATE: 10/12/2017 5:01 PM EDT AGE/SEX: 87 years / Male INDICATIONS: Transient ischemic attack. CLINICAL DATA: This is the patient's initial encounter. Patient reports that signs and symptoms have been present for 1 day and indicates a pain score of 0/10. MEDICAL/SURGICAL HISTORY: Hypercholesterolemia. Kidney disease. Myocardial infarction. Appende ctomy. Cholecystectomy. Tonsillectomy. Coronary artery stent. COMPARISON: No prior exams available for comparison. VELOCITY PARAMETERS: ICA/CCA Ratio: Right 1.9 , Left 0.9 ICA: Right 119 cm/sec, Left 68.3 cm/sec CCA: Right 80.1 cm/sec, Left 85.1 cm/sec ECA: Right 96.3 cm/sec, Left 64.6 cm/sec Vertebral: Right 80.7 cm/sec antegrade, Left 46.3 cm/sec antegrade FINDINGS: Right Carotid: Mild arteriosclerotic plaque is visualized.The waveforms are within normal limits. Left Carotid: Mild arteriosclerotic plaque is visualized. The waveforms are within normal limits. Other: None. CONCLUSION: 1. Right Internal Carotid Artery: No significant stenosis. Mild atherosclerotic plaque. 2. Left Internal Carotid Artery: No significant stenosis. Mild atherosclerotic plaque. Electronically signed by: Trini Erwin MD 10/12/2017 5:03 PM EDT
--- NOTE | 2017-10-12 17:12 | P.HPIM ---
History of Present Illness Service: [facility] Primary Care Physician: Chente Wharton MD Chief Complaint: weakness, abnormal gait History of Present Illness: Patient is an 87-year-old male who yesterday morning noticed that after he woke up and took out the recycling and ate breakfast and then after sitting down and watching TV for 30 minutes. Then he noticed when he tried his stand up his legs felt like they would not hold him up and that he was going to fall. He denies any actual falls. His was able to assist him to the bathroom and bedroom. Denies any history of TIAs or previous strokes denies any history of atrial fibrillation. Had an CT about a year ago had been on Brilinta last week was changed to aspirin twice daily. notes he has been a little bit more confused than usual. Went to the emergency department [place] yesterday there was no cause for found for this he was discharged home today he has been unable to walk EVAC was called for further evaluation has a history of vertigo since last May and doing vestibular rehab and balance therapy in [place]. Denies any symptoms of vertigo no change in speech or weakness right leg is stronger than his left leg. Has a history of hypertension and diabetes. Has a history of stage IV kidney disease. Patient also has history of stents to the groin history of hypertension. Patient has had episodes of urinary incontinence as well as incontinence of stool feels weak and cannot ambulate. Inpatient Certification: I certify that the inpatient services were ordered in accordance with Medicare regulations governing the order. This includes certification that hospital inpatient services are reasonable and necessary and in the case of services not specified as inpatient-only under 42 CFR 419.22(n), that they are appropriately provided as inpatient services in accordance to with the 2-midnight benchmark under 43 CFR 412.3(e) Estimated Total Length of Stay (Days): 3 Plans for Post Hospital Care: Not yet determined Review of Systems All other systems reviewed negative except as stated in HPI [facility] - History History Provided By: Patient - Medical History Medical History: Medical History (Last Reviewed 10/12/17 @ 14:40 by Cherry Quan) High cholesterol Kidney disease Myocardial infarction - Surgical History Surgical History: Surgical History (Last Reviewed 10/12/17 @ 14:40 by Cherry Quan) History of coronary artery stent placement Hx of appendectomy Hx of cholecystectomy Hx of tonsillectomy - Tobacco History Second Hand Smoke Exposure: No Tobacco Use In Past 30 Days: No Smoking Status: Never smoker - Alcohol History How Often Do You Have a Drink Containing Alcohol: Never - Substance Use History Substance History: No History of Abuse - Travel History History of Recent Travel: No Recent Travel in the [place] Within the Last 8 Weeks: No Recent Travel Out of the Country Within the Last 8 Weeks: No - Immunization History Tetanus Immunization: <5 Years Hx Influenza Vaccine This Season: Yes Medications and Allergies Active Medications: Active Medications Acetaminophen (Tylenol) 650 mg PO Q4H PRN PRN Reason: Temp > 100.4 Acetaminophen (Tylenol) 650 mg PO Q6H PRN PRN Reason: PAIN SCALE 1 TO 2 Al Hydroxide/Mg Hydroxide (Milk Of Magnesia Liq) 30 ml PO Q12H PRN PRN Reason: Mild Constipation Bisacodyl (Dulcolax Supp) 10 mg RECTAL DAILY PRN PRN Reason: SEVERE CONSITIPATION Heparin Sodium (Porcine) (Heparin Inj) 5,000 units SQ Q12H YANET Lactulose (Lactulose Liq) 30 ml PO DAILY PRN PRN Reason: SEVERE CONSITIPATION Morphine Sulfate (Morphine Inj) 2 mg IV.PUSH Q3H PRN PRN Reason: PAIN 3-5; IF UABLE TO TAKE PO Morphine Sulfate (Morphine Inj) 4 mg IV.PUSH Q3H PRN PRN Reason: PAIN 6-10;IF UNABLE TO TAKE PO Naloxone HCl (Narcan Inj) 0.4 mg IV.PUSH UNSCH PRN PRN Reason: SEE LABEL COMMENTS Ondansetron HCl (Zofran Inj) 4 mg IV.PUSH Q6H PRN PRN Reason: NAUSEA OR VOMITING Oxycodone HCl (Roxicodone) 5 mg PO Q4H PRN PRN Reason: PAIN SCALE 3 TO 5 Oxycodone HCl (Roxicodone) 10 mg PO Q4H PRN PRN Reason: PAIN SCALE 6 TO 10 Senna/Docusate Sodium (Veronica-Colace) 1 tab PO BID YANET Sennosides (Senokot) 17.2 mg PO Q12H PRN PRN Reason: Moderate Constipation Sodium Chloride (Ns Flush) 2 ml IV.FLUSH PRN PRN PRN Reason: FLUSH AFTER USING IV ACCESS Allergies Allergy/AdvReac Type Severity Reaction Status Date / Time Sulfa (Sulfonamide Allergy Severe Rash Verified 10/12/17 09:27 Antibiotics) Home Medications Medication Instructions Recorded Confirmed Type allopurinol 100 mg PO DAILY 10/11/17 10/12/17 History ascorbic acid (vitamin C) [Vitamin 500 mg PO DAILY 10/11/17 10/12/17 History C] aspirin [Aspir-Low] 81 mg PO BID 10/11/17 10/12/17 History carvedilol 3.125 mg PO DAILY 10/11/17 10/12/17 History cholecalciferol (vitamin D3) 2,000 unit PO DAILY 10/11/17 10/12/17 History [Vitamin D3] clonidine HCl 0.1 mg PO DAILY 10/11/17 10/12/17 History enalapril maleate 5 mg PO BID 10/11/17 10/12/17 History famotidine 20 mg PO DAILY 10/11/17 10/11/17 History oxybutynin chloride 10 mg PO TID 10/11/17 10/12/17 History simvastatin 20 mg PO QPM 10/11/17 10/12/17 History finasteride 5 mg PO DAILY 10/12/17 10/12/17 History Exam Vital signs: Vital Signs 10/12/17 09:30 10/12/17 10:41 10/12/17 10:45 Temperature 98 F Pulse Rate 50 L 56 L Respiratory Rate 18 18 Blood Pressure 179/78 H 205/80 H Pulse Oximetry 98 98 98 10/12/17 14:27 10/12/17 14:51 10/12/17 15:21 Temperature Pulse Rate 63 65 Respiratory Rate 18 16 Blood Pressure 204/84 H 180/82 H Pulse Oximetry 98 96 10/12/17 16:35 Temperature Pulse Rate 62 Respiratory Rate 16 Blood Pressure 182/82 H Pulse Oximetry 97 Intake & Output 10/11/17 10/12/17 10/12/17 18:59 06:59 18:59 Weight 68.946 kg Narrative: GENERAL: Awake alert and oriented 3 talkative and cooperative-was not sure of the month as it was just Labor Day. Did not know who the president was. No disease in the hospital notes his SKIN: Warm and dry. HEAD: Atraumatic. Normocephalic. EYES: Pupils equal and round. No scleral icterus. No injection or drainage. EOMI ENT: No nasal bleeding or discharge. Mucous membranes pink and moist. NECK: Trachea midline. No JVD. CARDIOVASCULAR: Regular rate and rhythm. S1-S2 no S3 or S4 RESPIRATORY: No accessory muscle use. Clear to auscultation. Breath sounds equal bilaterally. GASTROINTESTINAL: Abdomen soft, non-tender, nondistended. Hepatic and splenic margins not palpable. MUSCULOSKELETAL: Extremities without clubbing, cyanosis, or edema. No obvious deformities. NEUROLOGICAL: Awake and alert. No obvious cranial nerve deficits. Motor grossly within normal limits. Five out of 5 muscle strength in the arms. Right leg is decreased with weakness in the left leg is 5 out of 5. Normal speech. PSYCHIATRIC: Appropriate mood and affect; insight and judgment normal. Results - Labs CBC & Chem 7: 10/12/17 09:25 10/12/17 09:25 Labs: Short CBC 10/12/17 Range/Units 09:25 WBC 8.7 (4.0-11.0) th/mm3 Hgb 12.5 L (13.0-17.0) gm/dL Hct 37.3 L (39.0-51.0) % Plt Count 182 (150-450) th/mm3 BMP 10/12/17 09:25 Sodium 144 Potassium 4.4 Chloride 109 H Carbon Dioxide 26.1 BUN 28 H Creatinine 1.89 H Calcium 8.4 L Cardiac Enzymes 10/12/17 10/12/17 Range/Units 09:25 15:15 Total Creatine Kinase 76 89 (39-308) U/L Troponin I Less than 0.02 L 0.02 (0.02-0.05) ng/mL Liver Function 10/12/17 Range/Units 09:25 Total Bilirubin 0.6 (0.2-1.0) mg/dL AST 10 L (15-37) U/L ALT 12 (12-78) U/L Alkaline Phosphatase 85 (45-117) U/L Albumin 3.1 L (3.4-5.0) g/dL Urine 10/12/17 Range/Units 13:15 Urine Color Yellow (Yellw/Straw) Urine Clarity Clear (Clear) Urine pH 6.0 (5.0-8.5) Ur Specific [place] 1.009 (1.002-1.035) Urine Protein Negative (Neg-Trace) mg/dL Urine Glucose (UA) Negative (Negative) mg/dL - Imaging Impressions Head MRI 10/12/17 00:00 CONCLUSION: 1. Small focal area of restricted diffusion involving the right cerebellar hemisphere characteristic of a small acute infarct. 2. Bilateral cortical atrophy and chronic white matter changes characteristic for patient's age. Head MRA 10/12/17 00:00 CONCLUSION: 1. Anatomic variant of the [place] as above. 2. Patient is right vertebral dominant. 3. Intracranial vessels are otherwise patent without aneurysmal disease. Lumbar Spine MRI 10/12/17 09:59 CONCLUSION: 1. Multilevel disc bulges/protrusions. Mild canal stenosis at L4-5. 2. No compression fracture or spondylolisthesis. Thoracic Spine MRI 10/12/17 09:59 CONCLUSION: 1. Kyphosis and diffuse mild degenerative changes. 2. Tiny central protrusions at T7-8 and T8-9 levels. Caprini VTE Risk Assessment Caprini VTE Risk Assessment: Moderate/High Risk (score >= 2) Caprini Risk Assessment Model: Point Value = 1 Point Value = 2 Point Value = 3 Point Value = 5 Age 41-60 Minor surgery BMI > 25 kg/m2 Swollen legs Varicose veins or History of unexplained or recurrent spontaneous Oral contraceptives or hormone replacement Sepsis (< 1 month) Serious lung disease, including pneumonia (< 1 month) Abnormal pulmonary function Acute myocardial infarction Congestive heart failure (< 1 month) History of inflammatory bowel disease Medical patient at bed rest Age 61-74 Arthroscopic surgery Major open surgery (> 45 min) Laparoscopic surgery (> 45 min) Malignancy Confined to bed (> 72 hours) Immobilizing plaster cast Central venous access Age >= 75 History of VTE Family history of VTE Factor V Leiden Prothrombin [id number] Lupus anticoagulant Anticardiolipin antibodies Elevated serum homocysteine Heparin-induced thrombocytopenia Other congenital or acquired thrombophilia Stroke (< 1 month) Elective arthroplasty Hip, pelvis, or leg fracture Acute spinal cord injury (< 1 month) Prophylaxis Regimen: Total Risk Factor Score Risk Level Prophylaxis Regimen 0-1 Low Early ambulation 2 Moderate Order ONE of the following: *Sequential Compression Device (SCD) *Heparin 5000 units SQ BID 3-4 Higher Order ONE of the following medications: *Heparin 5000 units SQ TID *Enoxaparin/Lovenox 40 mg SQ daily (WT < 150 kg, CrCl > 30 mL/min) *Enoxaparin/Lovenox 30 mg SQ daily (WT < 150 kg, CrCl > 10-29 mL/min) *Enoxaparin/Lovenox 30 mg SQ BID (WT < 150 kg, CrCl > 30 mL/min) AND/OR *Sequential Compression Device (SCD) 5 or more Highest Order ONE of the following medications: *Heparin 5000 units SQ TID (Preferred with Epidurals) *Enoxaparin/Lovenox 40 mg SQ daily (WT < 150 kg, CrCl > 30 mL/min) *Enoxaparin/Lovenox 30 mg SQ daily (WT < 150 kg, CrCl > 10-29 mL/min) *Enoxaparin/Lovenox 30 mg SQ BID (WT < 150 kg, CrCl > 30 mL/min) AND *Sequential Compression Device (SCD) Assessment and Plan - Plan Abnormality of gait with increasing weakness and difficulty standing -Consult neurology -MRIs and MRAs and MRI of cervical spine -EEG Echo Carotid Dopplers Continue on aspirin Physical therapy and occupational therapy to eval and treat Hypertension -Continue on home medications-Coreg and aspirin and clonidine and enalapril Chronic kidney disease -monitor and avoid nephrotoxins Hyperlipidemia -continue on home medications-simvastatin History of coronary artery disease -Recently switched off Brilinta Gout continue on allopurinol BPH continue on the finasteride as well as the oxybutynin Code Status: Full code Discussed Condition With: RN and patient and emergency room physician Discharge Planning: Pending improvement will probably need to go to SNF for aggressive rehab therapy
[2017-10-12] MEDS ORDERED: Famotidine 20 MG Tablet PO SCH (17:15)
[2017-10-12] MEDS: Senna/Docusate Sodium 8.6/50 MG Tablet PO SCH (20:27)
[2017-10-12] MEDS: Famotidine 20 MG Tablet PO SCH (20:27)
[2017-10-12] MEDS: Heparin - SQ 10,000 UNITS/ML Vial SQ SCH (20:32)
[2017-10-12] MEDS: Ascorbic Acid 500 MG Tablet PO SCH (20:37)
[2017-10-12] MEDS: Finasteride 5 MG Tablet PO SCH (20:41)
[2017-10-12 21:33] LABS: Troponin I 0.02 ng/mL (0.02-0.05)
[2017-10-13] MEDS: Heparin - SQ 10,000 UNITS/ML Vial SQ SCH ×3 (09:46→20:06)
[2017-10-13] MEDS: Famotidine 20 MG Tablet PO SCH ×2 (09:47→21:52)
[2017-10-13] MEDS: Senna/Docusate Sodium 8.6/50 MG Tablet PO SCH ×2 (09:47→21:54)
[2017-10-13] MEDS: Ascorbic Acid 500 MG Tablet PO SCH (09:48)
[2017-10-13] MEDS: Finasteride 5 MG Tablet PO SCH (09:49)
[2017-10-13 10:08] LABS: Baso # (Auto) 0.1 th/mm3 (0.0-0.2); Baso % (Auto) 0.8 % (0.0-2.0); Eos # (Auto) 0.8 th/mm3 (0.0-0.4); Eos % (Auto) 10.2 % (0.0-4.0); Hematocrit 40.6 % (39.0-51.0); Hemoglobin 13.6 gm/dL (13.0-17.0); Lymph # (Auto) 1.6 th/mm3 (1.0-4.8); Lymph % (Auto) 19.7 % (9.0-44.0); Mean Corpuscular HGB Conc 33.5 % (32.0-36.0); Mean Corpuscular Hemoglobin 30.4 pg (27.0-34.0); Mean Corpuscular Volume 90.7 fL (80.0-100.0); Mean Platelet Volume 10.1 fL (7.0-11.0); Mono # (Auto) 0.6 th/mm3 (0.0-0.9); Mono % (Auto) 7.3 % (0.0-8.0); Neut # (Auto) 4.9 th/mm3 (1.8-7.7); Platelet Count 196 th/mm3 (150-450); Red Blood Count 4.47 mil/mm3 (4.50-5.90); Red Cell Distribution Width 14.6 % (11.6-17.2); White Blood Count 7.9 th/mm3 (4.0-11.0)
[2017-10-13 10:14] LABS: INR 1.1 Ratio; Prothrombin Time 11.3 sec (9.8-11.6)
[2017-10-13 10:28] LABS: Alanine Aminotransferase 12 U/L (12-78); Albumin 3.2 g/dL (3.4-5.0); Anion Gap 9 meq/L (5-15); Aspartate Aminotransferase 10 U/L (15-37); Blood Urea Nitrogen 27 mg/dL (7-18); Calcium 8.4 mg/dL (8.5-10.1); Carbon Dioxide 25.8 meq/L (21.0-32.0); Chloride 110 meq/L (98-107); Glomerular Filtration Rate 34 mL/min (>89); Glucose,Random 101 mg/dL (74-106); Potassium 4.1 meq/L (3.5-5.1); Sodium 145 meq/L (136-145)
[2017-10-13 10:30] LABS: Alkaline Phosphatase 95 U/L (45-117); Total Protein 6.8 g/dL (6.4-8.2)
--- NOTE | 2017-10-13 13:27 | ECG ---
Date Performed: 10/12/2017 Time Performed: 10:39:14 PTAGE: 87 years EKG: SINUS BRADYCARDIA RIGHT BUNDLE BRANCH BLOCK ABNORMAL ECG PREVIOUS TRACING : 10/11/2017 14.33 DOCTOR: Esau Christiansen Interpretating Date/Time 10/13/2017 13:26:14
--- NOTE | 2017-10-13 13:29 | P.PNIM ---
Subjective Interval history: Patient complaint that his right leg "feels weak." Physical Exam Vital signs: Vital Signs 10/12/17 14:27 10/12/17 14:51 10/12/17 15:21 Temperature Pulse Rate 63 65 Respiratory Rate 18 16 Blood Pressure 204/84 H 180/82 H Pulse Oximetry 98 96 10/12/17 16:35 10/12/17 17:39 10/12/17 20:00 Temperature 97.5 F L 98.4 F Pulse Rate 62 85 Respiratory Rate 16 18 18 Blood Pressure 182/82 H 193/68 H 199/85 H Pulse Oximetry 97 97 94 L 10/12/17 21:35 10/13/17 00:00 10/13/17 01:57 Temperature 98.4 F 97.9 F Pulse Rate 64 61 Respiratory Rate 22 19 Blood Pressure 184/82 H 200/88 H 184/69 H Pulse Oximetry 95 93 L 10/13/17 04:00 10/13/17 05:05 10/13/17 07:53 Temperature 97.7 F Pulse Rate 58 L 56 L 63 Respiratory Rate Blood Pressure 193/76 H Pulse Oximetry 93 L 10/13/17 08:00 10/13/17 11:28 10/13/17 12:00 Temperature 97.7 F 97.9 F Pulse Rate 71 68 73 Respiratory Rate 18 18 Blood Pressure 221/91 H 196/85 H 200/86 H Pulse Oximetry 92 L 95 Intake & Output 10/12/17 10/13/17 10/13/17 18:59 06:59 18:59 Output Total 250 / 250 Balance -250 / -250 Weight 68.946 kg 68 kg Output: Urine 250 / 250 Other: # Incontinent Voids 1 Date of Last Bowel Movement 10/13/17 # Bowel Movements 1 - Constitutional no acute distress, cooperative - Routine HEENT Exam Head: Present: normocephalic, atraumatic Eye: Present: EOMI, PERRL, normal accommodation ENT: Present: oropharynx clear - Routine Respiratory Exam Present: CTA bilaterally - Routine Cardiovascular Exam Present: RRR, S1, S2 - Routine Abdominal Exam Present: soft, normoactive bowel sounds - Routine Neurological Exam Present: alert, oriented X3, normal speech Patient has right lower extremity weakness. 3/5 strength on the right lower extremity and 5/5 on the left. Finger to nose test intact. No decrease in sensation of the upper or lower extremities. Results - Labs CBC & Chem 7: 10/13/17 09:43 10/13/17 09:43 Laboratory Results - last 24 hr 10/12/17 10/12/17 10/12/17 13:15 15:15 18:02 WBC RBC Hgb Hct MCV MCH MCHC RDW Plt Count MPV Neut % (Auto) Lymph % (Auto) [place] % (Auto) Eos % (Auto) Baso % (Auto) Neut # (Auto) Lymph # (Auto) [place] # (Auto) Eos # (Auto) Baso # (Auto) WBC Differential Differential Comment PT INR Sodium Potassium Chloride Carbon Dioxide Anion Gap BUN Creatinine Estimated GFR POC Glucose 79 Random Glucose Calcium Total Bilirubin AST ALT Alkaline Phosphatase Total Creatine Kinase 89 Troponin I 0.02 Total Protein Albumin Urine Color Yellow Urine Clarity Clear Urine pH 6.0 Ur Specific [place] 1.009 Urine Protein Negative Urine Glucose (UA) Negative Urine Ketones Trace H Urine Occult Blood Negative Urine Nitrate Negative Urine Bilirubin Negative Urine Urobilinogen Less than 2 Ur Leukocyte Esterase Negative Urine RBC Less than 1 Urine WBC Less than 1 Urine Mucus Few H Micro UA Comment Culture not ind Ur Microscopic Review Not Reportable Urine Culture Comments Culture not ind 10/12/17 10/13/17 10/13/17 20:30 03:04 08:45 WBC RBC Hgb Hct MCV MCH MCHC RDW Plt Count MPV Neut % (Auto) Lymph % (Auto) [place] % (Auto) Eos % (Auto) Baso % (Auto) Neut # (Auto) Lymph # (Auto) [place] # (Auto) Eos # (Auto) Baso # (Auto) WBC Differential Differential Comment PT INR Sodium Potassium Chloride Carbon Dioxide Anion Gap BUN Creatinine Estimated GFR POC Glucose 86 95 Random Glucose Calcium Total Bilirubin AST ALT Alkaline Phosphatase Total Creatine Kinase 99 Troponin I 0.02 Total Protein Albumin Urine Color Urine Clarity Urine pH Ur Specific [place] Urine Protein Urine Glucose (UA) Urine Ketones Urine Occult Blood Urine Nitrate Urine Bilirubin Urine Urobilinogen Ur Leukocyte Esterase Urine RBC Urine WBC Urine Mucus Micro UA Comment Ur Microscopic Review Urine Culture Comments 10/13/17 10/13/17 10/13/17 09:43 09:43 09:43 WBC 7.9 RBC 4.47 L Hgb 13.6 Hct 40.6 MCV 90.7 MCH 30.4 MCHC 33.5 RDW 14.6 Plt Count 196 MPV 10.1 Neut % (Auto) 62.0 Lymph % (Auto) 19.7 [place] % (Auto) 7.3 Eos % (Auto) 10.2 H Baso % (Auto) 0.8 Neut # (Auto) 4.9 Lymph # (Auto) 1.6 [place] # (Auto) 0.6 Eos # (Auto) 0.8 H Baso # (Auto) 0.1 WBC Differential . Differential Comment Auto diff final PT 11.3 INR 1.1 Sodium 145 Potassium 4.1 Chloride 110 H Carbon Dioxide 25.8 Anion Gap 9 BUN 27 H Creatinine 1.89 H Estimated GFR 34 L POC Glucose Random Glucose 101 Calcium 8.4 L Total Bilirubin 0.7 AST 10 L ALT 12 Alkaline Phosphatase 95 Total Creatine Kinase Troponin I Total Protein 6.8 Albumin 3.2 L Urine Color Urine Clarity Urine pH Ur Specific [place] Urine Protein Urine Glucose (UA) Urine Ketones Urine Occult Blood Urine Nitrate Urine Bilirubin Urine Urobilinogen Ur Leukocyte Esterase Urine RBC Urine WBC Urine Mucus Micro UA Comment Ur Microscopic Review Urine Culture Comments - Imaging Impressions Carotid Doppler Study 10/12/17 00:00 CONCLUSION: 1. Right Internal Carotid Artery: No significant stenosis. Mild atherosclerotic plaque. 2. Left Internal Carotid Artery: No significant stenosis. Mild atherosclerotic plaque. Cervical Spine MRI 10/12/17 00:00 CONCLUSION: 1. Degenerative changes as noted above. The posterior disc osteophyte complexes at the level of C4/C5 and C5/C6 abuts the anterior aspect of the spinal cord without causing significant cord effacement. No abnormal signal is identified within the cord. Head MRI 10/12/17 00:00 CONCLUSION: 1. Small focal area of restricted diffusion involving the right cerebellar hemisphere characteristic of a small acute infarct. 2. Bilateral cortical atrophy and chronic white matter changes characteristic for patient's age. Head MRA 10/12/17 00:00 CONCLUSION: 1. Anatomic variant of the [place] as above. 2. Patient is right vertebral dominant. 3. Intracranial vessels are otherwise patent without aneurysmal disease. Lumbar Spine MRI 10/12/17 09:59 CONCLUSION: 1. Multilevel disc bulges/protrusions. Mild canal stenosis at L4-5. 2. No compression fracture or spondylolisthesis. Thoracic Spine MRI 10/12/17 09:59 CONCLUSION: 1. Kyphosis and diffuse mild degenerative changes. 2. Tiny central protrusions at T7-8 and T8-9 levels. Assessment and Plan - Plan This patient is an 87 y/o Male who presented with dizziness and difficulty walking and was found to have a cerebellar infarct. 1. Acute Ischemic Cerebellar CVA. 2. Hypertension 3. CKD stage IV 4. Coronary Artery disease with History of ID 5. BPH Patient is currently on Asa, Plavix will also be initiated as per neurology recommendations. Risks and benefits of the medication were discussed with the patient and he agrees to start the medication. Echocardiogram, speech and swallow evaluation, and PT/OT evaluation is pending. He has been tolerating a PO diet since last night. Blood pressure medications initiated and we will increase his enalapril dosage. His blood pressure will be monitored and medications will be adjusted as needed. Continue lissy inhibitors for ckd. He has been on asa and was taking brilinta for a year which was recently discontinued. Continue asa, statin, betablocker. Continue finasteride for bph.
[2017-10-13] MEDS: Carvedilol 6.25 MG Tablet PO SCH (21:55)
[2017-10-14] MEDS ORDERED: hydrALAZINE 10 MG Tablet PO SCH ×2 (01:45→09:00)
[2017-10-14] MEDS: Famotidine 20 MG Tablet PO SCH ×2 (08:15→20:38)
[2017-10-14] MEDS: Heparin - SQ 10,000 UNITS/ML Vial SQ SCH ×2 (08:15→20:38)
[2017-10-14] MEDS: Finasteride 5 MG Tablet PO SCH (08:16)
[2017-10-14] MEDS: Ascorbic Acid 500 MG Tablet PO SCH (08:17)
[2017-10-14] MEDS: Senna/Docusate Sodium 8.6/50 MG Tablet PO SCH (08:18)
[2017-10-14] MEDS: Carvedilol 6.25 MG Tablet PO SCH ×3 (08:20→20:38)
[2017-10-14 09:17] VITALS: RESP 18
--- NOTE | 2017-10-14 11:39 | ECHRPT ---
Indication: cva/tia CONCLUSIONS Normal left ventricular size. The left ventricular systolic function is normal with an estimated eje ction fraction in the range of 60-65%. Mild concentric left ventricular hypertrophy. No regional wall fortino on abnormalities are present. Mild to moderate thickening and calcification of the mitral valve leaflets, moreso the anterior leaf let. No evidence for significant mitral stenosis. Trileaflet aortic valve. Minimal aortic valve sclerosis is present. Trace aortic valve regurgitation . BP: / HR: Rhythm: Sinus MEASUREMENTS (Male / Female) Normal Values Technical Quality:Fair 2D ECHO LV Diastolic Diameter PLAX 4.0 cm 4.2 - 5.9 / 3.9 - 5.3 cm LV Systolic Diameter PLAX 3.1 cm IVS Diastolic Thickness 1.3 cm 0.6 - 1.0 / 0.6 - 0.9 cm LVPW Diastolic Thickness 1.3 cm 0.6 - 1.0 / 0.6 - 0.9 cm LV Relative Wall Thickness 0.7 RV Internal Dim ED PLAX 2.4 cm LVOT Diameter 2.0 cm LA Systolic Diameter LX 3.3 cm 3.0 - 4.0 / 2.7 - 3.8 cm LV Ejection Fraction MOD 4C 57.6 % LV Ejection Fraction 4C AL 59.0 % M-MODE Aortic Root Diameter MM 1.9 cm LA Systolic Diameter MM 2.8 cm LA Ao Ratio MM 1.5 AV Cusp Separation MM 1.0 cm DOPPLER AV Peak Velocity 170.0 cm/s AV Peak Gradient 11.6 mmHg AI Peak Velocity 216.0 cm/s AI Peak Gradient 18.7 mmHg AI Pressure Half Time 518.5 ms LVOT Peak Velocity 112.0 cm/s LVOT Peak Gradient 5.0 mmHg AV Area Cont Eq pk 2.1 cm MV Area PHT 1.8 cm Mitral E Point Velocity 96.7 cm/s Mitral A Point Velocity 127.0 cm/s Mitral E to A Ratio 0.8 LV E' Lateral Velocity 5.2 cm/s Mitral E to LV E' Lateral Ratio 18.7 LV E' Septal Velocity 4.0 cm/s Mitral E to LV E' Septal Ratio 24.2 PV Peak Velocity 99.1 cm/s PV Peak Gradient 3.9 mmHg FINDINGS LEFT VENTRICLE Normal left ventricular size. The left ventricular systolic function is normal with an estimated eje ction fraction in the range of 60-65%. Mild concentric left ventricular hypertrophy. No regional wall fortino on abnormalities are present. RIGHT VENTRICLE Normal right ventricular size and systolic function. LEFT ATRIUM The left atrial size is normal. RIGHT ATRIUM The right atrial size is normal. ATRIAL SEPTUM Normal atrial septal thickness without atrial level shunting by limited color doppler interrogation. AORTA The aortic root and proximal ascending aorta are normal in size on limited imaging. MITRAL VALVE Mild to moderate thickening and calcification of the mitral valve leaflets, moreso the anterior leaf let. No evidence for significant mitral stenosis. AORTIC VALVE Trileaflet aortic valve. Minimal aortic valve sclerosis is present. Trace aortic valve regurgitation. TRICUSPID VALVE Structurally normal tricuspid valve. No tricuspid valve stenosis or regurgitation. PULMONARY VALVE The pulmonary valve is not well visualized. VESSELS The inferior vena cava is normal in size. PERICARDIUM No pericardial effusion. Maximo Mehta MD (Electronically Signed) Final Date:14 October 2017 11:38
--- NOTE | 2017-10-14 11:59 | P.PNIM ---
Subjective Interval history: Patient awake sitting upright in bed. He states that he feels okay. Physical Exam Vital signs: Vital Signs 10/13/17 12:00 10/13/17 16:17 10/13/17 18:58 Temperature 97.9 F 98.1 F Pulse Rate 73 78 Respiratory Rate 18 16 Blood Pressure 200/86 H 205/91 H 205/92 H Pulse Oximetry 95 96 10/13/17 19:38 10/13/17 20:00 10/13/17 21:56 Temperature 98.2 F 97.9 F Pulse Rate 66 70 Respiratory Rate 22 20 Blood Pressure 212/93 H 201/91 H Pulse Oximetry 98 97 93 L 10/14/17 00:00 10/14/17 01:28 10/14/17 04:00 Temperature 98.0 F 97.6 F Pulse Rate 62 60 57 L Respiratory Rate 21 15 22 Blood Pressure 205/91 H 214/80 H 200/87 H Pulse Oximetry 96 97 10/14/17 05:05 10/14/17 07:44 10/14/17 09:15 Temperature 97.8 F Pulse Rate 56 L 65 Respiratory Rate 18 Blood Pressure 210/74 H 210/78 H 206/88 H Pulse Oximetry 95 Intake & Output 10/13/17 10/14/17 10/14/17 18:59 06:59 18:59 Weight 67.585 kg 67.6 kg Other: Bladder Irrigation Fluid - Amount Drained Condom 675 Date of Last Bowel Movement 10/13/17 Weight On Admission 67.585 kg Narrative: General patient in no acute distress HEENT extraocular movements are intact, clear oropharyngeal mucosa, no JVD Cardiovascular S1-S2 audible, no murmurs rubs or gallops Respiratory clear to auscultation bilaterally Abdomen soft, nontender, nondistended, normal bowel sounds Extremities no edema 2+ distal pulses in bilateral upper and lower extremities Neuro patient is alert and oriented x3 he is responding to my questions and commands appropriately he has weakness of his right lower extremity 2/5 strength , the left lower extremity has 4/5 strength. Finger to nose test intact cranial nerves II through XII appear to be normal. - Urinary Catheter Management Condom Cath placed during this visit: no Results - Labs CBC & Chem 7: 10/13/17 09:43 10/13/17 09:43 Laboratory Results - last 24 hr 10/13/17 10/13/17 10/14/17 13:38 16:24 08:07 POC Glucose 96 141 H 114 H Assessment and Plan - Assessment (1) Acute cerebrovascular accident of cerebellum Code(s): I63.9 - Cerebral infarction, unspecified Status: Acute - Plan This patient is an 87-year-old male who presented to our emergency department with complaints of dizziness and suffered a fall while at home. He was found to have an elevated blood pressure imaging of the brain showed an acute ischemic infarct of the cerebellum. 1. Uncontrolled hypertension 2. Acute ischemic cerebellar infarct 3. Chronic kidney disease stage IV 4. BPH 5. History of myocardial infarction status post stenting The patient has had systolic blood pressure above 190 overnight. His beta- aston dose was held this morning due to bradycardia his heart rate has been in the 50s. Hydralazine has been added to the patient's blood pressure regimen he will be given a dose of IV Vasotec. We will continue to monitor the patient' s blood pressure and adjust his blood pressure medications as needed. The patient still has right lower extremity weakness as described above. No change in the patient's neurological examination. Continue aspirin, Plavix, statin. Echocardiogram is pending and will be followed up. Continue physical therapy. Continue finasteride for BPH. The patient is following up with an outpatient trimmer tailer will order an a.m. basic metabolic panel.
[2017-10-14] MEDS: hydrALAZINE 50 MG Tablet PO SCH ×2 (12:36→17:01)
[2017-10-15] MEDS: hydrALAZINE 25 MG Tablet PO SCH ×2 (02:06→08:25)
[2017-10-15] MEDS: Ascorbic Acid 500 MG Tablet PO SCH (08:24)
[2017-10-15] MEDS: Heparin - SQ 10,000 UNITS/ML Vial SQ SCH (08:24)
[2017-10-15] MEDS: Finasteride 5 MG Tablet PO SCH (08:24)
[2017-10-15] MEDS: Famotidine 20 MG Tablet PO SCH (08:24)
[2017-10-15] MEDS: Carvedilol 6.25 MG Tablet PO SCH (08:25)
[2017-10-15 08:44] LABS: Carbon Dioxide 23.7 meq/L (21.0-32.0)
--- NOTE | 2017-10-15 11:21 | P.PN ---
Subjective Interval history: right leg near baseline ready for rehab . Physical Exam Vital signs: Vital Signs 10/14/17 12:35 10/14/17 13:17 10/14/17 16:00 Temperature 97.9 F Pulse Rate 65 67 63 Respiratory Rate 18 18 Blood Pressure 205/87 H 201/86 H 199/79 H Pulse Oximetry 95 96 10/14/17 18:27 10/14/17 19:31 10/14/17 20:00 Temperature 98.1 F 98 F Pulse Rate 75 78 73 Respiratory Rate 18 18 Blood Pressure 144/78 H 184/81 H 197/86 H Pulse Oximetry 96 95 10/15/17 00:00 10/15/17 04:00 10/15/17 04:31 Temperature 97.8 F 97.5 F L Pulse Rate 80 79 68 Respiratory Rate 18 18 Blood Pressure 176/79 H 133/58 L Pulse Oximetry 97 96 10/15/17 08:00 10/15/17 10:45 Temperature 98 F Pulse Rate 85 Respiratory Rate 18 Blood Pressure 132/69 Pulse Oximetry 95 98 Intake & Output 10/14/17 10/15/17 10/15/17 18:59 06:59 18:59 Output Total 750 / 750 800 / 800 Balance -750 / -750 -800 / -800 Weight 66.8 kg 65.7 kg Output: Urine 750 / 750 800 / 800 Other: # Incontinent Voids 2 Date of Last Bowel Movement 10/14/17 10/14/17 10/14/17 # Incontinent Bowel Movements 1 Narrative: awake alert nad fluent perrla motor ue 5/5 no drift fnf nl rle 4+/5 sensory intact lt t dtrs 1-2+ gait per PT - Urinary Catheter Management Condom Cath placed during this visit: no Results - Labs CBC & Chem 7: 10/13/17 09:43 10/15/17 07:40 Laboratory Results - last 24 hr 10/15/17 07:40 Sodium 142 Potassium 4.0 Chloride 108 H Carbon Dioxide 23.7 Anion Gap 10 BUN 31 H Creatinine 1.68 H Estimated GFR 39 L Random Glucose 115 H Calcium 9.0 Assessment and Plan - Assessment (1) Gait instability Code(s): R26.81 - Unsteadiness on feet Status: Acute (2) Hypertension Code(s): I10 - Essential (primary) hypertension Status: Acute (3) Altered mental status Code(s): R41.82 - Altered mental status, unspecified Status: Acute - Plan right cerebellar small infarct rehab [facility] asa and plavix for 3 mo's then only plavix 75mg qd f/u in office post d/c from rehab (2) Hypertension Qualifiers: Hypertension type: essential hypertension Qualified Code(s): I10 - Essential (primary) hypertension (3) Altered mental status Qualifiers: Altered mental status type: disorientation Qualified Code(s): R41.0 - Disorientation, unspecified
--- NOTE | 2017-10-15 11:35 | P.DS ---
Date of admission: 10/12/17 14:47 Primary care physician: Chente Wharton MD Brief History from admission: HPI from the admitting physician Patient is an 87-year-old male who yesterday morning noticed that after he woke up and took out the recycling and ate breakfast and then after sitting down and watching TV for 30 minutes. Then he noticed when he tried his stand up his legs felt like they would not hold him up and that he was going to fall. He denies any actual falls. His was able to assist him to the bathroom and bedroom. Denies any history of TIAs or previous strokes denies any history of atrial fibrillation. Had an IL about a year ago had been on Brilinta last week was changed to aspirin twice daily. notes he has been a little bit more confused than usual. Went to the emergency department [place] yesterday there was no cause for found for this he was discharged home today he has been unable to walk [facility] was called for further evaluation has a history of vertigo since last May and doing vestibular rehab and balance therapy in [place]. Denies any symptoms of vertigo no change in speech or weakness right leg is stronger than his left leg. Has a history of hypertension and diabetes. Has a history of stage IV kidney disease. Patient also has history of stents to the groin history of hypertension. Patient has had episodes of urinary incontinence as well as incontinence of stool feels weak and cannot ambulate. Patient update on day of discharge: Patient reports he is feeling okay. He is looking forward to going to rehab. DS: Diagnosis - Discharge Diagnosis (1) Uncontrolled hypertension Status: Acute (2) Acute cerebrovascular accident of cerebellum Status: Acute (3) Altered mental status Status: Acute (4) Gait instability Status: Acute DS: Summary Hospital Course: 87-year-old male who presented to our emergency department with complaints of dizziness and suffered a fall while at home. He was found to have an elevated blood pressure imaging of the brain showed an acute ischemic infarct of the cerebellum. The patient was admitted and treated for acute CVA. He was followed by neurology. He was started on aspirin and Plavix. He is to continue statin therapy. The patient is to continue chronic home medications. His antihypertensives were titrated. He is discharged to [facility] for comprehensive rehabilitation. - Time Spent with Patient Total time spent providing and/or coordinating discharge services: Greater than 30 minutes - Quality: VTE Deep Vein Thrombosis/Pulmonary Embolism Present on Admission: No Exam Vital signs: Vital Signs 10/14/17 12:35 10/14/17 13:17 10/14/17 16:00 Temperature 97.9 F Pulse Rate 65 67 63 Respiratory Rate 18 18 Blood Pressure 205/87 H 201/86 H 199/79 H Pulse Oximetry 95 96 10/14/17 18:27 10/14/17 19:31 10/14/17 20:00 Temperature 98.1 F 98 F Pulse Rate 75 78 73 Respiratory Rate 18 18 Blood Pressure 144/78 H 184/81 H 197/86 H Pulse Oximetry 96 95 10/15/17 00:00 10/15/17 04:00 10/15/17 04:31 Temperature 97.8 F 97.5 F L Pulse Rate 80 79 68 Respiratory Rate 18 18 Blood Pressure 176/79 H 133/58 L Pulse Oximetry 97 96 10/15/17 08:00 10/15/17 10:45 Temperature 98 F Pulse Rate 85 Respiratory Rate 18 Blood Pressure 132/69 Pulse Oximetry 95 98 Intake & Output 10/14/17 10/15/17 10/15/17 18:59 06:59 18:59 Output Total 750 / 750 800 / 800 Balance -750 / -750 -800 / -800 Weight 66.8 kg 65.7 kg Output: Urine 750 / 750 800 / 800 Other: # Incontinent Voids 2 Date of Last Bowel Movement 10/14/17 10/14/17 10/14/17 # Incontinent Bowel Movements 1 Narrative: General patient in no acute distress HEENT extraocular movements are intact, clear oropharyngeal mucosa, no JVD Cardiovascular S1-S2 audible, no murmurs rubs or gallops Respiratory clear to auscultation bilaterally Abdomen soft, nontender, nondistended, normal bowel sounds Extremities no edema 2+ distal pulses in bilateral upper and lower extremities Neuro patient is alert and oriented x3 he is responding to my questions and commands appropriately he has weakness of his right lower extremity 2/5 strength , the left lower extremity has 4/5 strength. Finger to nose test intact cranial nerves II through XII appear to be normal. Results Procedures completed during hospitalization: None Labs on day of discharge: Labs from last 24 hours 10/15/17 07:40 Sodium 142 Potassium 4.0 Chloride 108 H Carbon Dioxide 23.7 Anion Gap 10 BUN 31 H Creatinine 1.68 H Estimated GFR 39 L Random Glucose 115 H Calcium 9.0 - Impressions ITS Impressions Carotid Doppler Study 10/12/17 00:00 CONCLUSION: 1. Right Internal Carotid Artery: No significant stenosis. Mild atherosclerotic plaque. 2. Left Internal Carotid Artery: No significant stenosis. Mild atherosclerotic plaque. Cervical Spine MRI 10/12/17 00:00 CONCLUSION: 1. Degenerative changes as noted above. The posterior disc osteophyte complexes at the level of C4/C5 and C5/C6 abuts the anterior aspect of the spinal cord without causing significant cord effacement. No abnormal signal is identified within the cord. Head MRI 10/12/17 00:00 CONCLUSION: 1. Small focal area of restricted diffusion involving the right cerebellar hemisphere characteristic of a small acute infarct. 2. Bilateral cortical atrophy and chronic white matter changes characteristic for patient's age. Head MRA 10/12/17 00:00 CONCLUSION: 1. Anatomic variant of the [place] as above. 2. Patient is right vertebral dominant. 3. Intracranial vessels are otherwise patent without aneurysmal disease. Lumbar Spine MRI 10/12/17 09:59 CONCLUSION: 1. Multilevel disc bulges/protrusions. Mild canal stenosis at L4-5. 2. No compression fracture or spondylolisthesis. Thoracic Spine MRI 10/12/17 09:59 CONCLUSION: 1. Kyphosis and diffuse mild degenerative changes. 2. Tiny central protrusions at T7-8 and T8-9 levels. Discharge Plan - Discharge Disposition Patient Disposition: [facility] Rehab Inpatient - Discharge Condition Condition: Stable - Discharge Order Discharge Orders: Discharge Order (Routine); Ordered 10/15/17 Ordered By: Rick Shaw - Physicians Team Primary Care Provider: Chente Wharton Attending Provider: Rick Shaw Other Providers: Meghana Tafoya MD
[2017-10-15 12:44] VITALS: BP 141/66; PULSE 83; TEMP 97.7; O2SAT 95
== END 2017-10-15 13:09 ==
LOC: NEPE 08:58 → NEDA 14:47 → NEPGCP 17:37 → N05 10-14 15:20
PROVIDERS: ADMIT Family Medicine; ATTEND Family Medicine